=== PATIENT | female | born 1945 | race Caucasian/White ===

== ENCOUNTER → 2017-05-02 | Outpatient (CLI) | payer MEDICARE, MEDICAID ==
[~2017-05-02] MED LIST: ASPI81TA7 PO; ASTE137S; ATIV0.5T3 PO; AUGM875T27 PO; BACT800T5 PO; CALC600T7 PO; DEPA500T2 PO; DIOV320T PO; DOCQ100C PO; HALO10TA PO; ICAPCAP PO; LASI40TA PO; LEVO88TA2 PO; LIQUSOL OU; LOVA40TA PO; METF1000 PO; NICO21DI5 TD; OCEA0.65; PAXI40TA2 PO; POLY33502 PO; SYNT25TA PO; TAB-TAB PO; TRAV04OPD OU; TRAZ50TA11 PO
--- NOTE | 2017-05-02 14:51 | REPMRS ---
Patient History The patient states she had a clinical breast exam in 05/03 Patient is postmenopausal. Family history of breast cancer in paternal cousin. Digital Woman Screen Mammo: May 02, 2017 - Exam #: [id number] Bilateral CC and MLO view(s) were taken. Technologist: Criselda Gilbert, Technologist Prior study comparison: May 03, 2016, digital woman screen mammo performed at [facility]. May 03, 2015, digital woman screen mammo performed at [facility]. FINDINGS: There are scattered fibroglandular densities. There has been no change in the appearance of the mammogram from the prior studies. There is a mild amount of residual fibroglandular tissue which is fairly symmetric. There is no interval development of dominant mass, architectural distortion, or clustered microcalcification suggestive of malignancy. ASSESSMENT: BI-RADS/ACR category 1 mammogram. Negative. Recommendation Routine screening mammogram in 1 year (for women over age 40). This mammogram was interpreted with the aid of an FDA-approved computer-aided dectection system. Electronically Signed By: Celso Her MD 05/02/17 1816
== END ==
LOC: M WHC 13:44
PROVIDERS: ATTEND Nurse Practitioner Family
DX: Z12.31 Encounter for screening mammogram for malignant neoplasm of breast (principal); Z78.0 Asymptomatic menopausal state
CPT/HCPCS: G0202; G0463

== ENCOUNTER → 2017-05-16 | Outpatient (REF) | payer MEDICARE, MEDICAID ==
[2017-05-16 14:10] LABS: MEAN CORPUSCULAR HEMOGLOBIN 32.3 pg (27.0-33.0); MEAN CORPUSCULAR HGB CONC 33.7 g/dl (32.0-36.5); MEAN CORPUSCULAR VOLUME 95.7 fl (80.0-96.0); RED CELL DISTRIBUTION WIDTH 13.8 % (11.5-14.5); WHITE BLOOD COUNT 7.4 K/mm3 (4.0-10.0)
[2017-05-16 15:57] LABS: ALBUMIN 3.5 GM/DL (3.2-5.2); ALBUMIN/GLOBULIN RATIO 0.83 (1.00-1.93); ALKALINE PHOSPHATASE 81 U/L (45-117); ALT/SGPT 67 U/L (12-78); ANION GAP 9 MEQ/L (8-16); AST/SGOT 56 U/L (15-37); BILIRUBIN,TOTAL 0.3 MG/DL (0.2-1.0); BLOOD UREA NITROGEN 7 MG/DL (7-18); CALCIUM LEVEL 9.6 MG/DL (8.8-10.2); CARBON DIOXIDE LEVEL 28 MEQ/L (21-32); CHLORIDE LEVEL 100 MEQ/L (98-107); CHOLESTEROL LEVEL 187 MG/DL (<200); CREATININE FOR GFR 0.74 MG/DL (0.55-1.02); FREE T4 1.21 NG/DL (0.76-1.46); GLOMERULAR FILTRATION RATE > 60.0 (>39); GLUCOSE, FASTING 134 MG/DL (83-110); POTASSIUM SERUM 4.3 MEQ/L (3.5-5.1); SODIUM LEVEL 137 MEQ/L (136-145); TOTAL PROTEIN 7.7 GM/DL (6.4-8.2); TRIGLYCERIDES LEVEL 170 MG/DL (<150)
== END ==
LOC: M SFHCPLAZ 11:40
PROVIDERS: ATTEND Family Medicine
DX: J44.9 Chronic obstructive pulmonary disease, unspecified (principal); E11.65 Type 2 diabetes mellitus with hyperglycemia; E03.9 Hypothyroidism, unspecified; E78.5 Hyperlipidemia, unspecified; E55.9 Vitamin D deficiency, unspecified
CPT/HCPCS: 80053; 80061; 82306; 83036; 84439; 84443; 85027; G0463

== ENCOUNTER → 2017-07-16 | Outpatient (REF) | payer MEDICARE, MEDICAID ==
[2017-07-16 13:45] LABS: MEAN CORPUSCULAR HEMOGLOBIN 32.8 pg (27.0-33.0); MEAN CORPUSCULAR HGB CONC 34.6 g/dl (32.0-36.5); MEAN CORPUSCULAR VOLUME 94.6 fl (80.0-96.0); RED CELL DISTRIBUTION WIDTH 13.2 % (11.5-14.5); WHITE BLOOD COUNT 7.6 K/mm3 (4.0-10.0)
[2017-07-16 14:25] LABS: VITAMIN B12 LEVEL 737 PG/ML (247-911)
[2017-07-16 14:26] LABS: ALBUMIN 3.6 GM/DL (3.2-5.2); ALKALINE PHOSPHATASE 83 U/L (45-117); ALT/SGPT 82 U/L (12-78); ANION GAP 10 MEQ/L (8-16); AST/SGOT 69 U/L (15-37); BILIRUBIN,TOTAL 0.4 MG/DL (0.2-1.0); BLOOD UREA NITROGEN 7 MG/DL (7-18); CALCIUM LEVEL 9.6 MG/DL (8.8-10.2); CARBON DIOXIDE LEVEL 30 MEQ/L (21-32); CHLORIDE LEVEL 94 MEQ/L (98-107); FOLATE > 24.0 NG/ML (>5.4); GLOMERULAR FILTRATION RATE > 60.0 (>39); GLUCOSE, FASTING 159 MG/DL (83-110); POTASSIUM SERUM 4.6 MEQ/L (3.5-5.1); SODIUM LEVEL 134 MEQ/L (136-145); TOTAL PROTEIN 7.6 GM/DL (6.4-8.2)
== END ==
LOC: M SFHCPLAZ 10:46
PROVIDERS: ATTEND Family Medicine
DX: R53.1 Weakness (principal); E11.65 Type 2 diabetes mellitus with hyperglycemia; E87.1 Hypo-osmolality and hyponatremia; R19.7 Diarrhea, unspecified

== ENCOUNTER → 2018-04-29 | Outpatient (CLI) | payer MEDICARE, MEDICAID ==
[~2018-04-29] MED LIST changes: -ASPI81TA7 PO; -ASTE137S; -ATIV0.5T3 PO; -AUGM875T27 PO; -BACT800T5 PO; -CALC600T7 PO; -DEPA500T2 PO; -DIOV320T PO; -DOCQ100C PO; -HALO10TA PO; -ICAPCAP PO; +ISOVUE-370 76% 100ML VIAL (Q9967) As Ordered; -LASI40TA PO; -LEVO88TA2 PO; -LIQUSOL OU; -LOVA40TA PO; -METF1000 PO; -NICO21DI5 TD; -OCEA0.65; -PAXI40TA2 PO; -POLY33502 PO; -SYNT25TA PO; -TAB-TAB PO; -TRAV04OPD OU; -TRAZ50TA11 PO
[2018-04-29 16:01] LABS: ALBUMIN 3.5 GM/DL (3.2-5.2); ALBUMIN/GLOBULIN RATIO 0.83 (1.00-1.93); ALKALINE PHOSPHATASE 84 U/L (45-117); ALT/SGPT 52 U/L (12-78); ANION GAP 9 MEQ/L (8-16); AST/SGOT 43 U/L (7-37); BILIRUBIN,TOTAL 0.4 MG/DL (0.2-1.0); BLOOD UREA NITROGEN 9 MG/DL (7-18); CALCIUM LEVEL 9.6 MG/DL (8.8-10.2); CARBON DIOXIDE LEVEL 32 MEQ/L (21-32); CHLORIDE LEVEL 89 MEQ/L (98-107); CREATININE FOR GFR 0.76 MG/DL (0.55-1.30); GLOMERULAR FILTRATION RATE > 60.0 (>39); GLUCOSE, FASTING 309 MG/DL (70-100); POTASSIUM SERUM 4.5 MEQ/L (3.5-5.1); SODIUM LEVEL 130 MEQ/L (136-145); TOTAL PROTEIN 7.7 GM/DL (6.4-8.2)
== END ==
LOC: M LAB 15:10
DX: K11.1 Hypertrophy of salivary gland (principal); R22.1 Localized swelling, mass and lump, neck
CPT/HCPCS: Q9967

== ENCOUNTER → 2018-08-07 | Outpatient (REF) | payer MEDICARE, MEDICAID | LOC: M LAB REF 18:08 | DX: K11.8 Other diseases of salivary glands (principal) | CPT/HCPCS: 88173 ==

== ENCOUNTER → 2018-08-25 | Outpatient (CLI) | payer MEDICARE, MEDICAID | LOC: M WHC 13:42 | DX: Z01.419 Encounter for gynecological examination (general) (routine) without abnormal findings (principal); Z12.31 Encounter for screening mammogram for malignant neoplasm of breast (principal); Z78.0 Asymptomatic menopausal state; Z79.890 Hormone replacement therapy | CPT/HCPCS: 77067 ==

== ENCOUNTER → 2018-10-01 | Outpatient (CLI) | payer MEDICARE, MEDICAID | LOC: M RAD 13:09 | DX: Z12.2 Encounter for screening for malignant neoplasm of respiratory organs (principal); R91.8 Other nonspecific abnormal finding of lung field; G47.33 Obstructive sleep apnea (adult) (pediatric); Z87.891 Personal history of nicotine dependence | CPT/HCPCS: G0297 ==

== ENCOUNTER → 2018-10-06 | Outpatient (REF) | payer MEDICARE, MEDICAID ==
[2018-10-06 19:16] LABS: BASO # 0.1 10^3/uL (0.0-0.2); EOS # 0.1 10^3/uL (0.0-0.50); EOS % 1.2 % (0.0-3.0); HEMATOCRIT 46.6 % (36.0-47.0); IMMATURE GRANULOCYTE % 0.4 % (0-3.0); LYMPH # 2.5 10^3/uL (1.5-4.5); LYMPH % 27.9 % (24.0-44.0); MEAN CORPUSCULAR HEMOGLOBIN 31.4 pg (27.0-33.0); MEAN CORPUSCULAR HGB CONC 34.3 g/dl (32.0-36.5); MEAN CORPUSCULAR VOLUME 91.4 fl (80.0-96.0); MONO % 10.4 % (0.0-5.0); NEUTROPHILS # 5.4 10^3/uL (1.8-7.7); NEUTROPHILS % 59.1 % (36.0-66.0); PLATELET COUNT, AUTOMATED 253 10^3/uL (150-450); RED CELL DISTRIBUTION WIDTH 13.3 % (11.5-14.5); WHITE BLOOD COUNT 9.1 10^3/uL (4.0-10.0)
[2018-10-06 19:31] LABS: ALBUMIN 3.4 GM/DL (3.2-5.2); ALBUMIN/GLOBULIN RATIO 0.79 (1.00-1.93); ALKALINE PHOSPHATASE 86 U/L (45-117); ALT/SGPT 46 U/L (12-78); ANION GAP 8 MEQ/L (8-16); AST/SGOT 37 U/L (7-37); BILIRUBIN,TOTAL 0.3 MG/DL (0.2-1.0); BLOOD UREA NITROGEN 9 MG/DL (7-18); CALCIUM LEVEL 8.9 MG/DL (8.8-10.2); CARBON DIOXIDE LEVEL 29 MEQ/L (21-32); CHLORIDE LEVEL 98 MEQ/L (98-107); CHOLESTEROL LEVEL 172 MG/DL (<200); CREATININE FOR GFR 0.72 MG/DL (0.55-1.30); FOLATE > 24.0 NG/ML; GLOMERULAR FILTRATION RATE > 60.0 (>39); GLUCOSE, FASTING 317 MG/DL (70-100); HDL CHOLESTEROL 39 MG/DL (>40); LDL CHOLESTEROL 88 MG/DL (<100); NON-HDL-C 133 MG/DL; POTASSIUM SERUM 3.9 MEQ/L (3.5-5.1); SODIUM LEVEL 135 MEQ/L (136-145); TOTAL 25(OH) VITAMIN D 34.3 NG/ML (30.0-100.0); TOTAL PROTEIN 7.7 GM/DL (6.4-8.2); TRIGLYCERIDES LEVEL 224 MG/DL (<150); VITAMIN B12 LEVEL 1136 PG/ML
[2018-10-06 19:32] LABS: ESTIMATED AVERAGE GLUCOSE 298 MG/DL (60-110)
== END ==
LOC: M LAB REF 19:00
DX: I10 Essential (primary) hypertension (principal); E78.70 Disorder of bile acid and cholesterol metabolism, unspecified; E11.8 Type 2 diabetes mellitus with unspecified complications; E03.9 Hypothyroidism, unspecified
CPT/HCPCS: 82746

== ENCOUNTER → 2018-10-22 | Outpatient (CLI) | payer MEDICARE, MEDICAID | LOC: M RAD 15:33 | DX: R91.8 Other nonspecific abnormal finding of lung field (principal) | CPT/HCPCS: 71250 ==

== ENCOUNTER → 2018-11-13 | Outpatient (CLI) | payer MEDICARE, MEDICAID ==
[~2018-11-13] MED LIST changes: +ASPI81TA7 PO; +ASTE137S; +ATIV0.5T3 PO; +AUGM875T27 PO; +BACT800T5 PO; +CALC600T7 PO; +DEPA500T2 PO; +DIOV320T PO; +DOCQ100C PO; +HALO10TA PO; +ICAPCAP PO; -ISOVUE-370 76% 100ML VIAL (Q9967) As Ordered; +ISOVUE-370 76% 100ML VIAL (Q9967) As Ordered ONE; +LASI40TA9 PO; +LEVO88TA2 PO; +LIQUSOL OU; +LOVA40TA PO; +METF1000 PO; +NICO21DI6 TD; +OCEA0.65; +PAXI40TA2 PO; +POLY33502 PO; +SYNT25TA PO; +TAB-TAB PO; +TRAV04OPD OU; +TRAZ-160 PO
--- NOTE | 2018-11-13 13:54 | REP ---
SOFT TISSUE CT STUDY OF THE NECK WITH IV CONTRAST: HISTORY: "Other disease of the salivary glands" CT CONTRAST DOSE: 75 mL of intravenous Isovue 370. Comparison CT study April 29, 2018. CT FINDINGS: A skin marker is placed in the skin over the right side of the neck as on the prior study to denote the level of palpable abnormality. Normal appearing parotid lymph nodes are again seen bilaterally. The parotid glands are normal in radiographic density. No new mass lesion is observed. The right submandibular gland is still a little larger than the left however it has decreased in size today measuring 2.5 x 2.1 x 3.4 cm, previously 3.2 x 2.8 x 4.4 cm. No salivary gland mass lesion is observed. The adjacent soft tissues show no evidence of edematous change. The platysma is not thickened on either side. There are scattered normal-sized anterior jugular lymph nodes. No other mass lesion or cyst is seen. IMPRESSION: The submandibular glands are somewhat smaller today. Stable intraparotid lymph nodes and neck lymph nodes are seen. No mass or adenopathy is observed. Electronically Signed by Samm Jacobs MD 11/13/2018 04:15 P
== END ==
LOC: M RAD 11:15
PROVIDERS: ATTEND Otolaryngology
DX: K11.8 Other diseases of salivary glands (principal)
CPT/HCPCS: 70491; Q9967

== ENCOUNTER → 2018-11-20 | Outpatient (REF) | payer MEDICARE, MEDICAID ==
[~2018-11-20] MED LIST changes: -ISOVUE-370 76% 100ML VIAL (Q9967) As Ordered ONE
[2018-11-20 18:38] LABS: INR 0.99; PROTHROMBIN TIME 13.2 SECONDS (12.1-14.4)
[2018-11-20 18:39] LABS: PARTIAL THROMBOPLASTIN TIME 30.5 SECONDS (25.4-37.6)
== END ==
LOC: M LAB REF 16:52
PROVIDERS: ATTEND Internal Medicine Pulmonary Disease
DX: Z01.82 Encounter for allergy testing (principal); Z01.812 Encounter for preprocedural laboratory examination; Z79.01 Long term (current) use of anticoagulants

== ENCOUNTER → 2018-12-04 | Outpatient (CLI) | payer MEDICARE, MEDICAID ==
[~2018-12-04] MED LIST changes: +LIDOCAINE 1% MDV 20ML VIAL As Ordered ONE
--- NOTE | 2018-12-04 10:17 | REP ---
PA CHEST X-RAY: Single view. HISTORY: The patient is immediately status post CT guided needle biopsy for right upper lobe nodule. FINDINGS: The lungs are well inflated and no evidence of hemorrhage or pneumothorax is seen. No pleural effusion is seen. Cardiomediastinal silhouette is unremarkable. The CT target nodular opacity is not well visualized on PA chest x-ray. IMPRESSION: No complication seen. Post needle biopsy film. Electronically Signed by Samm Jacobs MD 12/04/2018 10:38 A
--- NOTE | 2018-12-04 19:56 | REP ---
CT-GUIDED RIGHT UPPER LOBE LUNG BIOPSY The procedure was performed under the direct supervision of Dr. Jacobs. Patient has a history of a nodular lesion in the anterior segment of the right upper lobe seen on a previous CT scan dated 10/22/2018. The risks and benefits of the procedure were explained to the patient and informed consent was obtained. The right upper lobe lung nodule was localized using CT guidance. The skin was prepped and draped in a sterile fashion. 1% lidocaine was used as a local anesthetic. Using CT guidance a 19/20 gauge coaxial needle biopsy system was inserted and advanced into the nodule. Four core biopsy samples were obtained and sent to lab. The patient tolerated the procedure well and there were no immediate complications. After the appropriate amount of monitored convalescence the patient was discharged from the department. Reviewed by BROOKLYN Gatica 12/04/2018 05:04 P Electronically Signed by Samm Jacobs MD 12/04/2018 07:47 P
== END ==
LOC: M RADPRO 08:01
PROVIDERS: ATTEND Internal Medicine Pulmonary Disease
DX: C34.11 Malignant neoplasm of upper lobe, right bronchus or lung (principal)

== ENCOUNTER → 2018-12-22 | Outpatient (CLI) | payer MEDICARE, MEDICAID ==
[~2018-12-22] MED LIST changes: -LIDOCAINE 1% MDV 20ML VIAL As Ordered ONE
--- NOTE | 2018-12-23 15:03 | REP ---
PET/CT: History: Initial staging squamous cell carcinoma of the lung. Comparisons: Comparison CT study of the chest is from October 22, 2018. The patient is status post CT guided needle biopsy right upper lobe nodule December 04, 2018. TECHNIQUE: 71 minutes following the intravenous injection of a 9.4 mCi dose of F-18 FDG, three-dimensional PET scintigraphy is acquired from the skull base to the proximal thighs. Triplanar noncontrast CT scanning is acquired through the same anatomic range for attenuation correction, and image registration with scan parameters optimized to minimize radiation exposure to the patient. PET scintigraphy and CT datasets were fused and displayed on a workstation with multiplanar and projection display capability. PET/CT Findings: The biopsy-proven squamous cell carcinoma of the right upper lobe is mildly hypermetabolic with maximum standard uptake value 2.3. The other small more posterolateral right upper lobe nodule seen on recent CT study is not hypermetabolic. Maximum standard uptake value is 1.1. No hilar or mediastinal hypermetabolic uptake is seen. No other abnormal hypermetabolic uptake is seen in the chest. Head and neck soft tissues are unremarkable. In the abdomen and pelvis there is no abnormal adrenal or hepatic hypermetabolic uptake. There are several accessory splenules near the splenic hilus and tail of the pancreas. Impression: Mildly hypermetabolic uptake in the malignant nodule in the anterior segment right upper lobe. No other abnormal hypermetabolic uptake is seen. Electronically Signed by Samm Jacobs MD 12/23/2018 07:05 P
== END ==
LOC: M PLARAD 14:27
PROVIDERS: ATTEND Internal Medicine Pulmonary Disease
DX: C34.11 Malignant neoplasm of upper lobe, right bronchus or lung (principal)
CPT/HCPCS: 78815; A9552

== ENCOUNTER → 2019-02-08 | Outpatient (REF) | payer MEDICARE, MEDICAID ==
[2019-02-08 18:15] LABS: BASO # 0.1 10^3/uL (0.0-0.2); BASO % 1.1 % (0.0-1.0); EOS # 0.1 10^3/uL (0.0-0.50); EOS % 1.1 % (0.0-3.0); HEMATOCRIT 45.5 % (36.0-47.0); HEMOGLOBIN 15.4 g/dl (12.0-15.5); LYMPH # 2.6 10^3/uL (1.5-4.5); LYMPH % 28.9 % (24.0-44.0); MEAN CORPUSCULAR HEMOGLOBIN 32.2 pg (27.0-33.0); MEAN CORPUSCULAR HGB CONC 33.8 g/dl (32.0-36.5); MEAN CORPUSCULAR VOLUME 95.2 fl (80.0-96.0); MONO # 0.8 10^3/uL (0.0-0.8); MONO % 9.4 % (0.0-5.0); NEUTROPHILS # 5.3 10^3/uL (1.8-7.7); NEUTROPHILS % 59.2 % (36.0-66.0); PLATELET COUNT, AUTOMATED 257 10^3/uL (150-450); RED BLOOD COUNT 4.78 10^6/uL (4.00-5.40)
[2019-02-08 18:27] LABS: APPEARANCE, URINE CLEAR (CLEAR); BACTERIA, URINE AUTO NEGATIVE (NEGATIVE); BILIRUBIN, URINE AUTO NEGATIVE (NEGATIVE); BLOOD, URINE BLOOD NEGATIVE (NEGATIVE); COLOR, URINE YELLOW (YELLOW); GLUCOSE, URINE (UA) AUTO 3+ mg/dL (NEGATIVE); KETONE, URINE AUTO TRACE mg/dL (NEGATIVE); LEUKOCYTE ESTERASE, URINE AUTO TRACE (NEGATIVE); MUCUS, URINE SMALL (NEGATIVE); NITRITE, URINE AUTO NEGATIVE (NEGATIVE); PROTEIN, URINE AUTO NEGATIVE (NEGATIVE); RBC, URINE AUTO 1 /HPF (0-3); SPECIFIC GRAVITY URINE AUTO 1.028 (1.002-1.035); SQUAMOUS EPITHELIAL CELL UR AU 1 /HPF (0-6); UROBILINOGEN, URINE AUTO 0.2 mg/dL (0.0-2.0); WBC, URINE AUTO 4 /HPF (0-3)
[2019-02-08 19:07] LABS: ALBUMIN 3.4 GM/DL (3.2-5.2); ALT/SGPT 36 U/L (12-78); BILIRUBIN,TOTAL 0.3 MG/DL (0.2-1.0); BLOOD UREA NITROGEN 13 MG/DL (7-18); CALCIUM LEVEL 9.4 MG/DL (8.8-10.2); CARBON DIOXIDE LEVEL 28 MEQ/L (21-32); CHLORIDE LEVEL 96 MEQ/L (98-107); CHOLESTEROL LEVEL 212 MG/DL (<200); CHOLESTEROL RISK RATIO 5.435 (<5); CREATININE FOR GFR 0.89 MG/DL (0.55-1.30); FOLATE > 24.0 NG/ML; GLOMERULAR FILTRATION RATE > 60.0 (>39); GLUCOSE, FASTING 422 MG/DL (70-100); HDL CHOLESTEROL 39 MG/DL (>40); LDL CHOLESTEROL 105 MG/DL (<100); NON-HDL-C 173 MG/DL; SODIUM LEVEL 133 MEQ/L (136-145); TOTAL 25(OH) VITAMIN D 25.5 NG/ML (30.0-100.0); TOTAL PROTEIN 7.4 GM/DL (6.4-8.2); TRIGLYCERIDES LEVEL 338 MG/DL (<150); VITAMIN B12 LEVEL 1132 PG/ML
== END ==
LOC: M LAB REF 16:52
PROVIDERS: ATTEND Nurse Practitioner Family
DX: N39.0 Urinary tract infection, site not specified (principal)

== ENCOUNTER → 2019-04-16 | Outpatient (REF) | payer MEDICARE, MEDICAID ==
[~2019-04-16] MED LIST changes: -HALO10TA PO; +HALO1TAB29 PO; -TRAZ-160 PO; +TRAZ-252 PO
[2019-04-16 19:21] LABS: APPEARANCE, URINE HAZY (CLEAR); BACTERIA, URINE AUTO 1+ (NEGATIVE); BILIRUBIN, URINE AUTO NEGATIVE (NEGATIVE); BLOOD, URINE BLOOD NEGATIVE (NEGATIVE); COLOR, URINE YELLOW (YELLOW); GLUCOSE, URINE (UA) AUTO 2+ mg/dL (NEGATIVE); KETONE, URINE AUTO TRACE mg/dL (NEGATIVE); LEUKOCYTE ESTERASE, URINE AUTO 2+ (NEGATIVE); MUCUS, URINE SMALL (NEGATIVE); NITRITE, URINE AUTO NEGATIVE (NEGATIVE); PROTEIN, URINE AUTO NEGATIVE (NEGATIVE); RBC, URINE AUTO 1 /HPF (0-3); SPECIFIC GRAVITY URINE AUTO 1.015 (1.002-1.035); SQUAMOUS EPITHELIAL CELL UR AU 2 /HPF (0-6); UROBILINOGEN, URINE AUTO 0.2 mg/dL (0.0-2.0); WBC, URINE AUTO 9 /HPF (0-3)
== END ==
LOC: M LAB REF 18:30
PROVIDERS: ATTEND Nurse Practitioner Family
DX: R30.0 Dysuria (principal)

== ENCOUNTER → 2019-04-29 | Outpatient (REF) | payer MEDICARE, MEDICAID ==
[2019-04-29 18:09] LABS: APPEARANCE, URINE CLEAR (CLEAR); BACTERIA, URINE AUTO NEGATIVE (NEGATIVE); BILIRUBIN, URINE AUTO NEGATIVE (NEGATIVE); BLOOD, URINE BLOOD NEGATIVE (NEGATIVE); COLOR, URINE YELLOW (YELLOW); GLUCOSE, URINE (UA) AUTO 2+ mg/dL (NEGATIVE); KETONE, URINE AUTO TRACE mg/dL (NEGATIVE); LEUKOCYTE ESTERASE, URINE AUTO TRACE (NEGATIVE); NITRITE, URINE AUTO NEGATIVE (NEGATIVE); PROTEIN, URINE AUTO NEGATIVE (NEGATIVE); RBC, URINE AUTO 0 /HPF (0-3); SPECIFIC GRAVITY URINE AUTO 1.009 (1.002-1.035); SQUAMOUS EPITHELIAL CELL UR AU 0 /HPF (0-6); UROBILINOGEN, URINE AUTO 0.2 mg/dL (0.0-2.0); WBC, URINE AUTO 4 /HPF (0-3)
== END ==
LOC: M LAB REF 17:27
PROVIDERS: ATTEND Nurse Practitioner Family
DX: R30.0 Dysuria (principal)

== ENCOUNTER → 2019-06-28 | Outpatient (REF) | payer MEDICARE, MEDICAID ==
[2019-06-28 13:42] LABS: BASO # 0.1 10^3/uL (0.0-0.2); BASO % 1.2 % (0.0-1.0); EOS # 0.1 10^3/uL (0.0-0.50); EOS % 1.8 % (0.0-3.0); HEMATOCRIT 44.3 % (36.0-47.0); HEMOGLOBIN 15.4 g/dl (12.0-15.5); LYMPH # 1.6 10^3/uL (1.5-4.5); LYMPH % 23.8 % (24.0-44.0); MEAN CORPUSCULAR HEMOGLOBIN 32.6 pg (27.0-33.0); MEAN CORPUSCULAR HGB CONC 34.8 g/dl (32.0-36.5); MEAN CORPUSCULAR VOLUME 93.9 fl (80.0-96.0); MONO # 0.9 10^3/uL (0.0-0.8); MONO % 12.9 % (0.0-5.0); NEUTROPHILS # 3.9 10^3/uL (1.8-7.7); NEUTROPHILS % 59.7 % (36.0-66.0); PLATELET COUNT, AUTOMATED 270 10^3/uL (150-450); RED BLOOD COUNT 4.72 10^6/uL (4.00-5.40); WHITE BLOOD COUNT 6.6 10^3/uL (4.0-10.0)
[2019-06-28 14:17] LABS: ALBUMIN 3.7 GM/DL (3.2-5.2); ALT/SGPT 55 U/L (12-78); BILIRUBIN,TOTAL 0.4 MG/DL (0.2-1.0); BLOOD UREA NITROGEN 11 MG/DL (7-18); CALCIUM LEVEL 9.6 MG/DL (8.8-10.2); CARBON DIOXIDE LEVEL 30 MEQ/L (21-32); CHLORIDE LEVEL 95 MEQ/L (98-107); CHOLESTEROL LEVEL 184 MG/DL (<200); CHOLESTEROL RISK RATIO 3.914 (<5); CREATININE FOR GFR 0.66 MG/DL (0.55-1.30); GLOMERULAR FILTRATION RATE > 60.0 (>39); GLUCOSE, FASTING 203 MG/DL (70-100); HDL CHOLESTEROL 47 MG/DL (>40); LDL CHOLESTEROL 107 MG/DL (<100); NON-HDL-C 137 MG/DL; POTASSIUM SERUM 4.2 MEQ/L (3.5-5.1); SODIUM LEVEL 133 MEQ/L (136-145); TOTAL PROTEIN 7.8 GM/DL (6.4-8.2); TRIGLYCERIDES LEVEL 150 MG/DL (<150)
== END ==
LOC: M LAB REF 13:00
PROVIDERS: ATTEND Nurse Practitioner Family
DX: I10 Essential (primary) hypertension (principal); E11.8 Type 2 diabetes mellitus with unspecified complications; E78.70 Disorder of bile acid and cholesterol metabolism, unspecified

== ENCOUNTER → 2019-07-07 | Outpatient (REF) | payer MEDICARE, MEDICAID ==
[2019-07-07 20:25] LABS: APPEARANCE, URINE CLEAR (CLEAR); BACTERIA, URINE AUTO NEGATIVE (NEGATIVE); BILIRUBIN, URINE AUTO NEGATIVE (NEGATIVE); BLOOD, URINE BLOOD NEGATIVE (NEGATIVE); COLOR, URINE YELLOW (YELLOW); GLUCOSE, URINE (UA) AUTO 3+ mg/dL (NEGATIVE); KETONE, URINE AUTO TRACE mg/dL (NEGATIVE); LEUKOCYTE ESTERASE, URINE AUTO NEGATIVE (NEGATIVE); NITRITE, URINE AUTO NEGATIVE (NEGATIVE); PROTEIN, URINE AUTO NEGATIVE (NEGATIVE); RBC, URINE AUTO 1 /HPF (0-3); SPECIFIC GRAVITY URINE AUTO 1.023 (1.002-1.035); SQUAMOUS EPITHELIAL CELL UR AU 1 /HPF (0-6); UROBILINOGEN, URINE AUTO 0.2 mg/dL (0.0-2.0); WBC, URINE AUTO 3 /HPF (0-3)
== END ==
LOC: M LAB REF 19:09
PROVIDERS: ATTEND Nurse Practitioner Family
DX: R30.0 Dysuria (principal)

== ENCOUNTER → 2019-07-29 | Outpatient (REF) | payer MEDICARE, MEDICAID, OTHER ==
[2019-07-29 19:59] LABS: APPEARANCE, URINE HAZY (CLEAR); BACTERIA, URINE AUTO NEGATIVE (NEGATIVE); BILIRUBIN, URINE AUTO NEGATIVE (NEGATIVE); BLOOD, URINE BLOOD NEGATIVE (NEGATIVE); COLOR, URINE YELLOW (YELLOW); GLUCOSE, URINE (UA) AUTO 3+ mg/dL (NEGATIVE); KETONE, URINE AUTO 1+ mg/dL (NEGATIVE); LEUKOCYTE ESTERASE, URINE AUTO TRACE (NEGATIVE); NITRITE, URINE AUTO NEGATIVE (NEGATIVE); PROTEIN, URINE AUTO NEGATIVE (NEGATIVE); RBC, URINE AUTO 3 /HPF (0-3); SPECIFIC GRAVITY URINE AUTO 1.031 (1.002-1.035); SQUAMOUS EPITHELIAL CELL UR AU 2 /HPF (0-6); UROBILINOGEN, URINE AUTO 0.2 mg/dL (0.0-2.0); WBC, URINE AUTO 10 /HPF (0-3)
== END ==
LOC: M LAB REF 19:14
PROVIDERS: ATTEND Nurse Practitioner Family
DX: R35.0 Frequency of micturition (principal); R30.0 Dysuria

== ENCOUNTER → 2019-08-02 | Outpatient (CLI) | payer MEDICARE, MEDICAID ==
[~2019-08-02] MED LIST changes: +AMMO12CR7; +BRIM1OPD; +GLIP10TA18; +LATU80TA; +LOSA50TA88; +NYST10CR
--- NOTE | 2019-08-02 14:12 | REP ---
CT of the chest without IV contrast for restaging of lung carcinoma. Comparison is 12/23/2017. The known irregular mass anteromedially in the right upper lobe has increased in size. The mass today measures: 3.1 cm AP . by 1.9 cm transversely . by 1.9 cm craniocaudad. Previously this measured: 2.9 cm AP by 1.0 cm transversely by 1.3 cm craniocaudad. The known lung nodule posterolaterally in the right upper lobe previously measured 6.2 mm. This nodule has enlarged and today measures 0.5 cm. There are no other lung nodules, as previously. There are no infiltrates or pleural effusions. There is no mediastinal adenopathy. This is unchanged. There are enlarged axillary nodes bilaterally with normal fatty paulino, unchanged. These do not appear pathologically enlarged. The study is insensitive for hilar lymph node enlargement in the absence of IV contrast. The thoracic aorta is unremarkable except for calcified atheroma. Cardiac size is normal. In the upper abdomen there is no adrenal mass. The liver again appears prominent, unchanged. The gallbladder and pancreas are unremarkable. Spleen is normal size. To splenules medial t this spleen are unchanged. Impression: The to be known right lung nodules have increased in size. There are no new lung nodules. There are no infiltrates or effusions. No mediastinal or axillary lymphadenopathy. Prominent liver, unchanged. Electronically Signed by Celso Hernandez MD 08/02/2019 02:05 P
== END ==
LOC: M RAD 12:07
PROVIDERS: ATTEND Radiology Radiation Oncology
DX: C34.91 Malignant neoplasm of unspecified part of right bronchus or lung (principal)

== ENCOUNTER → 2019-08-26 | Outpatient (CLI) | payer MEDICARE, MEDICAID ==
[~2019-08-26] MED LIST changes: -AMMO12CR7; -BRIM1OPD; -GLIP10TA18; -LATU80TA; -LOSA50TA88; -NYST10CR
--- NOTE | 2019-08-26 15:37 | REPMRS ---
Patient History The patient states she had a clinical breast exam in 08/2019. Patient is postmenopausal, had previous chest radiation therapy at age 72, and has history of lung cancer at age 72. Family history of breast cancer in paternal cousin, breast cancer in paternal aunt. Took estrogen for 1 year. Digital Woman Screen Mammo: August 26, 2019 - Exam #: [id number] Bilateral CC and MLO view(s) were taken. Technologist: Criselda Gilbert, Technologist Prior study comparison: August 25, 2018, bilateral digital woman screen mammo performed at [facility]. May 02, 2017, digital woman screen mammo performed at [facility]. May 03, 2016, digital woman screen mammo performed at [facility]. FINDINGS: There are scattered fibroglandular densities. There has been no change in the appearance of the mammogram from the prior studies. There is a mild amount of scattered fibroglandular density which is fairly symmetric. There is no interval development of dominant mass, architectural distortion, or grouped microcalcification suggestive of malignancy. 3-D tomosynthesis shows no additional findings. Assessment: BI-RADS/ACR category 1 mammogram. Negative Mammogram. Recommendation Routine screening mammogram of both breasts in 1 year (for women over age 40). This patient's Lifetime Breast Cancer Risk is estimated at 5.9 %. This mammogram was interpreted with the aid of an FDA-approved computer-aided dectection system. Electronically Signed By: Wojciech Jacobs MD 08/26/19 [id number]
== END ==
LOC: M WHC 13:48
PROVIDERS: ATTEND Nurse Practitioner Family
DX: Z12.31 Encounter for screening mammogram for malignant neoplasm of breast (principal); Z78.0 Asymptomatic menopausal state; Z92.3 Personal history of irradiation; Z92.23 Personal history of estrogen therapy
CPT/HCPCS: 77063; 77067; G0463

== ENCOUNTER → 2019-09-14 | Outpatient (CLI) | payer MEDICARE, MEDICAID | LOC: M PLARAD 10:28 | PROVIDERS: ATTEND Radiology Radiation Oncology | DX: C34.11 Malignant neoplasm of upper lobe, right bronchus or lung (principal); Z53.9 Procedure and treatment not carried out, unspecified reason ==

== ENCOUNTER → 2019-10-12 | Outpatient (CLI) | payer MEDICARE, MEDICAID ==
--- NOTE | 2019-10-13 09:46 | REP ---
PET/CT: HISTORY: Restaging right upper lobe lung carcinoma. Status post CT guided needle biopsy showing moderately differentiated non-small cell carcinoma, consistent with squamous cell carcinoma. Treated with SBRT. Enlarging separate nodule posteriorly in the right upper lobe. COMPARISONS: Comparison PET/CT study December 22, 2018. Comparison CT study of the chest is from August 02, 2019. TECHNIQUE: Approximately 45 minutes following the intravenous injection of a 8.15 mCi dose of F-18 FDG, three-dimensional PET scintigraphy is acquired from the skull base to the proximal thighs. Triplanar noncontrast CT scanning is acquired through the same anatomic range for attenuation correction, and image registration with scan parameters optimized to minimize radiation exposure to the patient. PET scintigraphy and CT datasets were fused and displayed on a workstation with multiplanar and projection display capability. PET/CT FINDINGS: Head and neck soft tissues are unremarkable. No supraclavicular or other hypermetabolic adenopathy is seen. In the chest, the biopsy-proven, non-small cell carcinoma anterior aspect of the right upper lobe which was treated with SBRT, shows mildly hypermetabolic uptake. Maximum standard uptake value is 4.02. Previously, this was 2.3. This residual hypermetabolic uptake may be related to postradiation fibrosis at the treatment site. The more posteriorly situated smaller nodule remains non-hypermetabolic. Maximum standard uptake value in this is 1.34, previously 1.1. No other abnormal hypermetabolic uptake is seen in the thorax. No abnormal hypermetabolic uptake is seen in the abdomen or pelvis. IMPRESSION: Hypermetabolic uptake persists in the treated lesion in the anterior segment of the right upper lobe. The smaller nodule more posterolaterally in the right upper lobe remains non avid. No other hypermetabolic uptake. Electronically Signed by Samm Jacobs MD 10/13/2019 11:17 A
== END ==
LOC: M PLARAD 14:19
PROVIDERS: ATTEND Radiology Radiation Oncology
DX: R91.8 Other nonspecific abnormal finding of lung field (principal); C34.11 Malignant neoplasm of upper lobe, right bronchus or lung
CPT/HCPCS: 78815; A9552

== ENCOUNTER 2019-10-31 10:16 | Emergency (ER) | payer MEDICARE, MEDICAID ==
[~2019-10-31] VITALS: Ht 165.1 cm; Wt 93.2 kg
[2019-10-31] MEDS ORDERED: ASPIRIN 81 MG CHEW TABLET PO ONE (10:45)
[2019-10-31 10:51] LABS: BASO # 0.1 10^3/uL (0.0-0.2); BASO % 1.1 % (0.0-1.0); EOS # 0.1 10^3/uL (0.0-0.5); EOS % 1.8 % (0.0-3.0); HEMATOCRIT 43.3 % (36.0-47.0); HEMOGLOBIN 14.9 g/dl (12.0-15.5); LYMPH # 1.7 10^3/uL (1.5-5.0); LYMPH % 23.8 % (24.0-44.0); MEAN CORPUSCULAR HEMOGLOBIN 31.8 pg (27.0-33.0); MEAN CORPUSCULAR HGB CONC 34.4 g/dl (32.0-36.5); MEAN CORPUSCULAR VOLUME 92.5 fl (80.0-96.0); MONO % 13.4 % (0.0-5.0); NEUTROPHILS # 4.3 10^3/uL (1.5-8.5); NEUTROPHILS % 59.5 % (36.0-66.0); PLATELET COUNT, AUTOMATED 272 10^3/uL (150-450); RED BLOOD COUNT 4.68 10^6/uL (4.00-5.40); WHITE BLOOD COUNT 7.2 10^3/uL (4.0-10.0)
--- NOTE | 2019-10-31 10:57 | REP ---
Portable chest x-ray: Single view. History: Left chest pain. Comparison study: December 04, 2018. Findings: EKG monitoring electrodes overlie the chest. Heart is not enlarged. Pulmonary vasculature is not increased. Pleural angles are sharp. There are degenerative changes in the thoracic spine. Impression: No acute disease. Electronically Signed by Samm Jacobs MD 10/31/2019 10:48 A
[2019-10-31 11:08] LABS: INR 1.08; PROTHROMBIN TIME 13.7 SECONDS (11.8-14.0)
[2019-10-31 11:09] LABS: PARTIAL THROMBOPLASTIN TIME 28.4 SECONDS (25.0-38.4)
[2019-10-31 11:21] LABS: ALBUMIN 3.3 GM/DL (3.2-5.2); ALT/SGPT 41 U/L (12-78); BILIRUBIN,DIRECT 0.2 MG/DL (0.0-0.2); BILIRUBIN,TOTAL 0.3 MG/DL (0.2-1.0); BLOOD UREA NITROGEN 10 MG/DL (7-18); CALCIUM LEVEL 9.4 MG/DL (8.8-10.2); CARBON DIOXIDE LEVEL 34 MEQ/L (21-32); CHLORIDE LEVEL 91 MEQ/L (98-107); CK-MB VALUE MASS 1.4 NG/ML (<3.6); CPK CREATINE PHOSPHOKINASE 103 U/L (26-192); FREE T4 1.31 NG/DL (0.76-1.46); GLOMERULAR FILTRATION RATE > 60.0 (>39); GLUCOSE, FASTING 296 MG/DL (70-100); LIPASE 153 U/L (73-393); MB/CK RELATIVE INDEX 1.36 (< OR =4); NT-PRO BNP 67 PG/ML (<125); POTASSIUM SERUM 3.6 MEQ/L (3.5-5.1); SODIUM LEVEL 135 MEQ/L (136-145); TOTAL PROTEIN 7.6 GM/DL (6.4-8.2); TROPONIN I < 0.02 NG/ML (< 0.10)
[2019-10-31] MEDS ORDERED: ISOVUE-370 76% 100ML VIAL (Q9967) As Ordered ONE ×2 (11:35→12:48)
[2019-10-31] MEDS ORDERED: BRIM1OPD (11:39)
[2019-10-31] MEDS ORDERED: LATU80TA (11:39)
[2019-10-31] MEDS ORDERED: GLIP10TA18 (11:39)
[2019-10-31] MEDS ORDERED: LOSA50TA88 (11:39)
[2019-10-31] MEDS ORDERED: NYST10CR (11:39)
[2019-10-31] MEDS ORDERED: AMMO12CR7 (11:39)
[2019-10-31 11:44] LABS: ETHYL ALCOHOL (ETHANOL) < 0.003 % (0.000-0.010)
[2019-10-31] MEDS ORDERED: ACETAMINOPHEN 650MG ER TAB (TYLENOL ARTHRITIS) PO ONE (14:00)
--- NOTE | 2019-10-31 14:02 | REP ---
CT pulmonary angiogram: With IV contrast. History: Chest pain, rule out pulmonary embolus. Comparison studies: Comparison noncontrast chest CT study August 02, 2019. Comparison CT study is also reviewed from October 22, 2018. Contrast dose: 100 mL of Isovue [address] technique: Helical scanning is acquired and overlapping 1.5 mm and contiguous 3 mm axial images are reformatted. In addition, maximum intensity projection and multiplanar re-formation images are generated in sagittal and coronal imaging projections. A second acquisition was necessitated by leaking intravenous line with the first injection. CT pulmonary angiographic findings: There is good opacification in the pulmonary arterial tree. There is no CT evidence of pulmonary embolus. No evidence of aortic aneurysm or dissection is seen. Some vascular calcification is noted. There is no evidence of pleural effusion or pericardial effusion. There is a bilobed appearing peripheral pulmonary nodule in the right upper lobe on page 40 of 90 in series 402 of today's study. This was noted previously. It measures 10 mm today, previously 6 mm on October 22, 2018. In addition, there is a focal atelectatic zone in the anterior aspect of the right upper lobe which is pleural-based. This is a little more confluent than the October 22, 2018 abnormality in this location. It is less nodular. No other pulmonary nodule is seen. No adrenal lesion is observed. There is an accessory splenule. There is fatty infiltration of the liver. There are scattered ground-glass opacity areas in the upper lobes and superior portions of the lower lobes bilaterally, question mild pulmonary edema. Impression: 1. No CT evidence of pulmonary embolus. 2. 10 mm bilobed right upper lobe pulmonary nodule appears somewhat larger than on the October 24, 2018 prior study. 3. The lesion previously noted in the anterior segment of the right upper lobe appears more atelectatic and a little less nodular than on the prior study. It is otherwise unchanged. 4. Scattered areas of ground-glass opacity are seen in the upper lobes and midlung zones bilaterally, question mild pulmonary edema pattern. Electronically Signed by Samm Jacobs MD 10/31/2019 02:46 P
[2019-10-31 15:47] LABS: CK-MB VALUE MASS 1.4 NG/ML (<3.6); CPK CREATINE PHOSPHOKINASE 108 U/L (26-192); TROPONIN I < 0.02 NG/ML (< 0.10)
[2019-10-31 16:30] VITALS: BP 170/73
--- NOTE | 2019-10-31 19:51 | ECGEPIP ---
[facility] - ED Test Date: 2019-10-31 Pat Name: MAITE BELLA Department: Room: - Gender: Female Telephone Messenger: : 1945 Requested By: Palma Gomez Order Number: [id number] Reading MD: Palma Gomez Measurements Intervals [place] Rate: 86 P: 44 ID: 173 QRS: -42 QRSD: 105 T: 32 QT: 397 QTc: 475 Interpretive Statements SINUS RHYTHM MARKED LEFT AXIS DEVIATION POOR R WAVE PROGRESSION NONSPECIFIC ST T WAVE CHANGES BORDERLINE PROLONGED QTC CW 10/12/[address] T WAVE CHANGES Electronically Signed on 10-31-2019 19:51:39 EST by Palma Gomez
--- NOTE | 2019-11-01 00:58 | ECGEPIP ---
[facility] - ED Test Date: 2019-10-31 Pat Name: MAITE BELLA Department: Room: - Gender: Female Flange Turner: : 1945 Requested By: Palma Gomez Order Number: [id number] Reading MD: Yg Tellez Measurements Intervals [place] Rate: 87 P: 40 SC: 176 QRS: -30 QRSD: 104 T: 30 QT: 390 QTc: 470 Interpretive Statements SINUS RHYTHM WITH OCCASIONAL SUPRAVENTRICULAR PREMATURE COMPLEXES BORDERLINE LEFT AXIS DEVIATION Borderline prolonged QT interval Septal Q waves Similar to tracing done 103 on same date Electronically Signed on 11-01-2019 0:58:31 EST by Yg Tellez
--- NOTE | 2019-11-01 01:19 | ECGEPIP ---
[facility] Test Date: 2019-10-31 Pat Name: MAITE BELLA Department: Room: - Gender: Female [employer] Care Social [employer]er: RO : 1945 Requested By: Palma Gomez Order Number: [id number] Reading MD: Yg Tellez Measurements Intervals [place] Rate: 84 P: 43 NJ: 177 QRS: -32 QRSD: 99 T: 49 QT: 387 QTc: 459 Interpretive Statements SINUS RHYTHM Left axis deviation Nonspecific T wave abnormality Similar to tracing done 1032 on the same date Electronically Signed on 11-01-2019 1:19:24 EST by Yg Tellez
--- NOTE | 2019-11-01 13:00 | ED PDOC ---
Post-Departure Follow-Up KAREY MAXWELL faxed formal report of cta chest for fu Palma Sumner MD Nov 01, 2019 13:00
== END 2019-10-31 16:48 | disposition home or self-care (01) ==
LOC: EDBD 10:16 → M ED 10:16
DX: R91.1 Solitary pulmonary nodule (principal); R07.9 Chest pain, unspecified; E11.9 Type 2 diabetes mellitus without complications; I10 Essential (primary) hypertension; E78.5 Hyperlipidemia, unspecified; E07.9 Disorder of thyroid, unspecified; H40.9 Unspecified glaucoma; F31.9 Bipolar disorder, unspecified; F41.9 Anxiety disorder, unspecified; G47.33 Obstructive sleep apnea (adult) (pediatric); Z79.899 Other long term (current) drug therapy; Z79.890 Hormone replacement therapy; Z79.84 Long term (current) use of oral hypoglycemic drugs; Z79.82 Long term (current) use of aspirin; Z88.8 Allergy status to other drugs, medicaments and biological substances
CPT/HCPCS: 36415; 71045; 71275; 80048; 80076; 82550; 82553; 83690; 83880; 84439; 84443; 84484; 85025; 85610; 85730; 93005; 93041; 94760; 99285; G0480; Q9967

== ENCOUNTER → 2020-02-07 | Outpatient (REF) | payer MEDICARE, MEDICAID ==
[~2020-02-07] MED LIST changes: +AMMO12CR7; +BRIM1OPD; +GLIP10TA18; +LATU80TA; +LOSA50TA88; +NYST10CR
[2020-02-07 21:52] LABS: APPEARANCE, URINE HAZY (CLEAR); BACTERIA, URINE AUTO 1+ (NEGATIVE); BILIRUBIN, URINE AUTO NEGATIVE (NEGATIVE); BLOOD, URINE BLOOD NEGATIVE (NEGATIVE); COLOR, URINE YELLOW (YELLOW); GLUCOSE, URINE (UA) AUTO 2+ mg/dL (NEGATIVE); KETONE, URINE AUTO TRACE mg/dL (NEGATIVE); LEUKOCYTE ESTERASE, URINE AUTO 2+ (NEGATIVE); MUCUS, URINE SMALL (NEGATIVE); NITRITE, URINE AUTO NEGATIVE (NEGATIVE); PROTEIN, URINE AUTO NEGATIVE (NEGATIVE); RBC, URINE AUTO 2 /HPF (0-3); SPECIFIC GRAVITY URINE AUTO 1.014 (1.002-1.035); SQUAMOUS EPITHELIAL CELL UR AU 7 /HPF (0-6); UROBILINOGEN, URINE AUTO 0.2 mg/dL (0.0-2.0); WBC, URINE AUTO 19 /HPF (0-3)
== END ==
LOC: M LAB REF 21:38
PROVIDERS: ATTEND Physician Assistant Medical
DX: N39.0 Urinary tract infection, site not specified (principal)

== ENCOUNTER → 2020-02-25 | Outpatient (REF) | payer MEDICARE, MEDICAID ==
[2020-02-25 21:32] LABS: APPEARANCE, URINE CLEAR (CLEAR); BACTERIA, URINE AUTO 1+ (NEGATIVE); BILIRUBIN, URINE AUTO NEGATIVE (NEGATIVE); BLOOD, URINE BLOOD NEGATIVE (NEGATIVE); COLOR, URINE YELLOW (YELLOW); GLUCOSE, URINE (UA) AUTO 3+ mg/dL (NEGATIVE); KETONE, URINE AUTO TRACE mg/dL (NEGATIVE); LEUKOCYTE ESTERASE, URINE AUTO 1+ (NEGATIVE); NITRITE, URINE AUTO NEGATIVE (NEGATIVE); PROTEIN, URINE AUTO NEGATIVE (NEGATIVE); RBC, URINE AUTO 3 /HPF (0-3); SQUAMOUS EPITHELIAL CELL UR AU 2 /HPF (0-6); UROBILINOGEN, URINE AUTO 0.2 mg/dL (0.0-2.0); WBC, URINE AUTO 18 /HPF (0-3)
== END ==
LOC: M LAB REF 21:13
PROVIDERS: ATTEND Physician Assistant
DX: N39.0 Urinary tract infection, site not specified (principal)

== ENCOUNTER → 2020-03-13 | Outpatient (REF) | payer MEDICARE, MEDICAID ==
[2020-03-13 13:00] LABS: APPEARANCE, URINE CLEAR (CLEAR); BACTERIA, URINE AUTO 1+ (NEGATIVE); BILIRUBIN, URINE AUTO NEGATIVE (NEGATIVE); BLOOD, URINE BLOOD NEGATIVE (NEGATIVE); COLOR, URINE YELLOW (YELLOW); GLUCOSE, URINE (UA) AUTO 1+ mg/dL (NEGATIVE); KETONE, URINE AUTO NEGATIVE (NEGATIVE); LEUKOCYTE ESTERASE, URINE AUTO 2+ (NEGATIVE); MUCUS, URINE SMALL (NEGATIVE); NITRITE, URINE AUTO NEGATIVE (NEGATIVE); PROTEIN, URINE AUTO NEGATIVE (NEGATIVE); RBC, URINE AUTO 3 /HPF (0-3); SPECIFIC GRAVITY URINE AUTO 1.008 (1.002-1.035); SQUAMOUS EPITHELIAL CELL UR AU 1 /HPF (0-6); UROBILINOGEN, URINE AUTO 0.2 mg/dL (0.0-2.0); WBC, URINE AUTO 21 /HPF (0-3)
== END ==
LOC: M LAB REF 12:19
PROVIDERS: ATTEND Physician Assistant Medical
DX: N39.0 Urinary tract infection, site not specified (principal)

== ENCOUNTER → 2020-03-27 | Outpatient (REF) | payer MEDICARE, MEDICAID ==
[2020-03-27 18:31] LABS: APPEARANCE, URINE CLEAR (CLEAR); BACTERIA, URINE AUTO 1+ (NEGATIVE); BILIRUBIN, URINE AUTO NEGATIVE (NEGATIVE); BLOOD, URINE BLOOD 1+ (NEGATIVE); COLOR, URINE YELLOW (YELLOW); GLUCOSE, URINE (UA) AUTO 3+ mg/dL (NEGATIVE); KETONE, URINE AUTO NEGATIVE (NEGATIVE); LEUKOCYTE ESTERASE, URINE AUTO 2+ (NEGATIVE); MUCUS, URINE SMALL (NEGATIVE); NITRITE, URINE AUTO NEGATIVE (NEGATIVE); PROTEIN, URINE AUTO NEGATIVE (NEGATIVE); RBC, URINE AUTO 4 /HPF (0-3); SPECIFIC GRAVITY URINE AUTO 1.007 (1.002-1.035); SQUAMOUS EPITHELIAL CELL UR AU 2 /HPF (0-6); UROBILINOGEN, URINE AUTO 0.2 mg/dL (0.0-2.0); WBC, URINE AUTO 18 /HPF (0-3)
== END ==
LOC: M LAB REF 18:16
PROVIDERS: ATTEND Nurse Practitioner Family
DX: E03.9 Hypothyroidism, unspecified (principal); Z74.09 Other reduced mobility; F17.200 Nicotine dependence, unspecified, uncomplicated; E78.70 Disorder of bile acid and cholesterol metabolism, unspecified; E11.8 Type 2 diabetes mellitus with unspecified complications; I10 Essential (primary) hypertension; E66.09 Other obesity due to excess calories

== ENCOUNTER → 2020-06-06 | Outpatient (REF) | payer MEDICARE, MEDICAID | LOC: M SFHCWAGY 16:48 | PROVIDERS: ATTEND Nurse Practitioner Family | DX: N90.89 Other specified noninflammatory disorders of vulva and perineum (principal) ==

== ENCOUNTER → 2020-06-16 | Outpatient (REF) | payer MEDICARE, MEDICAID ==
[~2020-06-16] MED LIST changes: +ACET-897 PO; +ASPI81TA86 PO; +ATOR1TAB21 PO; +BUSP5TA PO; +CALC-333 PO; +CALC500T44 PO; +CEFD300CAP PO; +DIVA500T9 PO; +DIVA500T94 PO; +FURO20TA2 PO; +FURO40TA2 PO; +GLIP5TAB20 PO; +HYDR-643 PO; +LATU20TA PO; +LATU80TA PO; +LOSA50TA88 PO; +MOM30SS2 PO; +NYST1POW9 TOP; +SENN-52 PO; +SODI1TAB6 PO; +SYNT75TA PO; +TRAD5TAB PO; +[UNRECOGNIZED DRUG - REMARK]
== END ==
LOC: M LAB REF 10:07
PROVIDERS: ATTEND Physician Assistant Medical
DX: N39.0 Urinary tract infection, site not specified (principal)

== ENCOUNTER → 2020-07-10 | Outpatient (REF) | payer MEDICARE, MEDICAID ==
[2020-07-10 13:50] LABS: BASO # 0.1 10^3/uL (0.0-0.2); BASO % 0.8 % (0.0-1.0); EOS # 0.2 10^3/uL (0.0-0.5); EOS % 2.8 % (0.0-3.0); HEMATOCRIT 45.4 % (36.0-47.0); HEMOGLOBIN 15.3 g/dl (12.0-15.5); LYMPH # 1.7 10^3/uL (1.5-5.0); LYMPH % 26.5 % (24.0-44.0); MEAN CORPUSCULAR HEMOGLOBIN 32.3 pg (27.0-33.0); MEAN CORPUSCULAR HGB CONC 33.7 g/dl (32.0-36.5); MEAN CORPUSCULAR VOLUME 95.8 fl (80.0-96.0); MONO # 0.9 10^3/uL (0.0-0.8); MONO % 13.2 % (0.0-5.0); NEUTROPHILS # 3.7 10^3/uL (1.5-8.5); NEUTROPHILS % 56.2 % (36.0-66.0); PLATELET COUNT, AUTOMATED 328 10^3/uL (150-450); RED BLOOD COUNT 4.74 10^6/uL (4.00-5.40); WHITE BLOOD COUNT 6.5 10^3/uL (4.0-10.0)
[2020-07-10 14:09] LABS: ALBUMIN 3.3 GM/DL (3.2-5.2); ALT/SGPT 26 U/L (12-78); BILIRUBIN,TOTAL 0.4 MG/DL (0.2-1.0); BLOOD UREA NITROGEN 8 MG/DL (7-18); CALCIUM LEVEL 9.6 MG/DL (8.8-10.2); CARBON DIOXIDE LEVEL 29 MEQ/L (21-32); CHLORIDE LEVEL 95 MEQ/L (98-107); CHOLESTEROL LEVEL 158 MG/DL (<200); CHOLESTEROL RISK RATIO 3.853 (<5); CREATININE FOR GFR 0.58 MG/DL (0.55-1.30); FREE T4 1.27 NG/DL (0.76-1.46); GLOMERULAR FILTRATION RATE > 60.0 (>39); GLUCOSE, FASTING 148 MG/DL (70-100); HDL CHOLESTEROL 41 MG/DL (>40); LDL CHOLESTEROL 97 MG/DL (<100); NON-HDL-C 117 MG/DL; SODIUM LEVEL 132 MEQ/L (136-145); TOTAL 25(OH) VITAMIN D 30.3 NG/ML (30.0-100.0); TRIGLYCERIDES LEVEL 100 MG/DL (<150)
[2020-07-10 14:46] LABS: HEMOGLOBIN A1c 8.1 %
== END ==
LOC: M LAB REF 08:45
PROVIDERS: ATTEND Nurse Practitioner Family
DX: Z13.9 Encounter for screening, unspecified (principal); E03.9 Hypothyroidism, unspecified; E78.70 Disorder of bile acid and cholesterol metabolism, unspecified; E11.8 Type 2 diabetes mellitus with unspecified complications

== ENCOUNTER 2020-07-22 17:28 | Inpatient (IN) | payer MEDICARE, MEDICAID ==
[~2020-07-22] VITALS: Ht 165.1 cm; Wt 89.8 kg
[~2020-07-22 17:28] MED LIST changes: -ATOR1TAB21 PO; -BUSP5TA PO; -CALC500T44 PO; -CEFD300CAP PO; -DIVA500T9 PO; -FURO40TA2 PO; -HYDR-643 PO; -MOM30SS2 PO; -SENN-52 PO; -SODI1TAB6 PO
[2020-07-22] MEDS ORDERED: FLEET ENEMA PR ONE (19:00)
[2020-07-22] MEDS ORDERED: NS 500 ML IV ONE ×2 (19:00→23:00)
[2020-07-22 19:25] LABS: BASO % 0.4 % (0.0-1.0); EOS # 0.1 10^3/uL (0.0-0.5); EOS % 0.6 % (0.0-3.0); HEMATOCRIT 43.3 % (36.0-47.0); HEMOGLOBIN 15.2 g/dl (12.0-15.5); LYMPH # 1.7 10^3/uL (1.5-5.0); LYMPH % 15.1 % (24.0-44.0); MEAN CORPUSCULAR HEMOGLOBIN 32.1 pg (27.0-33.0); MEAN CORPUSCULAR HGB CONC 35.1 g/dl (32.0-36.5); MEAN CORPUSCULAR VOLUME 91.5 fl (80.0-96.0); MONO # 1.2 10^3/uL (0.0-0.8); MONO % 10.8 % (0.0-5.0); NEUTROPHILS % 72.6 % (36.0-66.0); PLATELET COUNT, AUTOMATED 326 10^3/uL (150-450); RED BLOOD COUNT 4.73 10^6/uL (4.00-5.40)
--- NOTE | 2020-07-22 19:53 | REPVR ---
PROCEDURE INFORMATION: Exam: XR Abdomen, 1 View Exam date and time: 07/22/2020 7:37 PM Age: 74 years old Clinical indication: Other: Abd pain with constipation R/O obstruction TECHNIQUE: Imaging protocol: XR of the abdomen. Views: Frontal supine view of the abdomen. 1 View. COMPARISON: No relevant prior studies available. FINDINGS: Gastrointestinal tract: There is a moderate amount of bubbly stool in right colon. Gas is seen throughout the large bowel. There is no evidence bowel obstruction. Bones/joints: There is moderate scoliosis of the lumbar spine convexity to the right. Soft tissues: Margin of the right hemidiaphragm not included on the film. IMPRESSION: [id number] constipation with no evidence of obstruction. Electronically signed by: Hao Brown On 07/22/2020 19:53:03 PM
[2020-07-22 19:54] LABS: ALBUMIN 3.1 GM/DL (3.2-5.2); ALT/SGPT 21 U/L (12-78); BILIRUBIN,DIRECT 0.2 MG/DL (0.0-0.2); BILIRUBIN,TOTAL 0.6 MG/DL (0.2-1.0); LIPASE 54 U/L (73-393); TOTAL PROTEIN 7.7 GM/DL (6.4-8.2)
[2020-07-22 20:14] LABS: BLOOD UREA NITROGEN 6 MG/DL (7-18); CALCIUM LEVEL 8.9 MG/DL (8.8-10.2); CARBON DIOXIDE LEVEL 28 MEQ/L (21-32); CHLORIDE LEVEL 88 MEQ/L (98-107); CREATININE FOR GFR 0.45 MG/DL (0.55-1.30); GLOMERULAR FILTRATION RATE > 60.0 (>39); GLUCOSE, FASTING 157 MG/DL (70-100); POTASSIUM SERUM 3.4 MEQ/L (3.5-5.1); SODIUM LEVEL 124 MEQ/L (136-145)
[2020-07-22] MEDS ORDERED: ISOVUE-370 76% 100ML VIAL As Ordered ONE (20:55)
[2020-07-22] MEDS: HumaLOG INSULIN (NovoLOG) PER UNIT SC SCH (21:00)
[2020-07-22] MEDS: LURASIDONE 20 MG TAB (LATUDA) PO SCH (21:00)
[2020-07-22] MEDS ORDERED: DIVALPROEX 500 MG TAB PO SCH (21:00)
[2020-07-22] MEDS ORDERED: DIVALPROEX 500MG *ER* TAB PO SCH (21:00)
[2020-07-22] MEDS: LURASIDONE HCL 40 MG TAB (LATUDA) PO SCH (21:00)
[2020-07-22] MEDS ORDERED: NYSTATIN 100,000 UNITS/GM TOPICAL PWD 15 GM TOP ONE (22:15)
--- NOTE | 2020-07-22 22:17 | REPVR ---
PROCEDURE INFORMATION: Exam: CT Abdomen And Pelvis With Contrast Exam date and time: 07/22/2020 9:28 PM Age: 74 years old Clinical indication: Abdominal pain; Generalized; Additional info: Abd pain with n/v and elevated wbc TECHNIQUE: Imaging protocol: Computed tomography of the abdomen and pelvis with intravenous contrast. Radiation optimization: All CT scans at this facility use at least one of these dose optimization techniques: automated exposure control; mA and/or kV adjustment per patient size (includes targeted exams where dose is matched to clinical indication); or iterative reconstruction. Contrast material: ISOVUE 370; Contrast volume: 100 ml; Contrast route: INTRAVENOUS (IV); COMPARISON: CR Abdomen,Flat Plate KUB 07/22/2020 6:54 PM FINDINGS: Lungs: Clear appearing lung bases. There is consolidation of stool in the rectum. Heart: The heart is normal in size and there is no pericardial effusion. Liver: There is uniform enhancement of the liver. Gallbladder and bile ducts: Normal common bile duct. There is a 1 cm nodular density at the distal end of the gallbladder. I would suggest correlation with MRI and also a follow-up CT scan in 6 months for re-evaluation and to document stability. Pancreas: Normal pancreas. Spleen: The spleen is small. Small splenic nodules identified. Adrenals: Normal adrenal glands. Kidneys and ureters: Normal. No hydronephrosis. Stomach and bowel: The cecum is in the right lower quadrant and there is no evidence of inflammation. There are multiple diverticula of the left colon and sigmoid colon but no evidence of diverticulitis. Appendix: No evidence of appendicitis. Intraperitoneal space: There is no evidence of free fluid in the abdomen or pelvis. Vasculature: There is evidence of calcification atherosclerotic change of the aorta. Lymph nodes: Unremarkable. No enlarged lymph nodes. Bladder: Normal urinary bladder. Reproductive: Normal appearing uterus. Bones/joints: There is moderate scoliosis of the thoracic spine convexity to the right. Soft tissues: Unremarkable. IMPRESSION: 1. Constipation with a fecal impaction in the rectum. 2. No evidence bowel obstruction. 3. 1 cm nodular density at the distal end of the gallbladder. Recommend correlation with an MRI. Recommend follow-up CT scan in 6 months for re-evaluation of this and to document stability. Electronically signed by: Hao Brown On 07/22/2020 22:17:21 PM
[2020-07-22] MEDS ORDERED: POTASSIUM CHLORIDE 10 MEQ SR TABLET PO ONE (23:00)
[2020-07-22] MEDS ORDERED: GLUCOSE 4GM CHEW TABLET PO PRN (23:15)
[2020-07-22] MEDS ORDERED: MOM 30ML SUSPENSION UDC PO PRN (23:15)
[2020-07-22] MEDS ORDERED: MAALOX 30 ML SUSP *UDC PO PRN (23:15)
[2020-07-22] MEDS ORDERED: DEXTROSE 50% 50 ML SYRINGE IV PRN (23:15)
[2020-07-22] MEDS ORDERED: GLUCAGON INJ 1MG VIAL SC PRN (23:15)
--- NOTE | 2020-07-22 23:18 | HPEPDOC ---
[facility] Medical History & Physical Date of Admission Jul 22, 2020 Date of Service: Jul 22, 2020 Other Provider Desiree SILVEIRA Attending Physician: JAMAICA BURROWS MD History and Physical TIME OF SERVICE: 1159pm CHIEF COMPLAINT: abdominal pain HISTORY OF PRESENT ILLNESS: This 74 yr old F presented w c/o diffuse abdominal pain and 1 week of constipation that resolved after receiving stool softeners in the ER. MITALI Armijo called me for admission because the patient was found to have hyponatremia with a Na of 124 that didnt improve despite giving the patient 500ml of NS; the patient received a total of 1L of NS. During my visit the patient mentioned that she feels weak and tired, feels short of breath, has to sleep sitting up in a recliner and feels more short of breath if she lies down flat on her back. She denies feeling like she is retaining water around her abdomen, denies having fever or chills and denies feeling dizzy or falling down. She thinks she may have a UTI bc the skin around her groin area is raw. REVIEW OF SYSTEMS: 12 point review of systems negative except as listed in HPI PAST MEDICAL/ SURGICAL HISTORY: NIDDM Chronic HTN Dyslipidemia Bipolar Disorder Hypothyroidism Ectopic SOCIAL HISTORY: +tobacco / - alcohol or drugs FAMILY HISTORY: Lung cancer and brain tumor -father ALLERGIES: Please see below. HOME MEDICATIONS: Please see below. PHYSICAL EXAM Vital Signs Date Time Temp Pulse Resp B/P (MAP) Pulse Ox O2 Delivery O2 Flow Rate FiO2 07/22/20 17:29 97.0 93 20 181/82 (115) 96 Room Air GENERAL APPEARANCE: obese/ well developed HEENT: no scleral icterus / EOMI/ neck short CARDIOVASCULAR: RRR/NMRG / +1 BLE edema LUNGS: inspiratory rhonchi ABDOMEN: distended & firm not tender w palpitation MUSCULOSKELETAL: NCAT / LIMA x 4 INTEGUMENT: no generalized pallor NEUROLOGICAL: CN -12 intact / speech not dysarthric / resting tremor affecting the right hand PSYCHIATRIC: mask like facies / A&Ox 3 /able to understand and follow all commands LABORATORY DATA: 07/22/20 19:10 Immature Granulocyte % (Auto) 0.5, Neutrophils (%) (Auto) 72.6H, Lymphocytes (%) (Auto) 15.1L, Monocytes (%) (Auto) 10.8H, Eosinophils (%) (Auto) 0.6, Basophils (%) (Auto) 0.4, Neutrophils # (Auto) 8.0, Lymphocytes # (Auto) 1.7, Monocytes # (Auto) 1.2H, Eosinophils # (Auto) 0.1, Basophils # (Auto) 0.0, Nucleated Red Blood Cells % (auto) 0.0, Anion Gap 8, Glomerular Filtration Rate > 60.0, Calcium Level 8.9, Total Bilirubin 0.6, Direct Bilirubin 0.2, Aspartate Amino Transf (AST/SGOT) 15, Alanine Aminotransferase (ALT/SGPT) 21, Alkaline Jyoti sphatase 75, Total Protein 7.7, Albumin 3.1L, Albumin/Globulin Ratio 0.7L, Lipase 54L 07/22/20 22:09: Urine Color YELLOW, Urine Appearance CLEAR, Urine pH 6.0, Urine Specific Mckean 1.026, Urine Protein NEGATIVE, Urine Glucose (UA) 3+H, Urine Ketones TRACEH, Urine Blood 2+H, Urine Nitrite NEGATIVE, Urine Bilirubin NEGATIVE, Urine Urobilinogen 0.2, Urine Leukocyte Esterase NEGATIVE, Urine WBC (Auto) 6H, Urine RBC (Auto) 6H, Urine Hyaline Casts (Auto) 0, Urine Bacteria (Auto) NEGATIVE, Urine Squamous Epithelial Cells 1, Urine Sperm (Auto) , Urine Random Osmolality 349L IMAGING: Abdominal xray IMPRESSION: [id number] constipation with no evidence of obstruction. CT abd/pelvis IMPRESSION: 1. Constipation with a fecal impaction in the rectum. 2. No evidence bowel obstruction. 3. 1 cm nodular density at the distal end of the gallbladder. Recommend correlation with an MRI. Recommend follow-up CT scan in 6 months for re-evaluation of this and to document stability. MICROBIOLOGY: Please see below. ASSESSMENT: Ms. Manuel is a 74 yr old w a hx of NIDDM, HTN, Bipolar disorder and Hypothyrodism who presented w abdominal pain 2/2 constipation which has resolved but her work up revealed moderate hyponatremia of unclear duration which she will be admitted to manage. PLAN: 1 Moderate hypotonic hypervolemic hyponatremia The duration is unclear Her only symptoms are feeling weak and tired. She received a total of 1L of NS in the ER. Serum osmol, Uosmol and Abhishek reviewed Plan: admit to medical floor /orthostats /f/u Is and Os, neurochecks q12h and serial Na / hold off additional IVF fluids, losartan and furosemide pending Nephro recs 2 Dyspnea Wells Score for PE = 0 therefore will not check d-dimer Plan: keep HOBE to 30 degrees / pending chest xray, troponin & BNP the day time team may consider ordering an Echo 3 Tremor Possibly due to, divalproex toxicity, lurasidone toxicity or undiagnosed Parkinsons Plan: f/u Valproic acid levels / if valproic acid levels are normal, the day time team may consider out pt Neurology referral +/- asking the pt to f/u w her Psychiatrist 4 NIDDM Plan: FSBS, SSI, hypoglycemia protocol, A1C / hold glipizide & linagliptin 5 Chronic HTN Plan: losartan 6 Hypothyroidism Plan: levothyroxine 6 Dyslipidemia Plan: atorvastatin 7 Bipolar Disorder Plan: divalproex, lurasidone 8 Obesity BMI 34.9 complicates care Plan: f/u w PCP for sleep apnea screening DVT px w Lovenox Dispo: home after more than 2 midnights stay Home Medications Scheduled Aspirin (Aspir 81) 81 Mg Tablet.dr, 81 MG PO DAILY Calcium Carbonate/Vitamin D3 (Calcium 500-Vit D3 200 Tablet) 1 Each Tablet, 1 TAB PO DAILY Divalproex Sodium (Divalproex Sodium) 500 Mg Tablet.dr, 2,000 MG PO QPM Furosemide (Furosemide) 20 Mg Tablet, 20 MG PO DAILY Glipizide (Glipizide ER) 5 Mg Tab.er.24, 10 MG PO DAILY Levothyroxine Sodium (Synthroid) 75 Mcg Tablet, 75 MCG PO DAILY Linagliptin (Tradjenta) 5 Mg Tablet, 5 MG PO DAILY Losartan Potassium (Losartan Potassium) 50 Mg Tablet, 50 MG PO DAILY Lovastatin (Lovastatin) 40 Mg Tablet, 40 MG PO DAILY Lurasidone HCl (Latuda) 80 Mg Tablet, 80 MG PO QHS TAKES WITH 20MG TABLET FOR TOTAL OF 100MG Lurasidone Hydrochloride (Latuda) 20 Mg Tablet, 20 MG PO QHS TAKES WITH 80MG TABLET FOR TOTAL OF 100MG Scheduled PRN Acetaminophen (Tylenol Extra Strength) 500 Mg Tablet, 1,000 MG PO TID PRN for PAIN Nystatin (Nystatin Powder) 15 Gm Powder, 1 APLCT TOP DAILY PRN for ITCHING APPLY TO PERINEAL AREA FOR ITCHING Allergies Coded Allergies: No Known Allergies (Unverified , 9/2/20) A-FIB/CHADSVASC A-FIB History Current/History of A-Fib/PAF?: No Current PO Anticoag Therapy: No JAMAICA BURROWS MD Jul 22, 2020 23:18
[2020-07-22 23:21] LABS: FREE T4 1.24 NG/DL (0.76-1.46)
[2020-07-23] MEDS ORDERED: CALC500T44 PO (00:10)
[2020-07-23 02:14] VITALS: BP 180/90
[2020-07-23] MEDS: ACETAMINOPHEN TAB 650MG DOSE (2X325MG) PO PRN (02:21)
[2020-07-23] MEDS ORDERED: DIVA500T9 PO (02:27)
[2020-07-23 03:05] LABS: HEMOGLOBIN A1c 8.1 %
[2020-07-23 03:10] LABS: NT-PRO BNP 147 PG/ML (<125); SODIUM LEVEL 125 MEQ/L (136-145); TROPONIN I < 0.02 NG/ML (< 0.10)
[2020-07-23] MEDS ORDERED: POTASSIUM CHLORIDE 10 MEQ SR TABLET PO ONE (05:30)
[2020-07-23 05:41] LABS: MAGNESIUM LEVEL 1.4 MG/DL (1.8-2.4)
[2020-07-23 06:10] VITALS: BP 183/90
[2020-07-23] MEDS: LEVOTHYROXINE 75MCG TABLET (0.075MG) PO SCH (06:37)
[2020-07-23] MEDS: ENOXAPARIN 40MG/0.4ML SYRINGE (J1650 PER 10MG) SC SCH (08:16)
[2020-07-23] MEDS: HumaLOG INSULIN (NovoLOG) PER UNIT SC SCH ×4 (08:17→21:00)
[2020-07-23] MEDS: ATORVASTATIN 20 MG TAB PO SCH (08:17)
[2020-07-23] MEDS: ASPIRIN 81 MG ENTERIC TAB PO SCH (08:17)
[2020-07-23] MEDS ORDERED: FLUBLOK(EGG FREE)(QUAD)INFLUENZA VACC 0.5ML SYRINGE 18YRS & OLDER IM ONE (09:00)
[2020-07-23 10:00] VITALS: BP 148/90
[2020-07-23] MEDS ORDERED: traMADol 50 MG TAB PO PRN (10:15)
[2020-07-23] MEDS ORDERED: cloNIDine 0.05MG PER 1/2 TABLET PO PRN (10:45)
[2020-07-23] MEDS: hydrOXYzine 10 MG TAB PO PRN ×2 (11:44→21:52)
[2020-07-23] MEDS ORDERED: FUROSEMIDE 40 MG TAB PO ONE (12:00)
[2020-07-23 12:05] LABS: ALBUMIN 2.8 GM/DL (3.2-5.2); BLOOD UREA NITROGEN 6 MG/DL (7-18); CALCIUM LEVEL 8.7 MG/DL (8.8-10.2); CARBON DIOXIDE LEVEL 27 MEQ/L (21-32); CHLORIDE LEVEL 91 MEQ/L (98-107); CREATININE FOR GFR 0.42 MG/DL (0.55-1.30); GLOMERULAR FILTRATION RATE > 60.0 (>39); GLUCOSE, FASTING 157 MG/DL (70-100); PHOSPHORUS LEVEL 3.3 MG/DL (2.5-4.9); POTASSIUM SERUM 3.7 MEQ/L (3.5-5.1); SODIUM LEVEL 126 MEQ/L (136-145); URIC ACID 1.8 MG/DL (2.6-6.0)
[2020-07-23 14:00] VITALS: BP 152/90
[2020-07-23] MEDS: FUROSEMIDE 40 MG TAB PO SCH (16:29)
[2020-07-23] MEDS: SODIUM CHLORIDE 1 GM TAB PO SCH ×2 (16:29→21:52)
[2020-07-23] MEDS: SENOKOT S TAB PO SCH (21:52)
[2020-07-23] MEDS: LURASIDONE 20 MG TAB (LATUDA) PO SCH (21:53)
[2020-07-23] MEDS: DIVALPROEX 500MG *ER* TAB PO SCH (21:53)
[2020-07-23] MEDS: LURASIDONE HCL 40 MG TAB (LATUDA) PO SCH (21:53)
[2020-07-23] MEDS: POTASSIUM CHLORIDE 10 MEQ SR TABLET PO SCH (21:53)
[2020-07-23 22:00] VITALS: BP 174/99
[2020-07-24] MEDS: ACETAMINOPHEN TAB 650MG DOSE (2X325MG) PO PRN ×4 (01:27→20:31)
[2020-07-24] MEDS: NYSTATIN 100,000 UNITS/GM TOPICAL PWD 15 GM TOP PRN ×2 (04:58→15:03)
[2020-07-24] MEDS: LEVOTHYROXINE 75MCG TABLET (0.075MG) PO SCH (05:35)
[2020-07-24 06:00] VITALS: BP 163/93
[2020-07-24 06:02] LABS: ALBUMIN 2.7 GM/DL (3.2-5.2); BLOOD UREA NITROGEN 8 MG/DL (7-18); CALCIUM LEVEL 8.7 MG/DL (8.8-10.2); CARBON DIOXIDE LEVEL 28 MEQ/L (21-32); CHLORIDE LEVEL 93 MEQ/L (98-107); CREATININE FOR GFR 0.46 MG/DL (0.55-1.30); GLOMERULAR FILTRATION RATE > 60.0 (>39); GLUCOSE, FASTING 149 MG/DL (70-100); PHOSPHORUS LEVEL 3.3 MG/DL (2.5-4.9); POTASSIUM SERUM 3.2 MEQ/L (3.5-5.1); SODIUM LEVEL 130 MEQ/L (136-145)
[2020-07-24 06:50] LABS: BASO # 0.1 10^3/uL (0.0-0.2); BASO % 0.5 % (0.0-1.0); EOS % 0.4 % (0.0-3.0); HEMATOCRIT 40.2 % (36.0-47.0); LYMPH # 1.2 10^3/uL (1.5-5.0); LYMPH % 10.6 % (24.0-44.0); MEAN CORPUSCULAR HEMOGLOBIN 32.3 pg (27.0-33.0); MEAN CORPUSCULAR HGB CONC 34.8 g/dl (32.0-36.5); MEAN CORPUSCULAR VOLUME 92.8 fl (80.0-96.0); MONO # 1.5 10^3/uL (0.0-0.8); MONO % 13.8 % (0.0-5.0); NEUTROPHILS # 8.1 10^3/uL (1.5-8.5); NEUTROPHILS % 74.2 % (36.0-66.0); PLATELET COUNT, AUTOMATED 325 10^3/uL (150-450); RED BLOOD COUNT 4.33 10^6/uL (4.00-5.40); WHITE BLOOD COUNT 10.9 10^3/uL (4.0-10.0)
[2020-07-24] MEDS ORDERED: POTASSIUM CHLORIDE 10 MEQ SR TABLET PO ONE (09:30)
[2020-07-24] MEDS: hydrOXYzine 10 MG TAB PO PRN ×2 (09:36→20:30)
[2020-07-24] MEDS: HumaLOG INSULIN (NovoLOG) PER UNIT SC SCH ×4 (09:36→20:32)
[2020-07-24] MEDS: SODIUM CHLORIDE 1 GM TAB PO SCH ×3 (09:36→20:31)
[2020-07-24] MEDS: ASPIRIN 81 MG ENTERIC TAB PO SCH (09:36)
[2020-07-24] MEDS: ATORVASTATIN 20 MG TAB PO SCH (09:37)
[2020-07-24] MEDS: POTASSIUM CHLORIDE 10 MEQ SR TABLET PO SCH ×2 (09:37→20:30)
[2020-07-24] MEDS: ENOXAPARIN 40MG/0.4ML SYRINGE (J1650 PER 10MG) SC SCH (09:37)
--- NOTE | 2020-07-24 09:40 | CR ---
NEPHROLOGY CONSULTATION DATE OF CONSULT: 07/23/2020. CONSULTATION REQUESTED BY: Elke Segovia M.D. REASON FOR CONSULTATION: Hyponatremia. HISTORY OF PRESENT ILLNESS: Mrs. Manuel is a 74-year-old female who was admitted to [facility] last evening with abdominal pain and generalized weakness. She was found to have hyponatremia with sodium level 124. She was given normal saline fluid bolus about 1 liter in the Emergency Room, that did not effect her sodium level significantly. Nephrology consultation was requested and patient was seen this morning. PAST MEDICAL/SURGICAL HISTORY: Significant for: 1. Longstanding type 2 diabetes. 2. Hypertension. 3. Dyslipidemia. 4. Bipolar disorder. 5. Hypothyroidism. 6. History of schizophrenia. FAMILY HISTORY: Negative for kidney problems. There is history of lung cancer and brain tumor in her father. PERSONAL AND SOCIAL HISTORY: Patient is a smoker and denies any alcohol or drug use. MEDICATIONS: Her home medications included: 1. Aspirin 81 mg daily. 2. Calcium with Vitamin D 500 mg daily. 3. Furosemide 20 mg daily. 4. Glipizide 5 mg daily. 5. Levothyroxine 75 mcg daily. 6. Tradjenta 5 mg daily. 7. Losartan 50 mg daily. 8. Lovastatin 40 mg daily. 9. Latuda 100 mg daily. 10. Tylenol as needed for pain. ALLERGIES: He has No known drug allergies. REVIEW OF SYSTEMS: Patient is very anxious and wants to go home. She denies any fever or chills. Ears, nose and throat are unremarkable. Cardiovascular system negative for dyspnea, chest pain or leg edema. Respiratory system is negative for cough or hemoptysis. GI system is significant for constipation. She reports no bowel movement for about a week. She denies any vomiting. system is negative for dysuria or hematuria. Endocrine system is significant for type 2 diabetes, hypothyroidism and dyslipidemia. Psychosocial system is significant for bipolar disorder. She is very anxious at present. Neurological system is negative for seizures or stroke. Skin is negative for rash or ulcers. Hematological system is negative for termite inspector anticoagulation or excessive bleeding. Musculoskeletal system is negative for leg edema or arthritis. PHYSICAL EXAMINATION: Temperature 98.5 degrees Fahrenheit, heart rate 82 per minute, respiratory rate 20 per minute, blood pressure 148/90 mmHg and oxygen saturation 98% on room air. Head is atraumatic. Pupils equal and reactive to light, and sclerae is anicteric. Ears, nose and throat are unremarkable. Neck is supple and without JVD or thyroid enlargement. Trachea is midline. Heart sounds are regular and without a gallop or murmur. Lungs sound clear to auscultation bilaterally. Abdomen is protuberant, but non-distended or tender. Bowel sounds are present. There is no palpable organomegaly. Extremities have no cyanosis or clubbing. Neurologically, she is grossly intact. Skin has no rash or ulcers. LABORATORY DATA: On admission, sodium 124, potassium 3.4, BUN 6, creatinine 0.45. Serum osmolality 259. Hemoglobin A1C 8.1. Total protein 7.7. Albumin 3.1. TSH level 4.0 and free T4 1.24. Urinalysis showed 3+ glucose, 2+ blood, 6 wbc and 6 rbc. Urine osmolality 349, urine sodium 32 and urine creatinine 30. PROBLEMS: 1. Hyponatremia: Patient was taking low dose diuretic at home, however, does not clinically look dehydrated. She received about a liter of normal saline in the Emergency Room without any significant change in her serum sodium level. At present, I feel that she has inappropriate ADH due to her GI symptoms. I would check her serum uric acid level. Her urine sodium was slightly high and urine osmolality was also slightly higher last night. Will start with oral sodium chloride tablets 1 gram t.i.d. I will give her one dose of Furosemide 40 mg now and then twice a day in order to diurese her, and see if her sodium level improves. Electrolytes will be checked again tomorrow morning. 2. Hypokalemia: Most likely related to chronic diuretic use and poor oral intake. She did receive some potassium supplement. I am going to give her further potassium 20 mEq b.i.d. in view of use of further diuretic. Her electrolytes and renal profile will be checked again tomorrow morning. 3. Constipation: She reports no bowel movement for several days. Her abdomen is somewhat bloated. She did receive some bowel care, however, still no significant bowel movement. I am going to give her Senokot two tablets at bedtime. Thank you for involving me in the care of Mrs. Manuel. I will follow her along with you. DARRYN
[2020-07-24] MEDS ORDERED: MAG SULF 1GM/100ML (MAG RUN) 1 GM in IV 1 EA IV ONE (09:45)
[2020-07-24 14:00] VITALS: BP 158/95
[2020-07-24] MEDS: busPIRone 5 MG TAB PO SCH ×2 (14:54→20:30)
[2020-07-24] MEDS ORDERED: FLUCONAZOLE 50MG TABLET PO ONE (16:00)
[2020-07-24] MEDS: FUROSEMIDE 40 MG TAB PO SCH (17:26)
--- NOTE | 2020-07-24 19:24 | IPNPDOC ---
Text Note Date of Service The patient was seen on 07/24/20. NOTE SUBJECTIVE: She continues to have significant anxiety about pretty much any subject that is brought up. She reports that she did have a bowel movement last night, but her abdomen is still pretty distended, so I'll repeat a KUB today just to check. Otherwise, she doen't have any other complaints at this time. She is eating well. Remainder of ROS is negative. OBJECTIVE: GENERAL APPEARANCE: obese/ well developed HEENT: no scleral icterus / EOMI/ CARDIOVASCULAR: RRR/NMRG / Trace BLE edema LUNGS: CTAB today ABDOMEN: distended & firm not tender w palpitation INTEGUMENT: no rash on exposed skin NEUROLOGICAL: CN -12 intact / speech not dysarthric / resting tremor affecting predominantly the right hand PSYCHIATRIC: A&Ox 3 /able to understand and follow all commands ASSESSMENT/PLAN Hyponatremia - Nephrology has been consulted and their input is greatly appreciated. Lian escobedo per their recommendations. Constipation - Abdominal pain improved, but no recorded BM, she says she went last night - KUB ordered - Continue with Milk of magnesia, Senokot S, Mylanta Anxiety -Continue with home Bipolar meds as listed below - Stop PRN Clonidine - Start Buspar 5mg TID Dyspnea - Resolved Tremor - Valproic acid within acceptable limits, seems less pronounced now NIDDM - FSBS, SSI, hypoglycemia protocol, A1C / hold glipizide & linagliptin Chronic HTN - Losartan had not been continued on admission, her BP still running hig, I have restarted her home dose Losartan now. Hypothyroidism - Home dose levothyroxine Dyslipidemia - home dose atorvastatin Bipolar Disorder - home dose divalproex, lurasidone Obesity BMI 34.9 - complicates care - f/u w PCP for sleep apnea screening DVT px - Lovenox VS,Fishbone, I+O VS, Fishbone, I+O Laboratory Tests 07/24/20 05:26 07/24/20 06:20 Vital Signs Date Time Temp Pulse Resp B/P (MAP) Pulse Ox O2 Delivery O2 Flow Rate FiO2 07/24/20 14:00 99.0 90 19 158/95 (116) 95 Room Air 07/24/20 01:29 0.5 I&O- Last 24 Hours up to 6 AM 07/24/20 06:00 Intake Total 2950 ml Output Total 925 ml Balance 5 ml DELMAR BERTRAND DO Jul 24, 2020 19:24
[2020-07-24] MEDS: SENOKOT S TAB PO SCH (20:29)
[2020-07-24] MEDS: LURASIDONE HCL 40 MG TAB (LATUDA) PO SCH (20:30)
[2020-07-24] MEDS: DIVALPROEX 500MG *ER* TAB PO SCH (20:30)
[2020-07-24] MEDS: LURASIDONE 20 MG TAB (LATUDA) PO SCH (20:31)
[2020-07-24] MEDS: NYSTATIN 100,000 UNITS/GM TOPICAL PWD 15 GM TOP SCH (20:32)
[2020-07-24 22:00] VITALS: BP 159/87
[2020-07-25] MEDS: LEVOTHYROXINE 75MCG TABLET (0.075MG) PO SCH (05:16)
[2020-07-25] MEDS: ACETAMINOPHEN TAB 650MG DOSE (2X325MG) PO PRN ×3 (05:17→15:35)
[2020-07-25 05:49] LABS: ALBUMIN 2.8 GM/DL (3.2-5.2); BLOOD UREA NITROGEN 11 MG/DL (7-18); CALCIUM LEVEL 8.9 MG/DL (8.8-10.2); CARBON DIOXIDE LEVEL 29 MEQ/L (21-32); CHLORIDE LEVEL 97 MEQ/L (98-107); CREATININE FOR GFR 0.52 MG/DL (0.55-1.30); GLOMERULAR FILTRATION RATE > 60.0 (>39); GLUCOSE, FASTING 145 MG/DL (70-100); POTASSIUM SERUM 3.9 MEQ/L (3.5-5.1); SODIUM LEVEL 130 MEQ/L (136-145)
[2020-07-25 06:00] VITALS: BP 128/71
[2020-07-25] MEDS: SODIUM CHLORIDE 1 GM TAB PO SCH ×3 (09:37→21:15)
[2020-07-25] MEDS: POTASSIUM CHLORIDE 10 MEQ SR TABLET PO SCH ×2 (09:37→21:16)
[2020-07-25] MEDS: ASPIRIN 81 MG ENTERIC TAB PO SCH (09:38)
[2020-07-25] MEDS: HumaLOG INSULIN (NovoLOG) PER UNIT SC SCH ×4 (09:38→21:00)
[2020-07-25] MEDS: ATORVASTATIN 20 MG TAB PO SCH (09:38)
[2020-07-25] MEDS: FUROSEMIDE 40 MG TAB PO SCH ×2 (09:38→17:27)
[2020-07-25] MEDS: busPIRone 5 MG TAB PO SCH ×3 (09:38→21:15)
[2020-07-25] MEDS: NYSTATIN 100,000 UNITS/GM TOPICAL PWD 15 GM TOP SCH ×2 (09:39→21:14)
[2020-07-25] MEDS: ENOXAPARIN 40MG/0.4ML SYRINGE (J1650 PER 10MG) SC SCH (09:39)
[2020-07-25] MEDS: LOSARTAN 50MG TABLET PO SCH (09:41)
[2020-07-25 14:00] VITALS: BP 134/71
--- NOTE | 2020-07-25 14:09 | IPN ---
DATE: 07/24/2020 SUBJECTIVE: Ms. Manuel is seen this morning at her bedside. She is very anxious and uncomfortable in the bed. The nursing staff reports that she has been very anxious all morning. The patient denies any headache, dyspnea or chest pain. PHYSICAL EXAMINATION: VITAL SIGNS: Temperature 98.8 degrees Fahrenheit, heart rate 98 per minute and respiratory rate 18 per minute, blood pressure 163/93 mmHg, and oxygen saturation is 92% on room air. HEAD: Atraumatic. NECK: Supple without JVD or thyroid enlargement. HEART: Tachycardic. LUNGS: Clear to auscultation. ABDOMEN: Protuberant and nontender. Bowel sounds are normal. EXTREMITIES: Without any cyanosis or clubbing. LABORATORY DATA: Todays labs showed a sodium up to 130, potassium 3.2, BUN 8 and creatinine 0.46, glucose 149, calcium 8.7. Her magnesium level was 1.4 yesterday. PROBLEMS: 1. Hyponatremia, sodium level improved from 126 yesterday up to 130 this morning. She is receiving oral sodium chloride tablets and furosemide. We held the dose of furosemide this morning due to hypokalemia. 2. Hypokalemia, this is related to diuretic use. She has received two doses of Lasix yesterday. I am going to hold her Lasix today and replace her potassium with oral supplement. 3. Hypomagnesemia. Patient will be given one dose of magnesium sulfate 1 gram intravenously today. MTDD
--- NOTE | 2020-07-25 14:14 | IPNPDOC ---
Text Note Date of Service The patient was seen on 07/25/20. NOTE Subjective: Patient is a 74 year old female with a PMHx of HTN, DLP, NIDDM2, Hypothyroidism, Bipolar disorder, who presented to the ER with abdominal pain / constipation. Patient was admitted to the hospitalist service after she was noted to have hyponatremia (124). Nephrology was called on consultation. Patient was seen and examined at the bedside. Currently patient reports that they feel better. They deny any CP, SOB or palpitations. Deny abdominal pain, they deny a bowel movement, however there has been a moderate sized BM yesterday. Patient denies any urinary discomfort. Objective: Vitals (See below) General: Lying in bed, no acute distress, comfortable, AAOx3 HEENT: NC, AT CVS: RRR, +S1S2 Lungs: Fair air entry b/l, -w/r/r Abdomen: Soft, ND, mild distention Extremities: No appreciable edema, - Calf tenderness Assessment and plan: Hyponatremia - Continues to improve - Fluid restriction ordered - c/w Lasix and Salt tabs; as per nephrology - Nephrology on consultation; appreciate their input Constipation - Abdominal pain improved - s/p BM on 07/24 - c/w Milk of magnesia, Senokot S, Mylanta Anxiety - c/w Buspar 5mg TID and Hydroxyzine PRN s/p Dyspnea Tremor - Improved - Valproic acid within acceptable limits NIDDM - c/w ISS Chronic HTN - BP better controlled - c/w Losartan and Furosemide Hypothyroidism - c/w levothyroxine DLP - c/w atorvastatin Bipolar Disorder - c/w Divalproex, lurasidone Obesity - BMI of 34.9 - Complicating medical care - f/u w PCP for sleep apnea screening DVT prophylaxis - c/w Lovenox Disposition: - Sodium continues to improve - c/w Bowel regimen as ordered VS,Fishbone, I+O VS, Fishbone, I+O Laboratory Tests 07/25/20 05:04 Vital Signs Date Time Temp Pulse Resp B/P (MAP) Pulse Ox O2 Delivery O2 Flow Rate FiO2 07/25/20 09:41 133/70 07/25/20 06:00 98.9 101 17 94 Room Air 07/24/20 01:29 0.5 I&O- Last 24 Hours up to 6 AM0 07/25/20 06:00 Intake Total 2380 ml Output Total 100 ml Balance 2280 ml TESHA PLASCENCIA MD Jul 25, 2020 14:14
[2020-07-25 17:21] VITALS: BP 130/70
[2020-07-25] MEDS: DIVALPROEX 500MG *ER* TAB PO SCH (21:15)
[2020-07-25] MEDS: LURASIDONE HCL 40 MG TAB (LATUDA) PO SCH (21:15)
[2020-07-25] MEDS: LURASIDONE 20 MG TAB (LATUDA) PO SCH (21:15)
[2020-07-25] MEDS: hydrOXYzine 10 MG TAB PO PRN (21:15)
[2020-07-25] MEDS: SENOKOT S TAB PO SCH (21:16)
[2020-07-25 22:00] VITALS: BP 146/76
[2020-07-26] MEDS: ACETAMINOPHEN TAB 650MG DOSE (2X325MG) PO PRN ×2 (05:31→21:59)
[2020-07-26] MEDS: LEVOTHYROXINE 75MCG TABLET (0.075MG) PO SCH (05:31)
[2020-07-26 06:00] VITALS: BP 149/85
[2020-07-26 07:29] LABS: ALBUMIN 2.8 GM/DL (3.2-5.2); BLOOD UREA NITROGEN 9 MG/DL (7-18); CALCIUM LEVEL 9.2 MG/DL (8.8-10.2); CARBON DIOXIDE LEVEL 29 MEQ/L (21-32); CHLORIDE LEVEL 96 MEQ/L (98-107); CREATININE FOR GFR 0.45 MG/DL (0.55-1.30); GLOMERULAR FILTRATION RATE > 60.0 (>39); GLUCOSE, FASTING 157 MG/DL (70-100); PHOSPHORUS LEVEL 3.6 MG/DL (2.5-4.9); POTASSIUM SERUM 4.1 MEQ/L (3.5-5.1); SODIUM LEVEL 131 MEQ/L (136-145)
[2020-07-26 07:31] LABS: HEMATOCRIT 42.3 % (36.0-47.0); HEMOGLOBIN 14.3 g/dl (12.0-15.5); MEAN CORPUSCULAR HEMOGLOBIN 32.1 pg (27.0-33.0); MEAN CORPUSCULAR HGB CONC 33.8 g/dl (32.0-36.5); MEAN CORPUSCULAR VOLUME 95.1 fl (80.0-96.0); PLATELET COUNT, AUTOMATED 366 10^3/uL (150-450); RED BLOOD COUNT 4.45 10^6/uL (4.00-5.40); WHITE BLOOD COUNT 12.5 10^3/uL (4.0-10.0)
[2020-07-26] MEDS: HumaLOG INSULIN (NovoLOG) PER UNIT SC SCH ×4 (08:23→21:00)
[2020-07-26] MEDS: ENOXAPARIN 40MG/0.4ML SYRINGE (J1650 PER 10MG) SC SCH (08:23)
[2020-07-26] MEDS: NYSTATIN 100,000 UNITS/GM TOPICAL PWD 15 GM TOP SCH ×2 (08:24→21:29)
[2020-07-26] MEDS: ASPIRIN 81 MG ENTERIC TAB PO SCH (08:24)
[2020-07-26] MEDS: FUROSEMIDE 40 MG TAB PO SCH ×2 (08:24→17:01)
[2020-07-26] MEDS: POTASSIUM CHLORIDE 10 MEQ SR TABLET PO SCH ×2 (08:25→21:28)
[2020-07-26] MEDS: LOSARTAN 50MG TABLET PO SCH (08:25)
[2020-07-26] MEDS: SODIUM CHLORIDE 1 GM TAB PO SCH ×3 (08:25→21:27)
[2020-07-26] MEDS: busPIRone 5 MG TAB PO SCH ×3 (08:26→21:27)
[2020-07-26] MEDS: ATORVASTATIN 20 MG TAB PO SCH (08:26)
[2020-07-26] MEDS: CEFDINIR 300 MG CAP (OMNICEF) PO SCH ×2 (08:26→21:27)
[2020-07-26] MEDS ORDERED: LACTULOSE 20 GM/30 ML SYRUP UD PO PRN (08:30)
--- NOTE | 2020-07-26 08:36 | IPNPDOC ---
Text Note Date of Service The patient was seen on 07/26/20. NOTE Subjective: Patient is a 74 year old female with a PMHx of HTN, DLP, NIDDM2, Hypothyroidism, Bipolar disorder, who presented to the ER with abdominal pain / constipation. Patient was admitted to the hospitalist service after she was noted to have hyponatremia (124). Nephrology was called on consultation. Patient was seen and examined at the bedside. Patient reports that they they are having some back pain. They deny any nausea, vomiting, abdominal pain, or urinary discomfort. They report a single bowel movement only. Objective: Vitals (See below) General: Lying in bed, no acute distress, comfortable, AAOx3 HEENT: NC, AT CVS: RRR, +S1S2 Lungs: Fair air entry b/l, no appreciable wheezing / rhonchi / rales Abdomen: Soft, non-tender but has mild distention Extremities: LE are without edema, - Calf tenderness Assessment and plan: Hyponatremia - likely 2/2 SIADH - Sodium continues to improve slowly - Fluid restriction ordered - c/w Lasix and Salt tabs; as per nephrology - Nephrology on consultation; appreciate their input Constipation - No complaints of nausea / vomiting; continues to pass gas - Abdominal pain improved - XR abdomen 07/22: [id number] constipation with no evidence of obstruction. - CT abdomen / pelvis 07/22: 1. Constipation with a fecal impaction in the rectum. 2. No evidence bowel obstruction. 3. 1 cm nodular density at the distal end of the gallbladder. Recommend correlation with an MRI. Recommend follow-up CT scan in 6 months for re-evaluation of this and to document stability. - XR abdomen 07/24: Marked fecal stasis and ileus. C/W constipation - s/p BM on 07/24 - c/w Milk of magnesia, Senokot S, Mylanta - Will add lactulose to induce further bowel movements Anxiety - c/w Buspar 5mg TID and Hydroxyzine PRN s/p Dyspnea Tremor - Improved - Valproic acid within acceptable limits NIDDM - c/w ISS Chronic HTN - BP better controlled - c/w Losartan and Furosemide Hypothyroidism - c/w levothyroxine DLP - c/w atorvastatin Bipolar Disorder - c/w Divalproex, lurasidone Obesity - BMI of 34.9 - Complicating medical care - f/u w PCP for sleep apnea screening DVT prophylaxis - c/w Lovenox Disposition: - Sodium continues to improve - Will adjust bowel regimen - Awaiting PT clearance VS,Remberto, I+O VS, Angele, I+O Laboratory Tests 07/26/20 06:22 07/26/20 06:26 Vital Signs Date Time Temp Pulse Resp B/P (MAP) Pulse Ox O2 Delivery O2 Flow Rate FiO2 07/26/20 08:25 149/85 07/26/20 06:00 97.0 93 91 18 Room Air 07/24/20 01:29 0.5 I&O- Last 24 Hours up to 6 AM 07/26/20 06:00 Intake Total 550 ml Output Total 430 ml Balance 120 ml TESHA PLASCENCIA MD Jul 26, 2020 08:36
[2020-07-26] MEDS ORDERED: BISACODYL 10 MG SUPP PR ONE (08:45)
[2020-07-26 14:00] VITALS: BP 137/64
[2020-07-26] MEDS: LURASIDONE HCL 40 MG TAB (LATUDA) PO SCH (21:26)
[2020-07-26] MEDS: LURASIDONE 20 MG TAB (LATUDA) PO SCH (21:27)
[2020-07-26] MEDS: SENOKOT S TAB PO SCH (21:27)
[2020-07-26] MEDS: DIVALPROEX 500MG *ER* TAB PO SCH (21:28)
[2020-07-26 22:00] VITALS: BP 124/87
[2020-07-27] MEDS: ACETAMINOPHEN TAB 650MG DOSE (2X325MG) PO PRN ×2 (04:24→21:59)
[2020-07-27] MEDS: LEVOTHYROXINE 75MCG TABLET (0.075MG) PO SCH (05:58)
[2020-07-27 06:00] VITALS: BP 162/73
[2020-07-27 07:09] LABS: ALBUMIN 2.5 GM/DL (3.2-5.2); BLOOD UREA NITROGEN 16 MG/DL (7-18); CALCIUM LEVEL 9.2 MG/DL (8.8-10.2); CARBON DIOXIDE LEVEL 28 MEQ/L (21-32); CHLORIDE LEVEL 98 MEQ/L (98-107); CREATININE FOR GFR 0.56 MG/DL (0.55-1.30); GLOMERULAR FILTRATION RATE > 60.0 (>39); GLUCOSE, FASTING 149 MG/DL (70-100); PHOSPHORUS LEVEL 3.9 MG/DL (2.5-4.9); POTASSIUM SERUM 3.8 MEQ/L (3.5-5.1); SODIUM LEVEL 132 MEQ/L (136-145)
[2020-07-27] MEDS: HumaLOG INSULIN (NovoLOG) PER UNIT SC SCH ×4 (08:18→21:00)
[2020-07-27] MEDS: NYSTATIN 100,000 UNITS/GM TOPICAL PWD 15 GM TOP SCH ×2 (08:19→21:15)
[2020-07-27] MEDS: ENOXAPARIN 40MG/0.4ML SYRINGE (J1650 PER 10MG) SC SCH (08:19)
[2020-07-27] MEDS: busPIRone 5 MG TAB PO SCH ×3 (08:20→21:15)
[2020-07-27] MEDS: ASPIRIN 81 MG ENTERIC TAB PO SCH (08:20)
[2020-07-27] MEDS: POTASSIUM CHLORIDE 10 MEQ SR TABLET PO SCH (08:20)
[2020-07-27] MEDS: ATORVASTATIN 20 MG TAB PO SCH (08:20)
[2020-07-27] MEDS: CEFDINIR 300 MG CAP (OMNICEF) PO SCH ×2 (08:21→21:16)
[2020-07-27] MEDS: FUROSEMIDE 40 MG TAB PO SCH (08:21)
[2020-07-27] MEDS: LOSARTAN 50MG TABLET PO SCH (08:21)
[2020-07-27] MEDS: SODIUM CHLORIDE 1 GM TAB PO SCH ×3 (08:21→21:16)
[2020-07-27 08:33] LABS: BASO % 0.5 % (0.0-1.0); EOS # 0.1 10^3/uL (0.0-0.5); EOS % 1.2 % (0.0-3.0); HEMATOCRIT 41.6 % (36.0-47.0); LYMPH # 0.9 10^3/uL (1.5-5.0); LYMPH % 9.7 % (24.0-44.0); MEAN CORPUSCULAR HEMOGLOBIN 32.3 pg (27.0-33.0); MEAN CORPUSCULAR HGB CONC 33.7 g/dl (32.0-36.5); MEAN CORPUSCULAR VOLUME 96.1 fl (80.0-96.0); MONO # 1.3 10^3/uL (0.0-0.8); MONO % 14.2 % (0.0-5.0); NEUTROPHILS # 6.5 10^3/uL (1.5-8.5); NEUTROPHILS % 73.8 % (36.0-66.0); PLATELET COUNT, AUTOMATED 340 10^3/uL (150-450); RED BLOOD COUNT 4.33 10^6/uL (4.00-5.40); WHITE BLOOD COUNT 8.8 10^3/uL (4.0-10.0)
--- NOTE | 2020-07-27 10:01 | IPN ---
DATE: 07/25/2020 SUBJECTIVE: Ms. Manuel is seen this morning on her bedside. She remains very anxious and reports not feeling well. No dyspnea, chest pain, nausea or vomiting reported. PHYSICAL EXAMINATION: Temperature 98.9 degrees Fahrenheit, heart rate 100 per minute, respiratory rate 17 per minute, blood pressure 128/70 mmHg and oxygen saturation 94% on room air. Head is atraumatic. Neck is supple, JVD not abnormally elevated. Heart sounds are tachycardic and lungs clear to auscultation. Abdomen is soft, nontender and bowel sounds are present. Extremities without any cyanosis or clubbing. Neurologically, she is at her baseline mentation without a focal deficit. LABORATORY DATA: Todays labs: Sodium 130, potassium 3.9, CO2 29, BUN 11, creatinine 0.52, glucose 145, calcium 8.9 and phosphorus 4.0. PROBLEMS: 1. Hyponatremia: Sodium level is stable. I feel that she probably has chronic mild hyponatremia. At this point, we will continue with oral sodium chloride tablets and Furosemide 40 mg p.o. b.i.d. Electrolytes will be checked again tomorrow. 2. Hypokalemia: Her potassium level has improved and corrected. She is received oral potassium chloride supplement. 3. Anxiety and depression: This is a chronic issue and she remains on her chronic medications. DARRYN
[2020-07-27] MEDS ORDERED: ATOR1TAB21 PO (10:05)
[2020-07-27] MEDS ORDERED: HYDR-643 PO (10:05)
[2020-07-27] MEDS ORDERED: CEFD300CAP PO (10:05)
[2020-07-27] MEDS ORDERED: BUSP5TA PO (10:05)
[2020-07-27] MEDS ORDERED: SODI1TAB6 PO (10:05)
[2020-07-27] MEDS ORDERED: FURO40TA2 PO (10:05)
[2020-07-27] MEDS ORDERED: SENN-52 PO (10:05)
[2020-07-27] MEDS ORDERED: MOM30SS2 PO (10:05)
[2020-07-27 14:00] VITALS: BP 122/48
--- NOTE | 2020-07-27 14:35 | DS.PDOC ---
Discharge Summary General Date of Admission Jul 22, 2020 at 23:12 Date of Discharge 07/28/2020 Discharge Summary ADDENDUM START Patient remained in hospital for an additional day after failure to establish transportation. 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 ADMITTING DIAGNOSES / DISCHARGE DIAGNOSES: Hyponatremia - likely 2/2 SIADH UTI Constipation Anxiety s/p Dyspnea Tremor NIDDM Chronic HTN Hypothyroidism DLP Bipolar Disorder Obesity DVT prophylaxis COMPLICATIONS/CHIEF COMPLAINT: Hyponatremia. HISTORY OF PRESENT ILLNESS: Patient is a 74 year old female with a PMHx of HTN, DLP, NIDDM2, Hypothyroidism, Bipolar disorder, who presented to the ER with abdominal pain / constipation. Patient was admitted to the hospitalist service after she was noted to have hyponatremia (124). Nephrology was called on consultation. HOSPITAL COURSE: Hyponatremia - likely 2/2 SIADH - Sodium continues to improve slowly - Fluid restriction ordered - c/w Lasix and Salt tabs; as per nephrology - Nephrology on consultation; discussed case, will have outpatient follow up for labs UTI - Urine culture (07/24): E. coli - c/w Cefdinir (Day #2); will continue course of antibiotics as outpatient - Will have outpatient follow up with PCP Constipation - No complaints of nausea / vomiting; continues to pass gas - Abdominal pain improved - XR abdomen 07/22: [id number] constipation with no evidence of obstruction. - CT abdomen / pelvis 07/22: 1. Constipation with a fecal impaction in the rectum. 2. No evidence bowel obstruction. 3. 1 cm nodular density at the distal end of the gallbladder. Recommend correlation with an MRI. Recommend follow-up CT scan in 6 months for re-evaluation of this and to document stability. - XR abdomen 07/24: Marked fecal stasis and ileus. C/W constipation - s/p BM on 07/24 - c/w Milk of magnesia, Senokot S, Mylanta - Will provide bowel regimen on discharge Anxiety - c/w Buspirone 5mg TID and Hydroxyzine PRN s/p Dyspnea Tremor - Improved - Valproic acid within acceptable limits NIDDM - c/w ISS Chronic HTN - BP better controlled - c/w Losartan and Furosemide Hypothyroidism - c/w levothyroxine DLP - c/w atorvastatin Bipolar Disorder - c/w Divalproex, lurasidone Obesity - BMI of 34.9 - Complicating medical care - f/u w PCP for sleep apnea screening DVT prophylaxis - c/w Lovenox DISCHARGE MEDICATIONS: Please see below. ALLERGIES: Please see below. PHYSICAL EXAMINATION ON DISCHARGE: Vitals (See below) General: Lying in bed, remains comfortable, AAOx3 HEENT: NC, AT CVS: RRR, +S1S2 Lungs: Fair air entry b/l, no appreciable wheezing / rhonchi / rales Abdomen: Soft, abdomen is with tenderness, mild distention Extremities: LE do not reveal any edema, - Calf tenderness LABORATORY DATA: Please see below. ACTIVITY: [As tolerated]. DISCHARGE PLAN: Follow up with PCP and Nephrology within 7 days Remain compliant with treatment plan and medications Return to the ER if you experience any problems DISPOSITION: Home with services DISCHARGE CONDITION: [Stable]. TIME SPENT ON DISCHARGE: 35 minutes. Vital Signs/I&Os Vital Signs Date Time Temp Pulse Resp B/P (MAP) Pulse Ox O2 Delivery O2 Flow Rate FiO2 07/27/20 08:21 162/73 07/27/20 06:00 98.1 79 18 93 Room Air 07/24/20 01:29 0.5 I&O- Last 24 Hours up to 6 AM 07/27/20 06:00 Intake Total 1230 ml Output Total 200 ml Balance 1030 ml Laboratory Data Labs 24H Laboratory Tests 2 07/26/20 16:46: Bedside Glucose (Misc Panel) 199H 07/26/20 20:11: Bedside Glucose (Misc Panel) 146H 07/27/20 05:27: Bedside Glucose (Misc Panel) 158H 07/27/20 06:13: Immature Granulocyte % (Auto) 0.6, Neutrophils (%) (Auto) 73.8H, Lymphocytes (%) (Auto) 9.7L, Monocytes (%) (Auto) 14.2H, Eosinophils (%) (Auto) 1.2, Basophils (%) (Auto) 0.5, Neutrophils # (Auto) 6.5, Lymphocytes # (Auto) 0.9L, Monocytes # (Auto) 1.3H, Eosinophils # (Auto) 0.1, Basophils # (Auto) 0.0, Nucleated Red Blood Cells % (auto) 0.0 07/27/20 06:16: Anion Gap 6L, Glomerular Filtration Rate > 60.0, Calcium Level 9.2, Phosphorus Level 3.9, Albumin 2.5L 07/27/20 11:37: Bedside Glucose (Misc Panel) 128H CBC/BMP Laboratory Tests 07/27/20 06:13 07/27/20 06:16 FSBS Laboratory Tests Test 07/26/20 16:46 07/26/20 20:11 07/27/20 05:27 07/27/20 11:37 Range/Units Bedside Glucose (Misc Panel) 199 146 158 128 83-110 MG/DL Microbiology Microbiology 07/24/20 Urine Culture - Final, Complete Escherichia Coli Discharge Medications Scheduled Aspirin (Aspir 81) 81 Mg Tablet.dr, 81 MG PO DAILY, (Reported) Atorvastatin Calcium (Atorvastatin Calcium) 20 Mg Tablet, 20 MG PO DAILY Buspirone HCl (Buspirone HCl) 5 Mg Tablet, 5 MG PO TID Calcium Carbonate/Vitamin D3 (Calcium 500-Vit D3 200 Tablet) 1 Each Tablet, 1 TAB PO DAILY, (Reported) Cefdinir (Cefdinir) 300 Mg Capsule, 300 MG PO BID Divalproex Sodium (Divalproex Sodium ER) 500 Mg Tab.er.24h, 2,000 MG PO QPM, (Reported) Furosemide (Furosemide) 40 Mg Tablet, 40 MG PO DAILY Glipizide (Glipizide ER) 5 Mg Tab.er.24, 10 MG PO DAILY, (Reported) Levothyroxine Sodium (Synthroid) 75 Mcg Tablet, 75 MCG PO DAILY, (Reported) Linagliptin (Tradjenta) 5 Mg Tablet, 5 MG PO DAILY, (Reported) Losartan Potassium (Losartan Potassium) 50 Mg Tablet, 50 MG PO DAILY, (Reported) Lovastatin (Lovastatin) 40 Mg Tablet, 40 MG PO DAILY, (Reported) Lurasidone HCl (Latuda) 80 Mg Tablet, 80 MG PO QHS, (Reported) TAKES WITH 20MG TABLET FOR TOTAL OF 100MG Lurasidone Hydrochloride (Latuda) 20 Mg Tablet, 20 MG PO QHS, (Reported) TAKES WITH 80MG TABLET FOR TOTAL OF 100MG Sennosides/Docusate Sodium (Senna Plus Tablet) 1 Each Tablet, 2 TAB PO BID Sodium Chloride (Sodium Chloride) 1 Gm Tablet, 1 GM PO TID Scheduled PRN Acetaminophen (Tylenol Extra Strength) 500 Mg Tablet, 1,000 MG PO TID PRN for PAIN, (Reported) Hydroxyzine HCl (Hydroxyzine HCl) 10 Mg Tablet, 10 MG PO BIDP PRN for ANXIETY/AGITATION Magnesium Hydroxide (Milk of Magnesia) 400 Mg/5 Ml Oral.susp, 30 ML PO DAILY PRN for CONSTIPATION Nystatin (Nystatin Powder) 15 Gm Powder, 1 APLCT TOP DAILY PRN for ITCHING, (Reported) APPLY TO PERINEAL AREA FOR ITCHING Allergies Coded Allergies: No Known Allergies (Unverified , 07/19/20) TESHA PLASCENCIA MD Jul 27, 2020 14:35
[2020-07-27] MEDS: LURASIDONE HCL 40 MG TAB (LATUDA) PO SCH (21:15)
[2020-07-27] MEDS: SENOKOT S TAB PO SCH (21:15)
[2020-07-27] MEDS: LURASIDONE 20 MG TAB (LATUDA) PO SCH (21:16)
[2020-07-27] MEDS: DIVALPROEX 500MG *ER* TAB PO SCH (21:17)
[2020-07-27] MEDS: hydrOXYzine 10 MG TAB PO PRN (21:59)
[2020-07-27 22:00] VITALS: BP 147/72
[2020-07-28] MEDS: ACETAMINOPHEN TAB 650MG DOSE (2X325MG) PO PRN ×2 (04:16→13:10)
[2020-07-28 06:00] VITALS: BP 105/59
[2020-07-28] MEDS: LEVOTHYROXINE 75MCG TABLET (0.075MG) PO SCH (06:09)
[2020-07-28 08:09] LABS: ALBUMIN 2.6 GM/DL (3.2-5.2); BLOOD UREA NITROGEN 19 MG/DL (7-18); CALCIUM LEVEL 8.9 MG/DL (8.8-10.2); CARBON DIOXIDE LEVEL 29 MEQ/L (21-32); CHLORIDE LEVEL 100 MEQ/L (98-107); CREATININE FOR GFR 0.53 MG/DL (0.55-1.30); GLOMERULAR FILTRATION RATE > 60.0 (>39); GLUCOSE, FASTING 137 MG/DL (70-100); PHOSPHORUS LEVEL 4.8 MG/DL (2.5-4.9); POTASSIUM SERUM 4.5 MEQ/L (3.5-5.1); SODIUM LEVEL 133 MEQ/L (136-145)
[2020-07-28] MEDS: CEFDINIR 300 MG CAP (OMNICEF) PO SCH (08:43)
[2020-07-28] MEDS: HumaLOG INSULIN (NovoLOG) PER UNIT SC SCH ×2 (08:43→12:00)
[2020-07-28] MEDS: SODIUM CHLORIDE 1 GM TAB PO SCH (08:43)
[2020-07-28] MEDS: busPIRone 5 MG TAB PO SCH (08:43)
[2020-07-28 08:45] VITALS: BP 133/65
[2020-07-28] MEDS: LOSARTAN 50MG TABLET PO SCH (08:45)
[2020-07-28] MEDS: ASPIRIN 81 MG ENTERIC TAB PO SCH (08:46)
[2020-07-28] MEDS: ATORVASTATIN 20 MG TAB PO SCH (08:46)
[2020-07-28] MEDS: NYSTATIN 100,000 UNITS/GM TOPICAL PWD 15 GM TOP SCH (08:48)
[2020-07-28] MEDS: ENOXAPARIN 40MG/0.4ML SYRINGE (J1650 PER 10MG) SC SCH (08:48)
[2020-07-28] MEDS ORDERED: FUROSEMIDE 40 MG TAB PO SCH (09:00)
[2020-07-28] MEDS ORDERED: POTASSIUM CHLORIDE 10 MEQ SR TABLET PO SCH (09:00)
[2020-07-28] MEDS ORDERED: FURO40TA2 PO (10:55)
--- NOTE | 2020-07-28 11:32 | IPN ---
DATE: 07/26/2020 SUBJECTIVE: Mrs. Manuel is seen this morning at her bedside. She is sitting in the chair and remains very anxious. She is talking mostly about discomfort in her abdomen and lack of bowel movement. She denies any nausea or vomiting. She has no dyspnea or chest pain. PHYSICAL EXAMINATION: VITAL SIGNS: Temperature 97 degrees Fahrenheit, heart rate 92 per minute and respiratory rate per minute. Blood pressure 149/85 mmHg and oxygen saturation 92% on room air. HEENT: Head is atraumatic. NECK: Supple without JVD or thyroid enlargement. HEART: Heart sounds are regular. LUNGS: Clear to auscultation. ABDOMEN: Quite protuberant and nontender. Bowel sounds are present. EXTREMITIES: Without any cyanosis or clubbing. She does not have any peripheral edema at present. LABS: Todays labs show sodium level up to 131, potassium 4.1, CO2 29, BUN 9, creatinine 0.45. Glucose 157 and calcium 9.2. PROBLEMS: 1. Hyponatremia, sodium level has gradually improved up to 131. She probably has mild chronic hyponatremia. At present, she is doing well with current regimen of oral sodium chloride tablets and Lasix. We will continue with the same. 2. Constipation, this is also probably a chronic issue. She is receiving medications per the Hospitalist recommendations. 3. UTI, she is now on Cefdinir 300 mg b.i.d. 4. Generalized weakness and deconditioning. She is walking with the help of a physical therapist. DARRYN
--- NOTE | 2020-07-28 11:34 | IPN ---
DATE: 07/27/2020 SUBJECTIVE: Mrs. Manuel is seen this morning at her bedside. She is sitting in the recliner chair without any distress. She denies any nausea or vomiting. She did Physical Therapy this morning and has been cleared by the physical therapist for discharge to home. PHYSICAL EXAMINATION: VITAL SIGNS: Temperature 98.1 degrees Fahrenheit, heart rate is 78 per minute and respiratory rate is 18 per minute. Blood pressure 162/73 mmHg and oxygen saturation 93% on room air. HEENT: Head is atraumatic. NECK: Supple without JVD or thyroid enlargement. HEART: Heart sounds are regular. LUNGS: Clear to auscultation. ABDOMEN: Soft, protuberant and nontender. Bowel sounds are present. EXTREMITIES: Without any cyanosis or clubbing. NEUROLOGICAL: She is awake, alert and at her baseline mentation. LABS: Todays labs showed a WBC count of 8.8, hemoglobin 14 and hematocrit 41.6, sodium is up to 132, potassium 3.8, BUN 16 and creatinine 0.56, glucose 149, calcium 9.2. PROBLEMS: 1. Hyponatremia, sodium level is improving nicely and she will continue with oral sodium chloride tablets 1 gram t.i.d. along with furosemide 40 mg daily. 2. Hypokalemia, potassium level is stable and we will continue with potassium chloride 20 mEq once a day. 3. UTI. She is doing well with Cefdinir and the symptoms have improved. 4. Disposition: Patient is likely to be discharged to home today and will follow-up in our outpatient clinic in one week. DARRYN
--- NOTE | 2020-07-30 12:25 | IPN ---
DATE: 07/26/20 HISTORY: Mrs. Manuel was initially seen for hyponatremia. Her sodium level has improved and she has been made ALC level today. From a renal standpoint she is doing well with stable renal function and sodium level is now up t0 133. RECOMMENDATIONS AND PLAN: At this point I think that she can be discharged to home for further follow up as an outpatient. No need for daily nephrology follow up. I am signing off on the case. Please do not hesitate to call back should you need any further assistance. DARRYN
--- NOTE | 2020-07-31 16:32 | ECHO ---
DATE OF PROCEDURE: 07/26/2020 Age: 74 Gender: Female Height: Weight: REFERRING PHYSICIAN: Elke Segovia MD INDICATION: Shortness of breath MEASUREMENTS: 2D measurements: IVS 0.9 cm LV 5.7 cm LVPW 0.8 cm LA 2.8 cm Aorta 2.9 cm IVC 1.5 cm DOPPLER MEASUREMENTS: Peak velocity across the aortic valve 2.1 m/s Peak velocity across the LVOT 1.1 m/s Peak gradient across the aortic valve 18 mmHg Mean gradient across the aortic valve 10 mmHg Mitral E 0.7, mitral A 1.4 with a ratio of 0.5 2D COMMENTS: 1. Mildly enlarged left ventricle with normal left ventricular wall thickness and a normal global left ventricular systolic function. Estimated left ventricular systolic ejection fraction is 60 to 65% 2. Normal left atrium. Normal right atrium and right ventricle. 3. The atrial septum appears to be normal without evidence of defect or shunt. 4. Normal aortic root. 5. No pericardial effusion seen. 6. Mildly calcified aortic valve with mildly restricted leaflet motion. Mildly calcified mitral annulus with normal anterior mitral valve leaflet motion. Normal tricuspid valve. The pulmonic valve appears to be normal in limited views. The proximal pulmonary artery branches were not visualized. 7. The inferior vena cava was normal in size, central venous pressure is most likely normal. DOPPLER: It detects no significant abnormalities, but mild aortic stenosis. Abnormal relaxation pattern was noted across the mitral leaflets, as well as the mitral valve annulus consistent with features of grade 1 left ventricular diastolic dysfunction. IMPRESSION: 1. Normal global Left ventricular systolic function with a mildly enlarged left ventricle. The features are consistent with grade 1 left ventricular diastolic dysfunction manifested by abnormal relaxation. 2. Aortic valve sclerosis with mild aortic stenosis, but no aortic regurgitation 3. Relative mitral annulus calcification. 4. As mentioned above, this study was technically limited due to poor acoustic MTDD
--- NOTE | 2020-08-16 07:16 | REP ---
PORTABLE CHEST X-RAY: 07/23/20 AT 7:14AM CLINICAL: Dyspnea FINDINGS: The mediastinum and cardiac silhouette are normal. The lung moe are relatively clear and without focal consolidation, effusion or pneumothorax. A mild bronchitis cannot be excluded. Skeletal structures are intact. IMPRESSION: No focal consolidation. Cannot exclude subtle bronchitis. MTDD
--- NOTE | 2020-08-16 07:17 | REP ---
ABDOMINAL RADIOGRAPHS CLINICAL: Constipation. TECHNIQUE: Three supine views of the abdomen and pelvis. FINDINGS: Evidence for moderate to marked fecal stasis and presumed constipation. Associated ileus cannot be excluded. No definite bowel obstruction. No obvious free air to suggest perforation. No organomegaly. No abnormal calcifications. Skeletal structures demonstrate age-related degenerative changes. IMPRESSION: Findings consistent with moderate to significant fecal stasis and presumed constipation, as well as ileus. MTDD
== END 2020-07-28 15:30 | disposition home health service (06) | DRG 644 ==
LOC: M ED 17:28 → MERGE 23:12 → M ED INP 23:12 → ENRESERV 07-23 00:38 → M MS5PR 07-23 02:00
PROVIDERS: ADMIT Internal Medicine; ATTEND Internal Medicine
DX: E22.2 Syndrome of inappropriate secretion of antidiuretic hormone (principal); N39.0 Urinary tract infection, site not specified; E11.9 Type 2 diabetes mellitus without complications; I10 Essential (primary) hypertension; E78.5 Hyperlipidemia, unspecified; F31.9 Bipolar disorder, unspecified; E03.9 Hypothyroidism, unspecified; K59.00 Constipation, unspecified; E66.9 Obesity, unspecified; R06.09 Other forms of dyspnea; Z68.34 Body mass index [BMI] 34.0-34.9, adult; Z79.82 Long term (current) use of aspirin; Z79.84 Long term (current) use of oral hypoglycemic drugs; Z79.899 Other long term (current) drug therapy; G25.1 Drug-induced tremor; T42.6X5A Adverse effect of other antiepileptic and sedative-hypnotic drugs, initial encounter; F41.9 Anxiety disorder, unspecified; B96.20 Unspecified Escherichia coli [E. coli] as the cause of diseases classified elsewhere

== ENCOUNTER 2020-07-29 21:32 | Emergency (ER) | payer MEDICARE, MEDICAID ==
[~2020-07-29] VITALS: Ht 165.1 cm; Wt 100.0 kg
[~2020-07-29 21:32] MED LIST changes: +ATOR1TAB21 PO; +BUSP5TA PO; +CALC500T44 PO; +CEFD300CAP PO; +DIVA500T9 PO; +FURO40TA2 PO; +HYDR-643 PO; +MOM30SS2 PO; +SENN-52 PO; +SODI1TAB6 PO
[2020-07-29] MEDS ORDERED: IPRATROPIUM 0.5MG/ALBUTEROL 2.5MG INH SOL UD 3ML (DUONEB) NEB PRN (21:45)
[2020-07-29] MEDS ORDERED: FUROSEMIDE 40MG/4ML VIAL (J1940) IV ONE (21:45)
[2020-07-29 22:31] LABS: ABG BASE EXCESS 4.9 (-2.0-2.0); ABG HCO3 29.9 MEQ/L (22.0-26.0); ABG O2 SATURATION 95.1 % (95.0-99.0); ABG PARTIAL PRESSURE CO2 45.3 mmHg (35.0-45.0); ABG PARTIAL PRESSURE O2 72.2 mmHg (75.0-100.0); ABG STANDARD HCO3 28.8 MEQ/L (22.0-26.0); ABG TOTAL CO2 31.3 MEQ/L (23.0-31.0); ABG pH (ARTERIAL) 7.437 UNITS (7.350-7.450)
[2020-07-29 22:43] LABS: BASO # 0.1 10^3/uL (0.0-0.2); BASO % 0.9 % (0.0-1.0); EOS # 0.2 10^3/uL (0.0-0.5); EOS % 2.3 % (0.0-3.0); HEMATOCRIT 42.3 % (36.0-47.0); HEMOGLOBIN 14.1 g/dl (12.0-15.5); LYMPH # 1.3 10^3/uL (1.5-5.0); MEAN CORPUSCULAR HEMOGLOBIN 31.8 pg (27.0-33.0); MEAN CORPUSCULAR HGB CONC 33.3 g/dl (32.0-36.5); MEAN CORPUSCULAR VOLUME 95.3 fl (80.0-96.0); MONO # 1.4 10^3/uL (0.0-0.8); MONO % 15.5 % (0.0-5.0); NEUTROPHILS # 6.1 10^3/uL (1.5-8.5); NEUTROPHILS % 66.6 % (36.0-66.0); PLATELET COUNT, AUTOMATED 386 10^3/uL (150-450); RED BLOOD COUNT 4.44 10^6/uL (4.00-5.40); WHITE BLOOD COUNT 9.1 10^3/uL (4.0-10.0)
[2020-07-29 23:16] LABS: ALT/SGPT 30 U/L (12-78); BILIRUBIN,DIRECT 0.2 MG/DL (0.0-0.2); BILIRUBIN,TOTAL 0.4 MG/DL (0.2-1.0); BLOOD UREA NITROGEN 16 MG/DL (7-18); CALCIUM LEVEL 9.6 MG/DL (8.8-10.2); CARBON DIOXIDE LEVEL 30 MEQ/L (21-32); CHLORIDE LEVEL 98 MEQ/L (98-107); CPK CREATINE PHOSPHOKINASE 63 U/L (26-192); GLOMERULAR FILTRATION RATE > 60.0 (>39); GLUCOSE, FASTING 127 MG/DL (70-100); MB/CK RELATIVE INDEX 1.59 (< OR =4); NT-PRO BNP 39 PG/ML (<125); POTASSIUM SERUM 4.1 MEQ/L (3.5-5.1); SODIUM LEVEL 133 MEQ/L (136-145); TOTAL PROTEIN 8.5 GM/DL (6.4-8.2); TROPONIN I < 0.02 NG/ML (< 0.10)
--- NOTE | 2020-07-30 00:09 | REPVR ---
PROCEDURE INFORMATION: Exam: XR Chest, 1 View Exam date and time: 07/29/2020 11:57 PM Age: 74 years old Clinical indication: Other: Dyspnea/cough TECHNIQUE: Imaging protocol: XR of the chest Views: 1 view. COMPARISON: CR PORTABLE CHEST X-RAY 07/23/2020 7:14 AM FINDINGS: Lungs: Minimal right perihilar focal infiltrate or atelectasis which is similar to the prior study. Pleural space: Unremarkable. No pleural effusion. No pneumothorax. Heart/Mediastinum: The heart and mediastinum are essentially unchanged. Bones/joints: Unremarkable. Soft tissues: There are moderately generous overlying soft tissues. IMPRESSION: 1. There has been little change from 07/23/2020. 2. Minimal right perihilar focal infiltrate or atelectasis which is unchanged from the prior study. Perihilar nodule is not excluded. Electronically signed by: Gilmer Ash On 07/30/2020 00:09:22 AM
[2020-07-30 01:08] VITALS: BP 161/77
--- NOTE | 2020-08-02 21:34 | ECGEPIP ---
[facility] - ED Test Date: 2020-07-29 Pat Name: MAITE BELLA Department: Room: - Gender: Female Patient Observation Assistant: esvin : 1945 Requested By: XIAO SILVEIRA Order Number: [id number] Reading MD: Veronica Garcia Measurements Intervals [place] Rate: 91 P: 28 [place]: 181 QRS: -39 QRSD: 104 T: 62 QT: 380 QTc: 468 Interpretive Statements SINUS RHYTHM MARKED LEFT AXIS DEVIATION SEE SCANNED DOWNTIME REPORT
== END 2020-07-30 01:40 | disposition home or self-care (01) ==
LOC: MERGE 21:32 → M ED 21:32
DX: J44.9 Chronic obstructive pulmonary disease, unspecified (principal); I11.9 Hypertensive heart disease without heart failure; E78.5 Hyperlipidemia, unspecified; R60.0 Localized edema; Z99.81 Dependence on supplemental oxygen; Z79.899 Other long term (current) drug therapy; Z79.2 Long term (current) use of antibiotics
CPT/HCPCS: 36600; 71045; 80048; 80076; 82550; 82553; 82803; 83880; 84484; 85025; 87486; 87581; 87633; 87798; 93005; 93041; 94640; 96374; 99285; J1940

== ENCOUNTER → 2020-09-14 | Outpatient (REF) | payer MEDICARE, MEDICAID ==
[~2020-09-14] MED LIST changes: +AMER20OI EXT; +ASPI81CH33 PO; +KP V1TAB PO; +TAB-TAB2 PO
== END ==
LOC: M SFHCWAGY 13:21
PROVIDERS: ATTEND Nurse Practitioner Family
DX: R30.0 Dysuria (principal)
CPT/HCPCS: 81002; 87086; G0463

== ENCOUNTER 2020-09-19 14:10 | Emergency (ER) | payer MEDICARE, MEDICAID ==
[~2020-09-19] VITALS: Ht 165.1 cm; Wt 86.4 kg
[~2020-09-19 14:10] MED LIST changes: -AMER20OI EXT; -ASPI81CH33 PO; -KP V1TAB PO; -TAB-TAB2 PO
[2020-09-19 16:24] VITALS: BP 186/92
[2020-10-04] MEDS ORDERED: KP V1TAB PO (15:30)
[2020-10-04] MEDS ORDERED: ASPI81CH33 PO (15:30)
[2020-10-04] MEDS ORDERED: TRAD5TAB PO (15:30)
[2020-10-04] MEDS ORDERED: TAB-TAB2 PO (15:30)
== END 2020-09-19 17:33 | disposition home or self-care (01) ==
LOC: M ED 14:10 → EDBD 14:10 → M ED 17:33
DX: F43.0 Acute stress reaction (principal); E11.9 Type 2 diabetes mellitus without complications; I10 Essential (primary) hypertension; E78.00 Pure hypercholesterolemia, unspecified; F31.9 Bipolar disorder, unspecified; F41.9 Anxiety disorder, unspecified; G47.30 Sleep apnea, unspecified; F17.210 Nicotine dependence, cigarettes, uncomplicated; Z88.8 Allergy status to other drugs, medicaments and biological substances; Z79.82 Long term (current) use of aspirin; Z79.84 Long term (current) use of oral hypoglycemic drugs; Z79.899 Other long term (current) drug therapy

== ENCOUNTER → 2020-10-09 | Outpatient (REF) | payer MEDICARE, MEDICAID ==
[~2020-10-09] MED LIST changes: +ASPI81CH33 PO; +KP V1TAB PO; +TAB-TAB2 PO
[2020-10-09 17:58] LABS: BASO # 0.1 10^3/uL (0.0-0.2); BASO % 0.8 % (0.0-1.0); EOS # 0.1 10^3/uL (0.0-0.5); EOS % 1.1 % (0.0-3.0); HEMATOCRIT 40.6 % (36.0-47.0); HEMOGLOBIN 13.6 g/dl (12.0-15.5); LYMPH # 1.5 10^3/uL (1.5-5.0); LYMPH % 19.3 % (24.0-44.0); MEAN CORPUSCULAR HEMOGLOBIN 31.6 pg (27.0-33.0); MEAN CORPUSCULAR HGB CONC 33.5 g/dl (32.0-36.5); MEAN CORPUSCULAR VOLUME 94.4 fl (80.0-96.0); MONO # 0.8 10^3/uL (0.0-0.8); MONO % 10.7 % (0.0-5.0); NEUTROPHILS # 5.1 10^3/uL (1.5-8.5); NEUTROPHILS % 67.7 % (36.0-66.0); PLATELET COUNT, AUTOMATED 358 10^3/uL (150-450); WHITE BLOOD COUNT 7.6 10^3/uL (4.0-10.0)
[2020-10-09 18:21] LABS: ALBUMIN 3.3 GM/DL (3.2-5.2); ALT/SGPT 26 U/L (12-78); BILIRUBIN,TOTAL 0.3 MG/DL (0.2-1.0); BLOOD UREA NITROGEN 12 MG/DL (7-18); CARBON DIOXIDE LEVEL 30 MEQ/L (21-32); CHLORIDE LEVEL 96 MEQ/L (98-107); CREATININE FOR GFR 0.57 MG/DL (0.55-1.30); GLOMERULAR FILTRATION RATE > 60.0 (>39); GLUCOSE, FASTING 116 MG/DL (70-100); POTASSIUM SERUM 3.8 MEQ/L (3.5-5.1); SODIUM LEVEL 133 MEQ/L (136-145); TOTAL PROTEIN 7.9 GM/DL (6.4-8.2)
[2020-10-09 19:38] LABS: HEMOGLOBIN A1c 6.5 %
== END ==
LOC: M LAB REF 16:21
PROVIDERS: ATTEND Nurse Practitioner Family
DX: L29.2 Pruritus vulvae (principal); Z79.899 Other long term (current) drug therapy

== ENCOUNTER → 2020-10-16 | Outpatient (CLI) | payer MEDICARE, MEDICAID ==
[~2020-10-16] MED LIST changes: +AMER20OI EXT
== END ==
LOC: M LABSMTC 11:43
PROVIDERS: ATTEND Anesthesiology
DX: Z01.812 Encounter for preprocedural laboratory examination (principal); Z20.828 Contact with and (suspected) exposure to other viral communicable diseases

== ENCOUNTER 2020-10-18 09:15 | Day surgery (SDC) | payer MEDICARE, MEDICAID ==
[~2020-10-18] VITALS: Ht 167.6 cm; Wt 84.8 kg
[~2020-10-18 09:15] MED LIST changes: -AMER20OI EXT; +LR 1,000 ML IV ONE
[2020-10-18 10:11] LABS: HEMATOCRIT 42.2 % (36.0-47.0); HEMOGLOBIN 14.4 g/dl (12.0-15.5); MEAN CORPUSCULAR HEMOGLOBIN 32.4 pg (27.0-33.0); MEAN CORPUSCULAR HGB CONC 34.1 g/dl (32.0-36.5); MEAN CORPUSCULAR VOLUME 94.8 fl (80.0-96.0); PLATELET COUNT, AUTOMATED 361 10^3/uL (150-450); RED BLOOD COUNT 4.45 10^6/uL (4.00-5.40); WHITE BLOOD COUNT 9.9 10^3/uL (4.0-10.0)
[2020-10-18] MEDS ORDERED: ONDANSETRON 4MG/2ML VIAL As Ordered ONE (10:26)
[2020-10-18] MEDS ORDERED: dexameTHASONE 4 MG/ML 1ML VIAL (J1100 PER 1MG) As Ordered ONE (10:26)
[2020-10-18] MEDS ORDERED: LIDOCAINE 2% 100MG/5ML SDV (FOR ANES.) As Ordered ONE (10:26)
[2020-10-18] MEDS ORDERED: propofoL 200 MG/20 ML VIAL As Ordered ONE ×4 (10:26→10:29)
[2020-10-18] MEDS ORDERED: MIDAZOLAM INJ 2MG/2ML VIAL (J2250 PER 1MG) As Ordered ONE (10:27)
[2020-10-18] MEDS ORDERED: fentaNYL 100 MCG/2 ML INJECTION (J3010) As Ordered ONE (10:27)
[2020-10-18] MEDS ORDERED: BUPIVACAINE HCL 0.25% 30ML VIAL As Ordered ONE (11:34)
[2020-10-18] MEDS ORDERED: KETAMINE HCL 200 MG/20 ML VIAL As Ordered ONE (11:43)
[2020-10-18] MEDS ORDERED: LABETALOL 100MG/20ML VIAL As Ordered ONE (11:56)
[2020-10-18] MEDS ORDERED: SILVER NITRATE APPLICATOR As Ordered ONE (11:57)
[2020-10-18] MEDS ORDERED: KETOROLAC 60MG 2ML VIAL As Ordered ONE (12:11)
--- NOTE | 2020-10-18 12:26 | ROOPDOC ---
[facility] Report Of Operation Report of Operation DATE OF PROCEDURE: 10/18/20 PREPROCEDURE DIAGNOSES: Vulvar/periclitoral mass. POSTPROCEDURE DIAGNOSES: Same. PROCEDURE: Exam under anesthesia, vulvar biopsies. SURGEON: Majo Agudelo DO FACOG LOGISTICS INTERN: winnie ANESTHESIA: IV sedation, local ESTIMATED BLOOD LOSS: Approximately 50 mL. IV FLUIDS: 400mL LR UOP: 100mL FINDINGS: [id number] periclitoral mass, predominantly on the left side, but also extending to the right. Mass found underneath the clitoral carnes/within labia minora. Indurated/firm, fixed in place. Friable tissue noted upon biopsy. No apparent urethral or vaginal involvement. INDICATIONS: Estela is a 75 yo who is both limited mentally and physically. She has multiple co-morbidities. In the office, she was noted to have a large vulvar/periclitoral mass. To assess the extent of this mass and to obtain a definitive diagnosis, the decision was made to proceed with an exam under anesthesia with vulvar biopsies. She has been cleared for anesthesia and the procedure by her primary care physician. ANTIBIOTICS: None PROCEDURE: After the patient was positioned in the low lithotomy position, sterile prepped and draped, a time out was performed per protocol. Anesthesia was found to be adequate. An exam under anesthesia was performed with the findings noted above. Local anesthesia was administered around the mass. Vulvar biopsies were performed with the Tischner biopsy forceps. The resultant bleeding was controlled with pressure and application of silver nitrate. Sponge, sharp, and instrument counts were correct per protocol. The patient tolerated the entire procedure well and was transferred to the PACU in good and stable condition. DO EVERARDO Jiang JONATHAN R. DO Oct 18, 2020 12:26
[2020-10-18] MEDS ORDERED: AMER20OI EXT (12:54)
[2020-10-18] MEDS ORDERED: ONDANSETRON 4MG/2ML VIAL IV PRN (13:00)
[2020-10-18] MEDS ORDERED: oxyCODONE 5MG TAB PO PRN (13:00)
[2020-10-18] MEDS ORDERED: BENZOCAINE 20% HEMORRHOIDAL OINTMENT 28GM TUBE TOP PRN (13:00)
[2020-10-18] MEDS ORDERED: LR 1,000 ML IV SCH (13:00)
[2020-10-18 15:33] VITALS: BP 139/61
== END 2020-10-18 16:30 | disposition home or self-care (01) ==
LOC: M SDC 09:15
PROVIDERS: ATTEND Obstetrics & Gynecology
DX: C51.9 Malignant neoplasm of vulva, unspecified (principal); E11.9 Type 2 diabetes mellitus without complications; E03.9 Hypothyroidism, unspecified; I10 Essential (primary) hypertension; E78.00 Pure hypercholesterolemia, unspecified; Z79.82 Long term (current) use of aspirin; Z79.899 Other long term (current) drug therapy; G47.30 Sleep apnea, unspecified; Z88.8 Allergy status to other drugs, medicaments and biological substances; Z85.118 Personal history of other malignant neoplasm of bronchus and lung; Z92.3 Personal history of irradiation; F31.9 Bipolar disorder, unspecified; F41.9 Anxiety disorder, unspecified; F32.9 Major depressive disorder, single episode, unspecified
CPT/HCPCS: 36415; 56605; 85027; 86850; 86900; 86901; 88305; J1885; J2250; J2405; J3010

== ENCOUNTER → 2020-11-14 | Outpatient (CLI) | payer MEDICARE, MEDICAID ==
[~2020-11-14] MED LIST changes: +AMER20OI EXT; -LR 1,000 ML IV ONE
== END ==
LOC: M PLARAD 08:25
DX: C51.8 Malignant neoplasm of overlapping sites of vulva (principal); C76.3 Malignant neoplasm of pelvis; Z53.8 Procedure and treatment not carried out for other reasons

== ENCOUNTER → 2020-11-21 | Outpatient (CLI) | payer MEDICARE, MEDICAID ==
--- NOTE | 2020-11-22 14:08 | REP ---
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 New vulvar cancer with groin lymph nodes, suspicious for metastatic disease. COMPARISON: Comparison PET-CT study is from October 12, 2019. There is also a comparison PET-CT study from December 26, 2018. Comparison CT study of the chest November 03, 2020.. TECHNIQUE: Fifty-four minutes following the intravenous injection of a 7.49 mCi dose of F-18 FDG, three-dimensional PET scintigraphy is acquired from the skull base to the proximal thighs. Triplanar noncontrast CT scanning is acquired through the same anatomic range for attenuation correction, and image registration with scan parameters optimized to minimize radiation exposure to the patient. PET scintigraphy and CT datasets were fused and displayed on a workstation with multiplanar and projection display capability. FINDINGS: The 4.3 cm mass in the right upper lobe on chest CT study is hypermetabolic, maximum standard uptake value 15.62. On October 12, 2019, maximum standard uptake value in this nodule was 4.0. It is also seen to have enlarged since then. There is no other abnormal hypermetabolic uptake in the thorax. No new focus of hypermetabolic uptake is seen. There is no evidence of hypermetabolic adenopathy. No abnormal adrenal uptake is seen. In the abdomen and pelvis there is normal distribution of FDG tracer with uptake in the liver, spleen, gastrointestinal, and genitourinary systems. No abnormal johnathan uptake is seen in the abdomen or pelvis. There is a focus of increased uptake in the perineum with maximum standard uptake value 13.17 however this may be urinary contamination. No definite mass effect is seen. There is no evidence of inguinal or other adenopathy. No abnormal hypermetabolic extrapelvic or intrapelvic uptake is seen. In the head and neck, there are 2 adjacent anterior cervical lymph nodes each of which is under a cm in diameter the which show mildly increased uptake. Maximum standard uptake value in these 2 lymph nodes on the left is 3.21. There is a similar. Normal size subcentimeter lymph node in the right anterior neck where maximum is in standard uptake values 2.85. These are of uncertain significance. No supraclavicular adenopathy is seen. Head and neck soft tissues are otherwise unremarkable. IMPRESSION: Hypermetabolic uptake is seen in the known malignant mass in the right upper lobe. This has increased in size and avidity, 15.62 SUV. There are equivocal normal-sized lymph nodes with slightly increased uptake in the neck, 2 on the left and 1 on the right. Lastly there is a focus of hypermetabolic uptake in the perineum in the midline at the vaginal introitus. The this may be urinary contamination. No pelvic mass or adenopathy is seen. <Electronically signed by Wojciech Jacobs > 11/22/20 [id number]
== END ==
LOC: M PLARAD 14:16
PROVIDERS: ATTEND Obstetrics & Gynecology Gynecologic Oncology
DX: C51.8 Malignant neoplasm of overlapping sites of vulva (principal)
CPT/HCPCS: 78815; A9552

== ENCOUNTER → 2020-11-28 | Outpatient (REF) | payer MEDICARE, MEDICAID | LOC: M LAB REF 13:00 | PROVIDERS: ATTEND Nurse Practitioner Family | DX: L29.2 Pruritus vulvae (principal) ==

== ENCOUNTER → 2020-12-08 | Outpatient (REF) | payer MEDICARE, MEDICAID ==
[2020-12-08 18:29] LABS: BASO # 0.1 10^3/uL (0.0-0.2); BASO % 0.5 % (0.0-1.0); EOS # 0.1 10^3/uL (0.0-0.5); EOS % 0.4 % (0.0-3.0); HEMATOCRIT 41.4 % (36.0-47.0); HEMOGLOBIN 13.6 g/dl (12.0-15.5); LYMPH # 1.8 10^3/uL (1.5-5.0); LYMPH % 15.5 % (24.0-44.0); MEAN CORPUSCULAR HEMOGLOBIN 31.5 pg (27.0-33.0); MEAN CORPUSCULAR HGB CONC 32.9 g/dl (32.0-36.5); MEAN CORPUSCULAR VOLUME 95.8 fl (80.0-96.0); MONO % 8.4 % (0.0-5.0); NEUTROPHILS # 8.7 10^3/uL (1.5-8.5); NEUTROPHILS % 74.9 % (36.0-66.0); PLATELET COUNT, AUTOMATED 363 10^3/uL (150-450); RED BLOOD COUNT 4.32 10^6/uL (4.00-5.40); WHITE BLOOD COUNT 11.6 10^3/uL (4.0-10.0)
[2020-12-08 19:04] LABS: ALBUMIN 3.3 GM/DL (3.2-5.2); ALT/SGPT 24 U/L (12-78); BILIRUBIN,TOTAL 0.2 MG/DL (0.2-1.0); BLOOD UREA NITROGEN 14 MG/DL (7-18); CALCIUM LEVEL 10.1 MG/DL (8.8-10.2); CARBON DIOXIDE LEVEL 30 MEQ/L (21-32); CHLORIDE LEVEL 99 MEQ/L (98-107); CREATININE FOR GFR 0.56 MG/DL (0.55-1.30); FREE T4 1.19 NG/DL (0.76-1.46); GLOMERULAR FILTRATION RATE > 60.0 (>39); GLUCOSE, FASTING 111 MG/DL (70-100); POTASSIUM SERUM 4.9 MEQ/L (3.5-5.1); SODIUM LEVEL 136 MEQ/L (136-145); TOTAL PROTEIN 7.5 GM/DL (6.4-8.2)
== END ==
LOC: M LAB REF 16:47
PROVIDERS: ATTEND Nurse Practitioner Family
DX: Z01.818 Encounter for other preprocedural examination (principal); E07.9 Disorder of thyroid, unspecified

== ENCOUNTER → 2021-02-16 | Outpatient (REF) | payer MEDICARE, MEDICAID ==
[2021-02-16 22:19] LABS: INFLUENZA A AMPLIFICATION NEGATIVE (NEGATIVE); INFLUENZA B AMPLIFICATION NEGATIVE (NEGATIVE)
== END ==
PROVIDERS: ATTEND Internal Medicine
DX: Z11.59 Encounter for screening for other viral diseases (principal)

== ENCOUNTER → 2021-02-20 | Outpatient (REF) ==
[2021-02-20 09:29] LABS: HEMATOCRIT 31.6 % (36.0-47.0); HEMOGLOBIN 10.3 g/dl (12.0-15.5); MEAN CORPUSCULAR HEMOGLOBIN 30.7 pg (27.0-33.0); MEAN CORPUSCULAR HGB CONC 32.6 g/dl (32.0-36.5); MEAN CORPUSCULAR VOLUME 94.3 fl (80.0-96.0); PLATELET COUNT, AUTOMATED 336 10^3/uL (150-450); RED BLOOD COUNT 3.35 10^6/uL (4.00-5.40); WHITE BLOOD COUNT 8.6 10^3/uL (4.0-10.0)
[2021-02-20 09:52] LABS: BLOOD UREA NITROGEN 13 MG/DL (7-18); CALCIUM LEVEL 8.7 MG/DL (8.8-10.2); CARBON DIOXIDE LEVEL 28 MEQ/L (21-32); CHLORIDE LEVEL 94 MEQ/L (98-107); CREATININE FOR GFR 0.52 MG/DL (0.55-1.30); GLOMERULAR FILTRATION RATE > 60.0 (>39); GLUCOSE, FASTING 188 MG/DL (70-100); POTASSIUM SERUM 4.5 MEQ/L (3.5-5.1); SODIUM LEVEL 128 MEQ/L (136-145)
== END ==
PROVIDERS: ATTEND Physician Assistant
DX: Z79.899 Other long term (current) drug therapy (principal)

== ENCOUNTER → 2021-02-27 | Outpatient (REF) | payer MEDICARE, MEDICAID ==
[~2021-02-27] MED LIST changes: -CALC500T44 PO; +OYST500T92 PO
== END ==
PROVIDERS: ATTEND Internal Medicine
DX: Z20.822 Contact with and (suspected) exposure to COVID-19 (principal)

== ENCOUNTER → 2021-03-06 | Outpatient (REF) | payer MEDICARE, MEDICAID ==
[2021-03-06 11:53] LABS: HEMATOCRIT 31.9 % (36.0-47.0); HEMOGLOBIN 10.4 g/dl (12.0-15.5); MEAN CORPUSCULAR HEMOGLOBIN 30.3 pg (27.0-33.0); MEAN CORPUSCULAR HGB CONC 32.6 g/dl (32.0-36.5); PLATELET COUNT, AUTOMATED 382 10^3/uL (150-450); RED BLOOD COUNT 3.43 10^6/uL (4.00-5.40); WHITE BLOOD COUNT 7.5 10^3/uL (4.0-10.0)
[2021-03-06 12:19] LABS: BLOOD UREA NITROGEN 9 MG/DL (7-18); CALCIUM LEVEL 8.8 MG/DL (8.8-10.2); CARBON DIOXIDE LEVEL 26 MEQ/L (21-32); CHLORIDE LEVEL 94 MEQ/L (98-107); CREATININE FOR GFR 0.46 MG/DL (0.55-1.30); GLOMERULAR FILTRATION RATE > 60.0 (>39); GLUCOSE, FASTING 132 MG/DL (70-100); POTASSIUM SERUM 4.7 MEQ/L (3.5-5.1); SODIUM LEVEL 128 MEQ/L (136-145)
== END ==
PROVIDERS: ATTEND Internal Medicine
DX: Z20.822 Contact with and (suspected) exposure to COVID-19 (principal); Z79.899 Other long term (current) drug therapy
CPT/HCPCS: 36415; 80048; 85027; U0003

== ENCOUNTER → 2021-04-02 | Outpatient (CLI) | payer MEDICARE, MEDICAID ==
--- NOTE | 2021-04-02 15:39 | REP ---
INDICATION: MAL BLACK OF UPPER LOBE OF LUNG COMPARISON: Multiple latest 11/03/2020 TECHNIQUE: Limited noncontrast enhanced standard helical technique FINDINGS: There is no significant change in appearance of the mediastinum or pulmonary paulino. There are no pleural or pericardial effusions. There is no significant change in appearance of the imaged upper abdomen. There is no significant change in appearance of the imaged osseous structures. Evaluation of the lung moe shows a possible 2-3 mm increase in size of the right upper lobe mass. Certainly, it is gotten no smaller. There is a new asymmetric density seen in the right lower lobe which abuts the major fissure. This measures approximately 2.1 cm. There are no other significant lung field changes. IMPRESSION: 1. Probable slight increase in the size of the known right upper lobe mass. 2. New asymmetric density in the right lower lobe suspicious for an additional neoplastic site. This needs follow-up. 3. Other findings as described above. <Electronically signed by Ihsan Hess > 04/02/21 [id number]
== END ==
LOC: M RAD 15:01
PROVIDERS: ATTEND Internal Medicine Pulmonary Disease
DX: C34.90 Malignant neoplasm of unspecified part of unspecified bronchus or lung (principal)

== ENCOUNTER → 2021-04-04 | Outpatient (REF) | payer MEDICARE, MEDICAID ==
[2021-04-04 11:11] LABS: HEMATOCRIT 34.7 % (36.0-47.0); HEMOGLOBIN 11.3 g/dl (12.0-15.5); MEAN CORPUSCULAR HEMOGLOBIN 29.9 pg (27.0-33.0); MEAN CORPUSCULAR HGB CONC 32.6 g/dl (32.0-36.5); MEAN CORPUSCULAR VOLUME 91.8 fl (80.0-96.0); PLATELET COUNT, AUTOMATED 437 10^3/uL (150-450); RED BLOOD COUNT 3.78 10^6/uL (4.00-5.40); WHITE BLOOD COUNT 6.4 10^3/uL (4.0-10.0)
[2021-04-04 11:38] LABS: BLOOD UREA NITROGEN 8 MG/DL (7-18); CARBON DIOXIDE LEVEL 27 MEQ/L (21-32); CHLORIDE LEVEL 95 MEQ/L (98-107); CREATININE FOR GFR 0.47 MG/DL (0.55-1.30); GLOMERULAR FILTRATION RATE > 60.0 (>39); GLUCOSE, FASTING 129 MG/DL (70-100); POTASSIUM SERUM 4.4 MEQ/L (3.5-5.1); SODIUM LEVEL 129 MEQ/L (136-145)
== END ==
PROVIDERS: ATTEND Internal Medicine
DX: Z13.9 Encounter for screening, unspecified (principal); Z79.899 Other long term (current) drug therapy

== ENCOUNTER → 2021-04-11 | Outpatient (REF) | payer MEDICARE, MEDICAID ==
[2021-04-11 17:36] LABS: HEMATOCRIT 33.3 % (36.0-47.0); HEMOGLOBIN 10.7 g/dl (12.0-15.5); MEAN CORPUSCULAR HEMOGLOBIN 29.5 pg (27.0-33.0); MEAN CORPUSCULAR HGB CONC 32.1 g/dl (32.0-36.5); MEAN CORPUSCULAR VOLUME 91.7 fl (80.0-96.0); PLATELET COUNT, AUTOMATED 391 10^3/uL (150-450); RED BLOOD COUNT 3.63 10^6/uL (4.00-5.40); WHITE BLOOD COUNT 7.1 10^3/uL (4.0-10.0)
[2021-04-11 17:40] LABS: INR 1.02; PROTHROMBIN TIME 13.6 SECONDS (12.5-14.3)
[2021-04-11 17:41] LABS: PARTIAL THROMBOPLASTIN TIME 32.9 SECONDS (24.2-38.5)
[2021-04-11 18:11] LABS: BLOOD UREA NITROGEN 11 MG/DL (7-18); CALCIUM LEVEL 9.4 MG/DL (8.8-10.2); CARBON DIOXIDE LEVEL 29 MEQ/L (21-32); CHLORIDE LEVEL 93 MEQ/L (98-107); CREATININE FOR GFR 0.65 MG/DL (0.55-1.30); GLOMERULAR FILTRATION RATE > 60.0 (>39); GLUCOSE, FASTING 99 MG/DL (70-100); POTASSIUM SERUM 4.9 MEQ/L (3.5-5.1); SODIUM LEVEL 130 MEQ/L (136-145)
[2021-04-11 18:16] LABS: BASOPHILS 1 % (0-1); EOSINOPHILS 1 % (0-3); LYMPHOCYTES 23 % (16-44); MONOCYTES 8 % (0-5); NEUTROPHILS 66 % (28-66)
[2021-04-11 18:17] LABS: PLATELET CLUMPS SMALL AMT
[2021-04-11 18:19] LABS: PLATELET ESTIMATE NORMAL (NORMAL)
[2021-04-11 18:25] LABS: OVALOCYTES 1+
== END ==
LOC: M LAB REF 17:03
PROVIDERS: ATTEND Internal Medicine Pulmonary Disease
DX: J44.9 Chronic obstructive pulmonary disease, unspecified (principal); R91.8 Other nonspecific abnormal finding of lung field; Z79.01 Long term (current) use of anticoagulants

== ENCOUNTER → 2021-05-09 | Outpatient (CLI) | payer MEDICARE, MEDICAID ==
[~2021-05-09] MED LIST changes: +ANOR1AER INH; +APAP325T4 PO; +ASPI81TA26 PO; +BISA10SU27 PR; -BRIM1OPD; +BRIM1OPD OU; +DOCU100C16 PO; +FLEEENE12 PR; +GLUC1KIT SC; +IRBE150T7 PO; +LIDOCAINE 1% MDV 20ML VIAL As Ordered ONE; +LORA1TAB4 PO; +MELA5CAP2 PO; +METO1TAB32 PO; +MILKSUS3 PO; +ONDA8TAB10 PO; +OXYC-517 PO; +PROAAER10 INH; +VITMTA PO
--- NOTE | 2021-05-09 11:53 | REP ---
INDICATION: POST RIGHT LUNG BIOPSY, 1 VIEW, PA EXPIRATION. COMPARISON: 07/29/2020. TECHNIQUE: Single view chest. FINDINGS: There is no significant pneumothorax status post right lung biopsy. Right upper lobe density is again noted. Left lung is clear. The heart and mediastinum appear unchanged. IMPRESSION: No pneumothorax status post right lung biopsy. <Electronically signed by Celso Her > 05/09/21 [id number]
[2021-05-09 13:15] VITALS: BP 156/68
--- NOTE | 2021-05-09 13:57 | REP ---
INDICATION: POST RIGHT LUNG BIOPSY, 1 VIEW, PA EXPIRATION. 1:27 p.m. radiograph. COMPARISON: Comparison radiograph May 09, 2021 at 11:40 a.m... TECHNIQUE: Expiration frontal chest view. FINDINGS: There is no evidence of pneumothorax. The previously noted right perihilar mass is again seen. IMPRESSION: No pneumothorax is visible. <Electronically signed by Wojciech Jacobs > 05/09/21 [id number]
--- NOTE | 2021-05-09 16:29 | REP ---
INDICATION: RT UPPER LOBE NODULE. COMPARISON: None. TECHNIQUE: The procedure was performed under the direct supervision of Dr. Her. The patient has a history of a new asymmetric density in the right lung seen on a previous CT scan dated 04/02/2021. The risks and benefits of the procedure were explained to the patient and informed consent was obtained. The density was localized using CT guidance. The skin was prepped and draped in a sterile fashion. 1% lidocaine was used as a local anesthetic. Using CT guidance a 19/20 gauge coaxial needle biopsy system was inserted and advanced into the lesion. Three core biopsy samples were obtained and sent to the lab for analysis. Post biopsy imaging demonstrates a very small right pneumothorax. The patient stated no pain. The patient's O2 saturations were 98-99% on room air. The patient was placed on 2 L of O2 via nasal cannula. Chest x-ray performed immediately after the procedure shows no evidence of a pneumothorax. Chest x-ray performed 2 hours later again shows no evidence of a pneumothorax. The patient tolerated the procedure well. After the appropriate amount to monitor convalescence the patient was discharged from the department. FINDINGS: None IMPRESSION: CT-guided right lung biopsy. <Electronically signed by Juan Peña > 05/09/21 [id number] <Electronically signed by Celso Her > 05/09/21 0749
== END ==
LOC: M IRPRO 09:57
PROVIDERS: ATTEND Internal Medicine Pulmonary Disease
DX: J84.10 Pulmonary fibrosis, unspecified (principal); J84.09 Other alveolar and parieto-alveolar conditions; R91.8 Other nonspecific abnormal finding of lung field

== ENCOUNTER → 2021-05-12 | Outpatient (REF) | payer MEDICARE, MEDICAID ==
[~2021-05-12] MED LIST changes: -LIDOCAINE 1% MDV 20ML VIAL As Ordered ONE
== END ==
PROVIDERS: ATTEND Internal Medicine
DX: Z01.89 Encounter for other specified special examinations (principal); Z20.822 Contact with and (suspected) exposure to COVID-19

== ENCOUNTER → 2021-05-18 | Outpatient (REF) | payer MEDICARE, MEDICAID ==
[2021-05-18 16:22] LABS: PLATELET COUNT, AUTOMATED 308 10^3/uL (150-450)
[2021-05-18 17:20] LABS: INR 0.98; PROTHROMBIN TIME 13.2 SECONDS (12.5-14.3)
[2021-05-18 17:21] LABS: PARTIAL THROMBOPLASTIN TIME 30.5 SECONDS (24.2-38.5)
== END ==
PROVIDERS: ATTEND Internal Medicine Pulmonary Disease
DX: R91.8 Other nonspecific abnormal finding of lung field (principal)

== ENCOUNTER → 2021-05-22 | Outpatient (CLI) | payer MEDICARE, MEDICAID ==
[~2021-05-22] MED LIST changes: +LIDOCAINE 1% MDV 20ML VIAL As Ordered ONE
[2021-05-22 11:15] VITALS: BP 141/63
--- NOTE | 2021-05-22 11:54 | REP ---
INDICATION: POST RIGHT LUNG BIOPSY, 1 VIEW, PA EXPIRATION. COMPARISON: 05/09/2021. TECHNIQUE: Single view chest. FINDINGS: There is no pneumothorax status post right lung biopsy. Right parahilar mass is again seen unchanged. Remainder of the study is unchanged. IMPRESSION: No pneumothorax status post right lung biopsy. <Electronically signed by Celso Her > 05/22/21 [id number]
--- NOTE | 2021-05-22 16:37 | REP ---
INDICATION: RT UPPER LOBE LUNG BIOPSY. COMPARISON: None. TECHNIQUE: Was performed under the direct supervision of Dr. Her. The patient has a history of a right upper lobe lung mass seen on a previous CT scan dated 04/02/2021. The risks and benefits of the procedure were explained to the patient and informed consent was obtained. The right upper lobe lung mass was localized using CT guidance. The skin was prepped and draped in a sterile fashion. 1% lidocaine was used as a local anesthetic. Using CT guidance a 19/20 gauge coaxial needle biopsy system was inserted and advanced into the mass. Five core biopsy samples were obtained and sent to the lab. Estimated blood loss: Less than 1 cc The patient tolerated the procedure well and there were no immediate complications. After the appropriate amount to monitor convalescence the patient was discharged from the department. FINDINGS: None IMPRESSION: CT-guided right upper lobe lung mass biopsy. <Electronically signed by Juan Peña > 05/22/21 1626 <Electronically signed by Celso Her > 05/22/21 [id number]
== END ==
LOC: M IRPRO 07:57
PROVIDERS: ATTEND Internal Medicine Pulmonary Disease
DX: C34.11 Malignant neoplasm of upper lobe, right bronchus or lung (principal)

== ENCOUNTER → 2021-06-08 | Outpatient (CLI) | payer MEDICARE, MEDICAID ==
[~2021-06-08] MED LIST changes: -LIDOCAINE 1% MDV 20ML VIAL As Ordered ONE
--- NOTE | 2021-06-08 11:53 | RADONC.CN ---
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 She is s/p recent re-biopsy of the RUL apical primary tumor on 05/22/21 which confirmed residual SCC. She is seen today for consideration of further reirradiation. Diagnosis/Treatment History Oncologic History 10/01/[address] scan from evaluation of [facility] measuring 2.5 cm in greatest extent 2018 CT-biopsy showing SCC 03/24/19-03/30/19 Completed SBRT 50 Gy in 5 fractions to RUL apical [id number] SCC 03/20/20-03/24/20 Completed SBRT 50 Gy in 5 fraction for de taylor inferior RUL lesion 11/03/20 Apical lesion was again noted to have grown to 3.3 cm 11/2020 Underwent surgery for T1 vulvar SCC 05/09/21 Biopsy for inferior RLL lesion which was negative 05/22/21 Biopsy of apical RUL lesion with recurrent SCC [id number] stage IIB, pleural/pericardial involvement PFTs 03/08/21 FVC 2.0 FEV1 1.71 FEV1/FVC 75% pred Minimal obstruction Interval History Sister and HCP Jeana is on the phone. Estela has no specific complaints today, she is quite deliberate in her answers, but does respond appropriately to questions. It is unclear if she fully understands her situation based on limited recall of prior treatment/events. Jeana is adamant about treatment. The two suggest some difficulty with exertion and mobility, but no demetri dyspnea or cough. She lives at [facility]. Reports her appetite is good and her weight is stable. Past Medical History: COPD? Speech delay/delayed though processes Depression DMII HPL GERD Hypothyroidism Seizure Past Surgical History: Cataracts Family History: Father lung cancer Social History: 90 pack year former smoker Never drinker Allergies / Meds Allergies: Coded Allergies: loratadine (Verified Adverse Reaction, Mild, NERVOUS, 10/04/20) nicotine (Verified Adverse Reaction, Mild, PALPITATIONS, 10/04/20) Home Meds Reported Medications Metoprolol Succinate (Metoprolol Succinate) 25 Mg Tab.er.24h, 12.5 MG PO DAILY 05/09/21 Lorazepam (Lorazepam) 1 Mg Tablet, 0.5 MG PO Q12H PRN for ANXIETY/AGITATION Use sublingually if unable to swallow MDD = 3 mg 05/09/21 Ondansetron HCl (Ondansetron HCl) 8 Mg Tablet, 8 MG PO Q8H PRN for NAUSEA OR VOMITING 05/09/21 Albuterol Sulfate (Proair Hfa) 8.5 Gm Hfa.aer.ad, 2 PUFF INH Q4H PRN for SOB/WHEEZING, INHALER 05/09/21 Atorvastatin Calcium (Atorvastatin Calcium) 20 Mg Tablet, 20 MG PO QHS, TAB 05/09/21 Irbesartan (Irbesartan) 150 Mg Tablet, 150 MG PO DAILY, TAB 05/09/21 Aspirin (Aspirin EC) 81 Mg Tablet.dr, 81 MG PO DAILY 05/09/21 Umeclidinium Brm/Vilanterol Tr (Anoro Ellipta 62.5-25 Mcg INH) 1 Each Blst.w.dev, 1 PUFF INH DAILY 05/09/21 Multivitamins (Thera M Plus Tablet) 1 Each Tablet, 1 TAB PO DAILY, TAB 05/09/21 Glucagon,Human Recombinant (Glucagon Emergency Kit) 1 Mg Vial, 1 MG SC ASDIRECTED PRN for LOW BLOOD SUGAR, KIT 05/09/21 Sodium Phosphate,Coosa-Dibasic (Fleet Enema) 133 Ml Enema, 1 ANTIONETTE IA DAILY PRN for CONSTIPATION 05/09/21 Bisacodyl (Bisacodyl) 10 Mg Supp.rect, 10 MG IA DAILY PRN for CONSTIPATION, SUP 05/09/21 Magnesium Hydroxide (Milk of Magnesia) 400 Mg/5 Ml Oral.susp, 2400 MG PO DAILY PRN for CONSTIPATION 05/09/21 Oxycodone HCl (Oxycodone HCl) 5 Mg Tablet, 5 MG PO Q4H PRN for PAIN LEVEL 5-10, TAB 05/09/21 Acetaminophen (Acetaminophen) 325 Mg Tablet, 650 MG PO Q4H PRN for PAIN LEVEL 1- 5, TAB 05/09/21 Docusate Sodium (Docusate Sodium) 100 Mg Capsule, 100 MG PO QHS, CAP 05/09/21 Melatonin (Melatonin) 5 Mg Capsule, 5 MG PO QHS PRN for INSOMNIA, CAP 05/09/21 Divalproex Sodium (Divalproex Sodium ER) 500 Mg Tab.er.24h, 2000 MG PO QHS 07/23/20 Levothyroxine Sodium (Synthroid) 75 Mcg Tablet, 75 MCG PO DAILY, TAB 07/19/20 Lurasidone HCl (Latuda) 80 Mg Tablet, 80 MG PO QHS 07/19/20 Brimonidine Tartrate (Alphagan P) 0.1% 5ML Drops, 1 DROP OU BID 10/31/19 Review of Systems Constitutional: Reports: Fatigue; Denies: Chills, Fever, Weight Loss Eyes: Denies: Pain HEENT: Denies: Head Aches Skin: Denies: Rash Pulmonary: Denies: Dyspnea, Cough, Pleuritic Chest Pain Cardiovascular: Denies: Chest Pain, Palpitations Gastrointestinal: Denies: Nausea, Vomiting, Abdominal Pain Hematologic: Denies: Bruising, Bleeding Excessively Musculoskeletal: Denies: Neck pain, Arm pain, Back pain Neurological: Reports: Confusion; Denies: Weakness, Numbness Psych: Reports: Mood Normal, Memory Issues Vital Signs Wt 180 lbs T 97.3 P 82 RR 18 BP 110/63 O2 98% Pain 0 Fatigue 0 General Exam: Positive: Alert, Cooperative, No Acute Distress; Negative: Oriented Times Three Eye Exam: Positive: PERRLA, EOMI ENT EXAM: Positive: Mucous membr. moist/pink, Pharynx Normal Neck Exam: Negative: Thyromegaly, Lymphadenopathy Chest Exam: Positive: Clear to auscultation, Normal air movement; Negative: Rales, Rhonchi, Wheezing Heart Exam: Positive: Rate Normal, Regular Rhythm Abdomen Exam: Positive: Soft; Negative: Tenderness, Mass Extremity Exam: Negative: Edema, Tenderness Skin Exam: Positive: Nl turgor and temperature; Negative: Rash Neuro Exam: Positive: Normal Gait, Normal Speech, Cranial Nerves 3-12 NL Psych Exam: Positive: Mental status NL, Mood NL; Negative: Memory Intact Diagnostic and Laboratory Diagnostic Review Radiologic images, relevant labs and pathology reports were personally reviewed and discussed with Ms. Manuel. Assessment and Plan Impression Ms. Manuel is a 75 year old female former smoker with a history of vulvar cancer diagnosed in 2019 and managed surgically, as well as multiply recurrent NSCLC of the RUL first diagnosed in 2019 and s/p SBRT at [facility]. She is s/p recent re-biopsy of the RUL apical primary tumor on 05/22/21 which confirmed residual SCC. She is seen today for consideration of further reirradiation. Stage NSCLC RUL [id number] stage IIB Performance Status ECOG 2 Plan We had an extensive discussion with Ms. Manuel regarding the diagnosis at hand and available therapeutic options. She has a relatively poor performance status, due to her cognitive status. She is however fit enough for treatment of the RUL lesion which has recurred despite SBRT. It is now >4 cm in size on most recent imaging, it appears to erode the pericardial surface so I am calling it T3. Given the failure of this lesion to SBRT, I would advocate for concurrent chemoradiation, if she is deemed fit for weekly carbo/taxol. Jeana and Estela agreed to this approach tentatively after much discussion. She has yet to see medical oncology, but has a pending referral. She also has a pending PET-CT from Dr. Quevedo's office, this will be helpful to assess for mediastinal johnathan involvement, which if present would not change my plan. The nodes are stable appearing on the most recent CT chest we have, when compared to CT and PET-CT from the past 2 years. I will need to obtain her prior RT plans in DICOM form to plan the proposed course, I will request these. Depending on the prior dosimetry, and the dose to adjacent lung and brachial plexus I will aim for 60-70 Gy in 30-35 fractions with VMAT and a 4D planning CT to minimize PTV margins. For side effects, we discussed the risk of fatigue, pneumonitis and plexopathy. I am confident we will be able to develop a safe and effective plan. We discussed the logistics of receiving radiation therapy in detail including the need for a 1-time planning session. This can occur in the next 1-2 weeks. After discussing the risks, benefits and alternatives to radiation therapy, Ms. Manuel was amenable to pursuing radiotherapy. All questions were answered to the patient's satisfaction. We instructed the patient that if there were any questions,concerns or changes in clinical status in the interim to contact us. I will also refer her to our nurse navigator for rides/care coordination purposes given Estela lives at [facility] and her sister is [id number]. Recommendations Reirradiation 60-70 Gy in 30-35 fractions with VMAT Medical oncology consult for concurrent chemotherapy PET-CT as previously ordered Simulation in the coming 1-2 weeks Referral to nurse navigator Billing Statement Total time of [62] minutes was spent preparing for the visit [3], obtaining HPI [7], examining the patient [5], reviewing diagnostic tests [12], discussing management options [15], coordinating care [10], and writing this note [10]. MOUSTAPHA ARCE MD Jun 08, 2021 11:53
== END ==
LOC: M ONCR 09:53
PROVIDERS: ATTEND General Practice
DX: C34.31 Malignant neoplasm of lower lobe, right bronchus or lung (principal); E11.9 Type 2 diabetes mellitus without complications; E78.5 Hyperlipidemia, unspecified; F32.9 Major depressive disorder, single episode, unspecified; K21.9 Gastro-esophageal reflux disease without esophagitis; R56.9 Unspecified convulsions; Z79.890 Hormone replacement therapy; Z79.899 Other long term (current) drug therapy; Z80.0 Family history of malignant neoplasm of digestive organs; Z85.44 Personal history of malignant neoplasm of other female genital organs; Z87.891 Personal history of nicotine dependence; Z88.8 Allergy status to other drugs, medicaments and biological substances; Z91.09 Other allergy status, other than to drugs and biological substances; Z96.1 Presence of intraocular lens

== ENCOUNTER → 2021-06-11 | Outpatient (CLI) | payer MEDICARE, MEDICAID ==
--- NOTE | 2021-06-12 15:27 | REP ---
INDICATION: STAGING RIGHT UPPER LOBE CANCER. Right upper lobe needle biopsy of the lung positive for invasive squamous cell carcinoma. COMPARISON: Comparison chest CT study April 02, 2021.Comparison is made with images from PET-CT study dated 21 November 2020.. TECHNIQUE: Seventy-eight minutes following the intravenous injection of a 8.40 mCi dose of F-18 FDG, three-dimensional PET scintigraphy is acquired from the skull base to the proximal thighs. Triplanar noncontrast CT scanning is acquired through the same anatomic range for attenuation correction, and image registration with scan parameters optimized to minimize radiation exposure to the patient. PET scintigraphy and CT datasets were fused and displayed on a workstation with multiplanar and projection display capability. FINDINGS: Head and neck soft tissues are unremarkable. The known right upper lobe mass positioned anteriorly in the chest which was biopsy positive is hypermetabolic. Maximum standard uptake value today is 14.16. Previously, 15.62. It appears larger. The right lower lobe spiculated density which was also biopsied but biopsy negative shows borderline FDG accumulation, maximum standard uptake value 2.33. This is not in the hypermetabolic category. No other abnormal hypermetabolic pulmonary parenchymal uptake is seen. There is no abnormal hilar or mediastinal hypermetabolic uptake. No abnormal adrenal uptake is seen. In the abdomen and pelvis normal distribution of FDG is seen. No abnormal hypermetabolic abdominal or pelvic abnormality. IMPRESSION: The known biopsy proven malignant mass in the right upper lobe is quite hypermetabolic and has enlarged since the prior PET-CT. The spiculated lesion along the major fissure in the right lower lobe shows discernible but non hypermetabolic category uptake, SUV 2.33. No other abnormal hypermetabolic uptake is seen. <Electronically signed by Wojciech Jacobs > 06/12/21 [id number]
== END ==
LOC: M PLARAD 12:52
PROVIDERS: ATTEND Internal Medicine Pulmonary Disease
DX: C34.11 Malignant neoplasm of upper lobe, right bronchus or lung (principal)
CPT/HCPCS: 78815; A9552

== ENCOUNTER 2021-06-23 05:46 | Emergency (ER) | payer MEDICARE, MEDICAID ==
[~2021-06-23] VITALS: Ht 160 cm; Wt 75.0 kg
[2021-06-23] MEDS ORDERED: ACETAMINOPHEN TAB 650MG DOSE (2X325MG) PO ONE (07:00)
--- NOTE | 2021-06-23 07:36 | REPVR ---
PROCEDURE INFORMATION: Exam: CT Head Without Contrast Exam date and time: 06/23/2021 6:33 AM Age: 75 years old Clinical indication: Injury or trauma; Fall; Blunt trauma (contusions or hematomas); Additional info: Fall /back pain TECHNIQUE: Imaging protocol: Computed tomography of the head without contrast. Radiation optimization: All CT scans at this facility use at least one of these dose optimization techniques: automated exposure control; mA and/or kV adjustment per patient size (includes targeted exams where dose is matched to clinical indication); or iterative reconstruction. COMPARISON: PT PET/CT Skull/mid thigh 06/11/2021 3:05 PM FINDINGS: Brain: There is no acute intracranial hemorrhage. There is lucency in the cerebral white matter, likely microvascular disease although non-specific. Her white differentiation is intact. There are no extra-axial fluid collections. No evidence of mass. There is no mass effect or midline shift. Cerebral ventricles: The ventricles and sulci are enlarged, consistent with volume loss / atrophy. No hydrocephalus. Paranasal sinuses: Visualized sinuses are unremarkable. No fluid levels. Mastoid air cells: No significant mastoid effusion. Vasculature: There is vascular calcification. Bones/joints: No acute fracture. Soft tissues: Unremarkable as visualized. IMPRESSION: 1. No evidence of acute intracranial abnormality. No evidence of acute infarction, hemorrhage, or mass. 2. Atrophy and microvascular disease. Electronically signed by: Alyx Sanabria On 06/23/2021 07:36:21 AM
--- NOTE | 2021-06-23 07:45 | REPVR ---
PROCEDURE INFORMATION: Exam: CT Lumbar Spine Without Contrast Exam date and time: 06/23/2021 6:33 AM Age: 75 years old Clinical indication: Injury or trauma; Fall; Blunt trauma (contusions or hematomas); Additional info: Fall /back pain TECHNIQUE: Imaging protocol: Computed tomography images of the lumbar spine without contrast. Radiation optimization: All CT scans at this facility use at least one of these dose optimization techniques: automated exposure control; mA and/or kV adjustment per patient size (includes targeted exams where dose is matched to clinical indication); or iterative reconstruction. COMPARISON: PT PET/CT Skull/mid thigh 06/11/2021 3:05 PM FINDINGS: Vertebrae: There is no acute lumbar fracture. Bones appear demineralized. There is mild grade 1 anterolisthesis at L4-L5. There are degenerative changes with disc height loss, vacuum disc, facet degenerative changes, thickening of ligamentum flavum, mild anterior marginal osteophytes, and diffuse disc bulges. There is spinal stenosis which is greatest and likely moderate at L4-L5. There is lumbar dextroscoliosis. Thoracic findings are described on thoracic spine CT. Discs/Spinal canal/Neural foramina: See "Vertebrae" finding. Vasculature: Atherosclerotic change without aortic aneurysm. Soft tissues: Unremarkable. IMPRESSION: No acute lumbar fracture. Other findings as described. Electronically signed by: Alyx Sanabria On 06/23/2021 07:45:13 AM
--- NOTE | 2021-06-23 07:53 | REPVR ---
PROCEDURE INFORMATION: Exam: CT Thoracic Spine Without Contrast Exam date and time: 06/23/2021 6:33 AM Age: 75 years old Clinical indication: Injury or trauma; Fall; Blunt trauma (contusions or hematomas); Additional info: Fall /back pain TECHNIQUE: Imaging protocol: Computed tomography images of the thoracic spine without contrast. Radiation optimization: All CT scans at this facility use at least one of these dose optimization techniques: automated exposure control; mA and/or kV adjustment per patient size (includes targeted exams where dose is matched to clinical indication); or iterative reconstruction. COMPARISON: 1. PT PET/CT Skull/mid thigh 06/11/2021 3:05 PM 2. PT PET/CT Skull/mid thigh 11/21/2020 4:42:25 PM FINDINGS: Vertebrae: There is fracture T12 which is unchanged from both comparison PET CT. Sagittal recons were performed from the axial CT images of comparison study. No additional thoracic fracture. There is spondylosis. There does not appear to be significant spinal stenosis. Discs/Spinal canal/Neural foramina: See "Vertebrae" finding. Other bones/joints: Bones are demineralized. Soft tissues: Unremarkable. Lungs: There is large right middle lobe mass. There is adjacent epicardial lymph node. There is adjacent pulmonary infiltrate. Please see report of prior dedicated chest and malignancy workup evaluations. IMPRESSION: Unchanged nonacute fracture of T12. No acute thoracic spine fracture. Known lung mass. Electronically signed by: Alyx Sanabria On 06/23/2021 07:53:35 AM
[2021-06-23] MEDS ORDERED: D5W/0.45% SODIUM CHLORIDE 1,000 ML IV SCH (10:20)
[2021-06-23] MEDS ORDERED: LIDOCAINE 2% 5ML JELLY UROJET TOP ONE (10:50)
[2021-06-23 11:17] LABS: BASO # 0.1 10^3/uL (0.0-0.2); BASO % 0.7 % (0.0-1.0); EOS # 0.1 10^3/uL (0.0-0.5); EOS % 1.9 % (0.0-3.0); HEMATOCRIT 33.2 % (36.0-47.0); HEMOGLOBIN 11.1 g/dl (12.0-15.5); LYMPH # 1.5 10^3/uL (1.5-5.0); LYMPH % 20.5 % (24.0-44.0); MEAN CORPUSCULAR HEMOGLOBIN 29.4 pg (27.0-33.0); MEAN CORPUSCULAR HGB CONC 33.4 g/dl (32.0-36.5); MEAN CORPUSCULAR VOLUME 88.1 fl (80.0-96.0); MONO # 1.4 10^3/uL (0.0-0.8); MONO % 19.6 % (2.0-8.0); NEUTROPHILS # 4.1 10^3/uL (1.5-8.5); NEUTROPHILS % 56.9 % (36.0-66.0); PLATELET COUNT, AUTOMATED 342 10^3/uL (150-450); RED BLOOD COUNT 3.77 10^6/uL (4.00-5.40); WHITE BLOOD COUNT 7.2 10^3/uL (4.0-10.0)
[2021-06-23 11:32] LABS: RSV AMPLIFICATION NEGATIVE (NEGATIVE)
[2021-06-23 11:45] LABS: ALBUMIN 2.7 GM/DL (3.2-5.2); ALT/SGPT 17 U/L (12-78); BILIRUBIN,DIRECT 0.2 MG/DL (0.0-0.2); BILIRUBIN,TOTAL 0.4 MG/DL (0.2-1.0); CK-MB VALUE MASS < 1.0 NG/ML (<3.6); CPK CREATINE PHOSPHOKINASE 75 U/L (26-192); LIPASE 43 U/L (73-393); MB/CK RELATIVE INDEX 1.33 (< OR =4); NT-PRO BNP 612 PG/ML (<125); TOTAL PROTEIN 6.5 GM/DL (6.4-8.2); TROPONIN I < 0.02 NG/ML (< 0.10)
[2021-06-23 14:00] VITALS: BP 124/58
[2021-06-24] MEDS ORDERED: ATIV1TAB10 PO (08:44)
[2021-06-24] MEDS ORDERED: NYST10CR TOP (08:44)
--- NOTE | 2021-06-24 12:06 | ECGEPIP ---
[facility] - ED Test Date: 2021-06-23 Pat Name: MAITE BELLA Department: Room: - Gender: Female Flying Teacher: JEFF : 1945 Requested By: AUNDREA Trivedi PA-C Order Number: [id number] Reading MD: Veronica Garcia Measurements Intervals [place] Rate: 86 P: 46 VT: 178 QRS: -39 QRSD: 90 T: 16 QT: 394 QTc: 471 Interpretive Statements Normal sinus rhythm Left axis deviation NSTTW abnormalities prwp similar 10/31/19 Electronically Signed on 06-24-2021 12:05:29 EDT by Veronica Garcia
== END 2021-06-23 14:31 | disposition home or self-care (01) ==
LOC: M ED 05:46
DX: M54.9 Dorsalgia, unspecified (principal); S09.90XA Unspecified injury of head, initial encounter; W19.XXXA Unspecified fall, initial encounter; Y92.128 Other place in nursing home as the place of occurrence of the external cause; E11.9 Type 2 diabetes mellitus without complications; I10 Essential (primary) hypertension; E03.9 Hypothyroidism, unspecified; E78.5 Hyperlipidemia, unspecified; F31.9 Bipolar disorder, unspecified; F41.9 Anxiety disorder, unspecified; H40.9 Unspecified glaucoma; Z79.899 Other long term (current) drug therapy; Z79.82 Long term (current) use of aspirin; Z79.890 Hormone replacement therapy; Z88.8 Allergy status to other drugs, medicaments and biological substances; Z91.048 Other nonmedicinal substance allergy status; F17.210 Nicotine dependence, cigarettes, uncomplicated

== ENCOUNTER 2021-06-24 08:21 | Inpatient (IN) | payer MEDICARE, MEDICAID ==
[~2021-06-24] VITALS: Ht 165.1 cm; Wt 82.5 kg
[2021-06-24] MEDS ORDERED: IPRATROPIUM 0.5MG/ALBUTEROL 2.5MG INH SOL UD 3ML (DUONEB) NEB ONE (08:35)
[2021-06-24] MEDS ORDERED: methylPREDNISolone 125MG 2ML VIAL IV ONE (08:35)
[2021-06-24] MEDS ORDERED: ALBUTEROL SULFATE 2.5 MG/0.5 ML INH NEB SOLN INH ONE (08:35)
[2021-06-24] MEDS ORDERED: NYST10CR TOP (08:44)
[2021-06-24] MEDS ORDERED: ATIV1TAB10 PO (08:44)
[2021-06-24] MEDS ORDERED: HOME MED LIST COMPLETE! XX SCH (08:45)
--- NOTE | 2021-06-24 09:25 | REP ---
INDICATION: DYSPNEA/COUGH. COMPARISON: Portable chest studies dated 05/09/2021 and 05/22/2021 TECHNIQUE: Portable AP chest with the patient sitting. FINDINGS: The known left hilar mass is unchanged. There is no acute infiltrate or pleural effusion. There is no pneumothorax. There is no pleural effusion. The lung moe are otherwise unchanged. Cardiac size is normal. The left hilus, mediastinum, and skeletal structures are unremarkable. IMPRESSION: The known right hilar mass is unchanged. There is no pneumothorax or pleural fluid collection. No interval change. <Electronically signed by Celso Hernandez > 06/24/21 [id number]
[2021-06-24 09:36] LABS: BASO # 0.1 10^3/uL (0.0-0.2); BASO % 0.6 % (0.0-1.0); EOS % 0.1 % (0.0-3.0); HEMATOCRIT 34.8 % (36.0-47.0); HEMOGLOBIN 11.5 g/dl (12.0-15.5); LYMPH # 0.9 10^3/uL (1.5-5.0); LYMPH % 9.8 % (24.0-44.0); MEAN CORPUSCULAR HEMOGLOBIN 28.9 pg (27.0-33.0); MEAN CORPUSCULAR VOLUME 87.4 fl (80.0-96.0); MONO # 1.2 10^3/uL (0.0-0.8); MONO % 13.8 % (2.0-8.0); NEUTROPHILS # 6.8 10^3/uL (1.5-8.5); NEUTROPHILS % 75.1 % (36.0-66.0); PLATELET COUNT, AUTOMATED 366 10^3/uL (150-450); RED BLOOD COUNT 3.98 10^6/uL (4.00-5.40)
[2021-06-24 10:12] LABS: ACETAMINOPHEN LEVEL < 2.0 UG/ML (10.0-30.0); ALBUMIN 2.7 GM/DL (3.2-5.2); ALT/SGPT 19 U/L (12-78); BILIRUBIN,DIRECT 0.2 MG/DL (0.0-0.2); BILIRUBIN,TOTAL 0.4 MG/DL (0.2-1.0); CK-MB VALUE MASS < 1.0 NG/ML (<3.6); CPK CREATINE PHOSPHOKINASE 69 U/L (26-192); ETHYL ALCOHOL (ETHANOL) < 0.003 % (0.000-0.010); FREE T4 1.33 NG/DL (0.76-1.46); MAGNESIUM LEVEL 1.8 MG/DL (1.8-2.4); MB/CK RELATIVE INDEX 1.45 (< OR =4); NT-PRO BNP 480 PG/ML (<125); SALICYLATE LEVEL < 1.7 MG/DL (5.0-30.0); THYROXINE (T4) 10.6 UG/DL (4.5-12.0); TOTAL PROTEIN 7.1 GM/DL (6.4-8.2); TROPONIN I < 0.02 NG/ML (< 0.10)
--- NOTE | 2021-06-24 11:02 | REPVR ---
PROCEDURE INFORMATION: Exam: CT Head Without Contrast Exam date and time: 06/24/2021 10:27 AM Age: 75 years old Clinical indication: Altered mental status/memory loss TECHNIQUE: Imaging protocol: Computed tomography of the head without contrast. Radiation optimization: All CT scans at this facility use at least one of these dose optimization techniques: automated exposure control; mA and/or kV adjustment per patient size (includes targeted exams where dose is matched to clinical indication); or iterative reconstruction. COMPARISON: CT Head without contrast 06/23/2021 6:23 AM FINDINGS: Brain: There is moderate ill-defined patchy hypodensity within the bilateral cerebral periventricular white matter, consistent with chronic microvascular ischemic changes. There is moderate diffuse cerebral atrophy present, consistent with this patient's age. Cerebral ventricles: The ventricular system demonstrates moderate diffuse compensatory enlargement. Paranasal sinuses: Visualized sinuses are unremarkable. No fluid levels. Mastoid air cells: Visualized mastoid air cells are well aerated. Vasculature: There is atherosclerotic calcification of the bilateral cavernous carotid arteries. Bones/joints: Unremarkable. No acute fracture. Soft tissues: Unremarkable. IMPRESSION: 1. No acute infarction, masses or hemorrhage is seen. No acute intracranial abnormality is identified. 2. Diffuse age-related cerebral atrophy and moderate chronic microvascular white matter ischemic changes, without evidence of an acute intracranial abnormality. 3. Nya Stroke Program Early CT Score (ASPECTS) = 10 4. There has been no adverse interval change since the previous study. Electronically signed by: Taurus Marquis On 06/24/2021 11:02:42 AM
[2021-06-24] MEDS ORDERED: ISOVUE-370 76% 100ML VIAL As Ordered ONE (11:22)
--- NOTE | 2021-06-24 12:39 | REP ---
INDICATION: hypoxia. COMPARISON: Chest CT without IV contrast dated 04/02/2021. TECHNIQUE: Chest CT with IV contrast. FINDINGS: There is a right upper lobe paramediastinal mass measuring 4.9 cm maximal diameter. On the comparison study this measured 3.6 cm. There is a 2.5 cm nodule posterolaterally in the posterior segment of the right upper lobe on image 46. This previously measured 2.1 cm. There is diffuse interstitial coarsening as an interval change. There are no pleural effusions. There is dependent atelectasis in the posterior lung moe. There are no focal infiltrates. The thoracic aorta is unremarkable. The cardiac size appears mildly enlarged and has increased from the prior study. There is no pericardial effusion. There is no mediastinal, hilar or axillary lymphadenopathy. Upper abdomen: The adrenals and renal upper poles are unremarkable. The visualized hepatic parenchyma, gallbladder, pancreas and spleen are unremarkable. There is significant beam hardening artifact throughout the study is a consequence of the patient scanned with arms at sides. IMPRESSION: The patient's known 2 right lung nodules have increased in size. There is diffuse interstitial coarsening as an interval change. Cardiac size is slightly enlarged as an interval change. There are no pleural effusions. No adenopathy. Significant beam hardening artifact throughout the study as a consequence of patient scanned with arms at sides. <Electronically signed by Celso Hernandez > 06/24/21 [id number]
[2021-06-24] MEDS ORDERED: DEXTROSE 50% 50 ML SYRINGE IV PRN ×2 (12:50→12:55)
[2021-06-24] MEDS ORDERED: IPRATROPIUM 0.5MG/ALBUTEROL 2.5MG INH SOL UD 3ML (DUONEB) NEB PRN (12:50)
[2021-06-24] MEDS ORDERED: GLUCOSE 4GM CHEW TABLET PO PRN (12:50)
[2021-06-24] MEDS ORDERED: GLUCAGON INJ 1MG VIAL SC PRN (12:50)
[2021-06-24] MEDS ORDERED: D5W/0.45% SODIUM CHLORIDE 1,000 ML IV SCH (12:50)
[2021-06-24] MEDS ORDERED: ENOXAPARIN 40MG/0.4ML SYRINGE (J1650 PER 10MG) SC ONE (13:00)
--- NOTE | 2021-06-24 14:39 | HPE ---
HISTORY AND PHYSICAL DATE OF ADMISSION: 06/24/2021 CHIEF COMPLAINT: Confusion, fall, fatigue, shortness of breath. HISTORY OF PRESENT ILLNESS: The patient is demented with acute delirium and unable to provide any history or review of systems. Information is obtained from the patient's ER visit on 06/23/2021 and medical records. This is a 75-year-old female with history of a 90 pack year history of smoking, follows with Dr. Quevedo, pulmonary associates, history of vulvar cancer diagnosed in 2019 managed surgically and recurrent non-small cell lung cancer of the right upper lobe initially diagnosed in 2019, status post SBRT at [facility] x2 with recent biopsy in the right upper lobe apical primary tumor on 05/22/2021 with confirmed residual SCC. The patient is being evaluated for chemotherapy and radiation at [facility] and was recently seen by Dr. Walker on 06/08/2021 with plans for carbo/Taxol concurrent chemoradiation and referral to medical oncologist and PET scan to be done. The patient along with her health care proxy, Jeana and patient's sister agreed to medical oncology referral for chemotherapy, PET scan as outpatient, simulation and reirradiation in 1-2 weeks time. The patient was brought to the ER from [facility] site on 06/23/2021 because of a fall when patient was found to have her head wedged under the recliner, complained of 10/10 mid-back pain. This was unwitnessed. She was evaluated in the emergency room with CT of the cervical spine and thoracic spine which showed a nonsurgical, nonacute fracture of T12 with no acute thoracic spine fracture and known lung mass. Lumbar spine CT showed no acute lumbar fracture. CT of the head on 06/23/2021 had no evidence of acute intracranial abnormality. The patient was sent back to [facility] from the emergency room after pain was controlled. EKG at that time showed nonspecific ST-T changes with sinus rhythm and was referred to orthopedic surgery as an outpatient for followup of chronic pain. She then was brought in today because of worsening confusion, inability to ambulate and care for herself at [facility]. She is unable to provide a review of systems and per EMS staff, was unable to sit the patient up and ambulate her. She had been taking oxycodone for pain. She appeared to be hypoxic with O2 saturation of 85% on room air and with two liters, oxygen saturation increased to 97%. She was with chronic baseline dementia, drowsy but answers questions very slowly and did not have to be reversed with Narcan. In the ER, she was found to be hypoxic 85% on room air, sent for CT chest to rule out pulmonary embolism. Due to altered mental status and shortness of breath, the patient is at risk of possible recent aspiration. Therefore, she was kept NPO on IV fluids with a swallow evaluation pending for Friday. Hospitalist was asked to admit the patient for acute delirium on chronic dementia, recurrent falls, inability to ambulate and recurrent lung cancer, undergoing radiation and with plans for chemotherapy. Repeat CT of the head in the ER showed no acute infarct, mass or hemorrhage, no intracranial abnormality seen with chronic microvascular white matter ischemic changes. PAST MEDICAL HISTORY: 1. SIADH. 2. Hyponatremia. 3. Non-small cell lung cancer, right upper lobe diagnosed in 2018, status post SBRT at [place] [id number] with rebiopsy showing residual SCC on 05/22/2021 with plans for radiation and chemotherapy with carbo, Taxol and medical oncology referral. 4. Patient has history of vulvar cancer in diagnosed in 2019 managed surgically. 5. She is a former smoker with 90 pack year history of smoking. 6. Longstanding type 2 diabetes. 7. Hypertension. 8. Dyslipidemia. 9. Depression. 10. Bipolar disorder on chronic divalproex sodium managed by psychiatrist. 11. Chronic back pain with nonacute fracture of the thoracic spine. 12. Hypothyroidism. 13. Bipolar disorder with depression. 14. Schizophrenia. 15. Dyslipidemia. 16. Ectopic . 17. Speech delay. PAST SURGICAL HISTORY: 1. Cataract surgery. 2. Vulvar cancer treated with surgical resection. 3. Biopsy of the right upper lobe of the lung, 05/22/2021. SOCIAL HISTORY: Patient lives at [facility] assisted living. She has a healthcare proxy, Jeana, who is her daughter. She does have a MOLST form with advanced directive. She is not a DNR and remains a full code. No social alcohol use, no recreational drug use, retired. HOME MEDICATIONS: 1. Acetaminophen 650 q.4 as needed. 2. Albuterol two puffs q.4 as needed. 3. Aspirin 81 daily. 4. Atorvastatin 20 daily. 5. Alphagan eye drops, one OU b.i.d. 6. Divalproex acid 2 gm q.h.s. 7. Colace 100 q.h.s. 8. Irbesartan 150 daily. 9. Synthroid 75 mcg daily. 10. Ativan 0.5 q.12 as needed for anxiety. 11. Lurasidone Latuda 80 mg q.h.s. 12. Milk of Mag as needed. 13. Metoprolol 12.5 daily. 14. Multivitamin one tablet daily. 15. Nystatin topically b.i.d. 16. Zofran 8 mg q.8 as needed. 17. Oxycodone 5 q.4. 18. Melatonin 5 q.h.s. 19. Anoro Ellipta one puff inhaled daily. FAMILY HISTORY: Noncontributory due to advanced age but father with lung cancer and brain tumor. REVIEW OF SYSTEMS: Could not be obtained, 10-point review of systems since the patient has acute delirium and chronic dementia. Review of systems is obtained from patient's medical records and senior care staff documentation. PHYSICAL EXAMINATION: VITAL SIGNS: Temperature 98.9, pulse 99 to 104, sinus tachycardia, respiratory rate 18, blood pressure 116/57, 94% on four liters nasal cannula, documented to have O2 saturation of 85% per EMS on room air. GENERAL: The patient is confused. She knows her name. She tries to answer questions and appears to be appropriate. The patient has slow speech. She has dry eyes, no conjunctival injection, pallor, icterus, jaundice. Extraocular muscles intact, no JVD, thyromegaly, dry mucous membranes. No stridor. No use of respiratory accessory muscles. Slow to speak but appropriate. HEART: S1, S2, sinus tachycardia. No murmurs noted. LUNGS: Diminished with fine crackles bilaterally. ABDOMEN: Soft, nontender and nondistended. Positive bowel sounds x4 quadrants. EXTREMITIES: No cyanosis or clubbing. NEUROLOGICAL: Awake, alert, oriented to person only, very slow to respond. Face is symmetric. Tongue is midline. Motor function is 4/5 x4 extremities. Gait was not tested. No sensory disturbance. No focal deficits. Some slight dysmetria on finger to nose testing she attributes to fatigue. Awake, alert, oriented only to herself. EKG: Sinus rhythm, no acute ST-T wave abnormalities, left axis deviation. LABORATORY DATA: White count 9, hemoglobin 11, hematocrit 34, platelet count 366. Sodium 134, potassium 4.4, chloride 99, bicarb 25. BUN 21, creatinine 0.5, glucose 157. pH of 7.48, CO2 34, O2 74, bicarb of 26, ammonia level of 46. Coronavirus 19 is negative. Blood cultures have been sent. IMAGING STUDIES: CT of the head, 06/24: No acute abnormality. CT, chest pending. Chest x-ray: Right hilar mass, no pneumothorax or fluid collection. CT, thoracic spine, 06/23/21: No acute thoracic fracture, nonacute fracture of T12, no lung mass. ASSESSMENT AND PLAN: This is a 75-year-old female with recurrent non-small cell lung cancer being evaluated for radiation therapy with referral to medical oncology for chemotherapy with carbo and Taxol, 90 pack year history of smoking, hypertension, diabetes, hyperlipidemia, metabolic syndrome, no diagnosis of COPD or emphysema, obesity, BMI of 30, bipolar disorder with depression with a nonacute fracture of T12, seen in the ER on 06/23/2021 for back pain and on baseline dementia, sent to back to [facility] assisted living, returns today with worsening confusion and inability to ambulate. Patient was found to be hypoxic, 85% on room air at [facility] by EMS and was brought in for further evaluation. Coronavirus is negative. The patient was given IV Solu-Medrol in the emergency room. The patient's altered mental status was thought to be due to polypharmacy with continued use of pain medications for her back pain with oxycodone along with her chronic medications. The patient is admitted for the following acute issues: 1. Acute hypoxic respiratory failure, may be due to COPD exacerbation. CT of chest has been ordered to rule out pulmonary embolism, early pneumonia or fluid overload. The patient's BMP is not impressive and unlikely to be fluid overloaded. There is a question of possible aspiration due to altered mental status. Therefore, she will be kept NPO with swallow evaluation in the morning and judicious use of IV fluids to prevent hypoglycemia and dehydration but monitor for fluid overload. The patient will be kept on Solu-Medrol 50 mg IV q.8 hourly nebulizer treatment q.4 with q.1 as needed. Ceftriaxone for now IV q.24 hours until formal report of CT chest has been noted. 2. [id number] acute delirium on baseline dementia. Patient's oxycodone will be discontinued. A Flector patch will be given for her back. We will check UA, urine C&S. Blood cultures have been sent, IV ceftriaxone for anti-inflammatory effect for COPD exacerbation, awake formal result of CT chest. COVID-19 is negative. If patient develops a cough, check a sputum culture, urine Legionella and urine Streptococcus antigen if positive pneumonia seen on CT, chest. 3. Recurrent non-small cell lung cancer. The patient is being evaluated for reirradiation by Dr. Walker, radiation oncologist with outpatient referral to the [facility] for carbo/Taxol concurrent chemotherapy. Patient has poor overall prognosis and we will need the patient's MOLST form from her primary care physician or family regarding her code status. She remains with guarded prognosis with chronic comorbid conditions and recurrent lung cancer. Titrate oxygen to keep saturations above 90%. 4. Hypertension. Resume on home medications, Avapro. 5. Type 2 diabetes. Continue on sliding scale insulin, hypoglycemic protocol, D5 half normal while waiting for swallow evaluation to rule out aspiration. 6. Dyslipidemia. Continue on Lipitor. 7. Chronic dementia. At this time, the patient is not appropriate for assisted living. She has decompensated very quickly. She will need PT, OT evaluation for recurrent falls and debility. 8. History of vulvar cancer, surgically treated. 9. Hypothyroidism. Continue on Synthroid. 10. Bipolar disorder on chronic Depakote. 11. History of cataract surgery on Alphagan. 12. Code status. At this time, patient is a FULL CODE. Obtain records from Dr. Esther Melo' office regarding her MOLST form or the family and we will change patient's code status once documentation has been provided. She is currently confused, unable to provide much history. 13. DVT prophylaxis with compression stockings and Lovenox. 14. Activity as tolerated, fall precautions and assisted ambulation only. 15. Diet: NPO due to aspiration risk from altered mental status, swallow evaluation in the morning. MTDD
[2021-06-24] MEDS: IPRATROPIUM 0.5MG/ALBUTEROL 2.5MG INH SOL UD 3ML (DUONEB) NEB SCH ×2 (15:46→20:03)
[2021-06-24 16:00] VITALS: BP 115/73
[2021-06-24] MEDS: methylPREDNISolone 125MG 2ML VIAL IV SCH ×2 (16:35→21:46)
[2021-06-24] MEDS: cefTRIAXone SOD 2 GM in D5W MINI-BAG PLUS 50 ML IV SCH (16:45)
[2021-06-24] MEDS ORDERED: NITROGLYCERIN 0.4 MG SUBL TABLET SL PRN (17:10)
[2021-06-24] MEDS ORDERED: NITROGLYCERIN 0.4 MG SUBL TABLET SL STA (17:10)
[2021-06-24 17:28] VITALS: BP 115/73
[2021-06-24] MEDS: HumaLOG INSULIN (NovoLOG) PER UNIT SC SCH (17:29)
[2021-06-24] MEDS ORDERED: MIDODRINE 5 MG TAB PO ONE (17:30)
[2021-06-24] MEDS ORDERED: MORPHINE 4 MG/ML 1ML VIAL/SYRINGE (J2270) IV ONE (17:45)
[2021-06-24] MEDS ORDERED: LACTULOSE 20 GM/30 ML SYRUP UD PR ONE (18:00)
[2021-06-24] MEDS ORDERED: GI COCKTAIL 50ML BTL(HYOSCYAMINE/MAALOX/LIDOCAINE VISCOUS)(1:3:1) PO ONE (18:00)
[2021-06-24 18:25] LABS: CK-MB VALUE MASS < 1.0 NG/ML (<3.6); CPK CREATINE PHOSPHOKINASE 56 U/L (26-192); MB/CK RELATIVE INDEX 1.79 (< OR =4); TROPONIN I < 0.02 NG/ML (< 0.10)
[2021-06-24] MEDS ORDERED: LACTULOSE 20 GM/30 ML SYRUP UD PO ONE (18:30)
[2021-06-24] MEDS: ANALGESIC BALM CRM 3OZ TOP SCH ×2 (18:52→21:46)
[2021-06-24] MEDS ORDERED: SOD POLYSTYRENE SULFONATE SUSP 15 GM/60 ML UD PO SCH (19:00)
--- NOTE | 2021-06-24 20:25 | ECGEPIP ---
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
[2021-06-24] MEDS: DICLOFENAC EPOLAMINE 1.3 % PATCH TOP SCH (21:00)
[2021-06-24] MEDS: BRIMONIDINE 0.1% OPHTH SOLN 5 ML OU SCH (21:00)
[2021-06-24] MEDS: DIVALPROEX 500MG *ER* TAB PO SCH ×2 (21:00→21:46)
[2021-06-24] MEDS: LURASIDONE HCL 40 MG TAB (LATUDA) PO SCH (21:46)
[2021-06-24 22:00] VITALS: BP 114/64
[2021-06-25] MEDS: HumaLOG INSULIN (NovoLOG) PER UNIT SC SCH ×5 (00:47→23:28)
[2021-06-25] MEDS: IPRATROPIUM 0.5MG/ALBUTEROL 2.5MG INH SOL UD 3ML (DUONEB) NEB SCH ×7 (04:00→23:21)
[2021-06-25] MEDS: methylPREDNISolone 125MG 2ML VIAL IV SCH ×4 (04:37→21:22)
[2021-06-25] MEDS: LEVOTHYROXINE 75MCG TABLET (0.075MG) PO SCH (05:17)
[2021-06-25 06:00] VITALS: BP 107/54
[2021-06-25 07:11] LABS: BASO % 0.1 % (0.0-1.0); HEMOGLOBIN 11.8 g/dl (12.0-15.5); LYMPH # 0.6 10^3/uL (1.5-5.0); LYMPH % 6.5 % (24.0-44.0); MEAN CORPUSCULAR HEMOGLOBIN 29.4 pg (27.0-33.0); MEAN CORPUSCULAR HGB CONC 32.8 g/dl (32.0-36.5); MEAN CORPUSCULAR VOLUME 89.6 fl (80.0-96.0); MONO # 0.5 10^3/uL (0.0-0.8); MONO % 5.7 % (2.0-8.0); NEUTROPHILS # 7.7 10^3/uL (1.5-8.5); NEUTROPHILS % 87.1 % (36.0-66.0); PLATELET COUNT, AUTOMATED 289 10^3/uL (150-450); RED BLOOD COUNT 4.02 10^6/uL (4.00-5.40); WHITE BLOOD COUNT 8.8 10^3/uL (4.0-10.0)
[2021-06-25 07:37] LABS: HEMOGLOBIN A1c 7.1 %
[2021-06-25 07:50] LABS: BLOOD UREA NITROGEN 20 MG/DL (7-18); CARBON DIOXIDE LEVEL 24 MEQ/L (21-32); CHLORIDE LEVEL 100 MEQ/L (98-107); GLOMERULAR FILTRATION RATE > 60.0 (>39); GLUCOSE, FASTING 175 MG/DL (70-100); MAGNESIUM LEVEL 2.1 MG/DL (1.8-2.4); POTASSIUM SERUM 3.7 MEQ/L (3.5-5.1); SODIUM LEVEL 134 MEQ/L (136-145); THYROID STIMULATING HORMONE 0.914 uIU/ML (0.358-3.740)
[2021-06-25] MEDS: DICLOFENAC EPOLAMINE 1.3 % PATCH TOP SCH ×2 (09:00→20:19)
[2021-06-25] MEDS: BRIMONIDINE 0.1% OPHTH SOLN 5 ML OU SCH ×2 (09:00→20:23)
[2021-06-25] MEDS ORDERED: IRBESARTAN 150MG TAB PO SCH (09:00)
[2021-06-25] MEDS ORDERED: METOPROLOL SUCC *XL* 12.5MG PER 1/2 TAB (TopROL *XL*) PO SCH (09:00)
[2021-06-25] MEDS: LACTULOSE 20 GM/30 ML SYRUP UD PO SCH ×3 (09:07→12:26)
[2021-06-25] MEDS: ATORVASTATIN 20 MG TAB PO SCH (09:07)
[2021-06-25] MEDS: ASPIRIN 81MG ENTERIC TABLET PO SCH (09:07)
[2021-06-25] MEDS: MULTIVITAMINS/MINERALS THERAP 1 TAB PO SCH (09:07)
[2021-06-25] MEDS: ENOXAPARIN 40MG/0.4ML SYRINGE (J1650 PER 10MG) SC SCH (09:08)
[2021-06-25] MEDS: ANALGESIC BALM CRM 3OZ TOP SCH ×4 (09:08→20:19)
--- NOTE | 2021-06-25 12:47 | IPNPDOC ---
Date Seen The patient was seen on 06/25/21. Progress Note S: mentation improved back to baseline. sob better denies cough, chills, fever, n/v. "I want to eat and drink." awaiting speech eval to rule out aspiration. O: PE: vitals: see below GENERAL: no distress still w nc o2. aaox 2 HEENT: no jvd. moist mm . no stridor . no conversational dyspnea. speech is fluent and appropriate. improved from yesterday HEART: S1, S2,RRR no S3. nondisplaced PMI. LUNGS: CTAB. no adventitious breath sounds. no w/r/r. ABDOMEN: Soft, nontender and nondistended. Positive bowel sounds x4 quadrants. EXTREMITIES: No cyanosis or clubbing. NEUROLOGICAL: Awake, alert, oriented to person and place face is symmetric. speech is fluent. gait not tested. no sensory disturbance. 5/5 motor x4 extremities. gait not tested. EKG: Sinus rhythm, no acute ST-T wave abnormalities, left axis deviation. LABORATORY DATA: see below IMAGING STUDIES: CT of the head, 06/24: No acute abnormality. CT, chest pending. Chest x-ray: Right hilar mass, no pneumothorax or fluid collection. CT, thoracic spine, 06/23/21: No acute thoracic fracture, nonacute fracture of T12, no lung mass. ASSESSMENT AND PLAN: This is a 75-year-old female with recurrent non-small cell lung cancer being evaluated for radiation therapy with referral to medical oncology for chemotherapy with carbo and Taxol, 90 pack year history of smoking, hypertension, diabetes, hyperlipidemia, metabolic syndrome, no diagnosis of COPD or emphysema, obesity, BMI of 30, bipolar disorder with depression with a nonacute fracture of T12, seen in the ER on 06/23/2021 for back pain and on baseline dementia, sent to back to [facility] assisted living, returns today with worsening confusion and inability to ambulate. Patient was found to be hypoxic, 85% on room air at [facility] by EMS and was brought in for further evaluation. Coronavirus is negative. The patient was given IV Solu-Medrol in the emergency room. The patient's altered mental status was thought to be due to polypharmacy with continued use of pain medications for her back pain with oxycodone along with her chronic medications. The patient is admitted for the following acute issues: Acute hypoxic respiratory failure -due to opioid-induced respiratory depression, in the setting of an acute copd exacerbation and recurrent lung cancer -keep o2 sat>90% COPD exacerbation. -on iv solumedrol, nebs, abx, supplemental oxygen [id number] acute delirium on baseline dementia. -due to opioid -induced sedation -avoid narcotics and sedative Recurrent non-small cell lung cancer. -[facility] Dr. Walker consulted. Dyslipidemia. Continue on Lipitor. History of vulvar cancer, surgically treated. Hypothyroidism. Continue on Synthroid. Bipolar disorder on chronic Depakote. History of cataract surgery on Alphagan. DVT prophylaxis with compression stockings and Lovenox. Activity as tolerated, fall precautions and assisted ambulation only. Diet: NPO due to aspiration risk from altered mental status, swallow evaluation VS, I&O, 24H, Fishbone Vital Signs/I&O Vital Signs Date Time Temp Pulse Resp B/P (MAP) Pulse Ox O2 Delivery O2 Flow Rate FiO2 06/25/21 11:32 60 18 06/25/21 06:00 96.1 107/54 (71) 92 High Flow Cannula 2.0 I&O- Last 24 Hours up to 6 AM 06/25/21 06:00 Intake Total 120 ml Output Total 0 ml Balance 120 ml Laboratory Data 24H LABS Laboratory Tests 2 06/24/21 16:48: Bedside Glucose (Misc Panel) 208H 06/24/21 17:30: Total Creatine Kinase 56, Creatine Kinase MB < 1.0, Creatine Kinase MB Relative Index 1.79, Troponin I < 0.02 06/24/21 21:52: Bedside Glucose (Misc Panel) 201H 06/24/21 22:54: Ammonia 51H 06/25/21 00:43: Bedside Glucose (Misc Panel) 189H 06/25/21 05:00: Bedside Glucose (Misc Panel) 178H 06/25/21 06:33: Immature Granulocyte % (Auto) 0.6, Neutrophils (%) (Auto) 87.1H, Lymphocytes (%) (Auto) 6.5L, Monocytes (%) (Auto) 5.7, Eosinophils (%) (Auto) 0.0, Basophils (%) (Auto) 0.1, Neutrophils # (Auto) 7.7, Lymphocytes # (Auto) 0.6L, Monocytes # (Auto) 0.5, Eosinophils # (Auto) 0.0, Basophils # (Auto) 0.0, Nucleated Red Blood Cells % (auto) 0.0, Anion Gap 10, Glomerular Filtration Rate > 60.0, Estimated Mean Plasma Glucose 157H, Hemoglobin A1c 7.1, Calcium Level 9.0, Magnesium Level 2.1, Ammonia 36H, Thyroid Stimulating Hormone (TSH) 0.914 06/25/21 11:36: Bedside Glucose (Misc Panel) 235H 06/25/21 12:21: Bedside Glucose (Misc Panel) 236H CBC/BMP Laboratory Tests 06/25/21 06:33 Microbiology Microbiology 06/24/21 Blood Culture - Preliminary, Resulted No growth after 24 hours . All specim... 06/24/21 Respiratory Virus Panel (PCR) (RUSSELL) - Final, Complete 06/24/21 Blood Culture - Preliminary, Resulted No growth after 24 hours . All specim... CANDACE CANALES MD Jun 25, 2021 12:47
--- NOTE | 2021-06-25 13:09 | RADENCPD ---
Date/Time of Encounter Date of Encounter: Jun 25, 2021 Time of Encounter: 12:45 Encounter I visited briefly with Estela at bedside. She is tearful. She is alert but disoriented. I note she is receiving lactulose for elevated ammonia levels. Ammonia is down-trending. Hopefully her mental status will improve in the next 24 hours. I reviewed her imaging which re-domonstrates the RUL lesions. Overall the study is marred by some motion artifact so I don't make much of reported size changes. We had hoped to perform her simulation for reirradiation of the larger right lung mass last week, but this was delayed. She is on our schedule for Friday of this week (06/27/21), which given her current state and expected improvement is reasonable. I called Jeana (sister) and provided an update of the plan. Plan: Simulation on 06/27/21, can be conducted on inpatient or outpatient basis MOUSTAPHA ARCE MD Jun 25, 2021 13:09
[2021-06-25 14:15] VITALS: BP 115/63
[2021-06-25] MEDS: cefTRIAXone SOD 2 GM in D5W MINI-BAG PLUS 50 ML IV SCH (14:53)
--- NOTE | 2021-06-25 19:53 | ECGEPIP ---
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 Extreme left axis deviation - left anterior hemiblock Incomplete LBBB Prominent voltage aVL - LEFT VENTRICULAR HYPERTROPHY by Chilo criteria Poor precordial R wave progression may be due to left anterior hemiblock; rule o out prior septal infarction Subtle inferior T wave flattening No change from earlier the same day Electronically Signed on 06-25-2021 19:53:13 EDT by Anthony Padilla
[2021-06-25] MEDS: DIVALPROEX 500MG *ER* TAB PO SCH (20:18)
[2021-06-25] MEDS: LURASIDONE HCL 40 MG TAB (LATUDA) PO SCH (20:18)
[2021-06-25 22:00] VITALS: BP 110/56
[2021-06-26] MEDS: IPRATROPIUM 0.5MG/ALBUTEROL 2.5MG INH SOL UD 3ML (DUONEB) NEB SCH ×5 (03:25→20:00)
[2021-06-26] MEDS: LEVOTHYROXINE 75MCG TABLET (0.075MG) PO SCH (05:18)
[2021-06-26] MEDS: methylPREDNISolone 125MG 2ML VIAL IV SCH ×2 (05:18→10:02)
[2021-06-26] MEDS: HumaLOG INSULIN (NovoLOG) PER UNIT SC SCH ×5 (05:22→21:00)
[2021-06-26 06:00] VITALS: BP 114/49
[2021-06-26 06:16] LABS: BASO % 0.1 % (0.0-1.0); HEMATOCRIT 33.4 % (36.0-47.0); HEMOGLOBIN 11.2 g/dl (12.0-15.5); LYMPH # 0.9 10^3/uL (1.5-5.0); LYMPH % 5.2 % (24.0-44.0); MEAN CORPUSCULAR HEMOGLOBIN 29.5 pg (27.0-33.0); MEAN CORPUSCULAR HGB CONC 33.5 g/dl (32.0-36.5); MEAN CORPUSCULAR VOLUME 87.9 fl (80.0-96.0); MONO # 0.7 10^3/uL (0.0-0.8); NEUTROPHILS # 15.2 10^3/uL (1.5-8.5); NEUTROPHILS % 89.9 % (36.0-66.0); WHITE BLOOD COUNT 16.9 10^3/uL (4.0-10.0)
[2021-06-26 06:20] LABS: PLATELET COUNT, AUTOMATED 398 10^3/uL (150-450)
[2021-06-26 06:42] LABS: BLOOD UREA NITROGEN 22 MG/DL (7-18); CALCIUM LEVEL 8.9 MG/DL (8.8-10.2); CARBON DIOXIDE LEVEL 23 MEQ/L (21-32); CHLORIDE LEVEL 100 MEQ/L (98-107); CREATININE FOR GFR 0.53 MG/DL (0.55-1.30); GLOMERULAR FILTRATION RATE > 60.0 (>39); GLUCOSE, FASTING 151 MG/DL (70-100); MAGNESIUM LEVEL 2.1 MG/DL (1.8-2.4); POTASSIUM SERUM 4.1 MEQ/L (3.5-5.1); SODIUM LEVEL 134 MEQ/L (136-145)
[2021-06-26] MEDS: SYMBICORT 160/4.5MCG INHALER 6GM INH SCH ×2 (08:00→20:26)
[2021-06-26] MEDS: ATORVASTATIN 20 MG TAB PO SCH (10:01)
[2021-06-26] MEDS: ENOXAPARIN 40MG/0.4ML SYRINGE (J1650 PER 10MG) SC SCH (10:01)
[2021-06-26] MEDS: MULTIVITAMINS/MINERALS THERAP 1 TAB PO SCH (10:01)
[2021-06-26] MEDS: ASPIRIN 81MG ENTERIC TABLET PO SCH (10:01)
[2021-06-26] MEDS: ANALGESIC BALM CRM 3OZ TOP SCH ×4 (10:03→20:56)
[2021-06-26] MEDS: BRIMONIDINE 0.1% OPHTH SOLN 5 ML OU SCH ×2 (10:22→20:56)
[2021-06-26] MEDS: DICLOFENAC EPOLAMINE 1.3 % PATCH TOP SCH ×2 (10:22→20:55)
--- NOTE | 2021-06-26 11:24 | IPNPDOC ---
Subjective Date Seen The patient was seen on 06/26/21. Subjective Chief Complaint/HPI Patient is seen at bedside laying down in bed awake and alert. She is very tearful today and says that her son and her grandkids do not care about her to never check on her. But she states she is close to her sister and her daughter who always check on her. She was asking about Dr. Lucia and when he is going to start treatment. She tells me she wants to get as strong as possible before starting the cancer treatment. Objective Physical Examination General Exam: Positive: Alert, Cooperative, No Acute Distress Eye Exam: Positive: PERRLA, Conjunctiva & lids normal, EOMI; Negative: Sclera icteric ENT Exam: Positive: Atraumatic, Mucous membr. moist/pink Neck Exam: Positive: Supple; Negative: JVD, thyromegaly Chest Exam: Positive: Clear to auscultation, Normal air movement Heart Exam: Positive: Rate Normal, Regular Rhythm, Normal S1, Normal S2, Murmurs (Systolic murmur best heard at the aortic area ); Negative: Rubs Abdomen Exam: Positive: Normal bowel sounds, Soft; Negative: Tenderness Extremity Exam: Negative: Clubbing, Cyanosis, Edema Assessment /Plan Assessment This is a 75-year-old female with recurrent non-small cell lung cancer being evaluated for radiation therapy with referral to medical oncology for chemotherapy with carbo and Taxol, 90 pack year history of smoking, hypertens ion, diabetes, hyperlipidemia, dementia, metabolic syndrome, no diagnosis of COPD or emphysema, obesity, BMI of 30, bipolar disorder with depression with a nonacute fracture of T12, seen in the ER on 06/23/2021 for back pain sent to back to [facility] assisted living, returns to hospital with worsening confusion and inability to ambulate. Patient was found to be hypoxic, 85% on room air at [facility] by EMS and was brought in for further evaluation. The patient's altered mental status was thought to be due to polypharmacy with continued use of pain medications for her back pain with oxycodone along with her chronic medications. Her hypoxia was not thought to be due to COPD exacerbation though she formally does not carry a diagnosis of emphysema or COPD but she does have heavy smoking history .The patient is admitted for the following acute issues: Acute hypoxic respiratory failure due to opioid-induced respiratory depression, in the setting of acute copd exacerbation Now resolved COPD exacerbation. We will give prednisone, doxycycline, DuoNeb's and oxygen as needed Continue nebulizers Toxic encephalopathy on baseline dementia. due to opioids avoid narcotics and sedative Leukocytosis Due to steroid Recurrent non-small cell lung cancer in the right lung [facility] Dr. Walker consulted. Plan for simulation of radiation on 06/27/2021 Dyslipidemia. Continue on Lipitor. History of vulvar cancer, surgically treated. Hypothyroidism. Continue on Synthroid. Bipolar disorder on chronic Depakote. History of cataract surgery and glaucoma on Alphagan. Plan/VTE VTE Prophylaxis Ordered?: Yes VS, I&O, 24H, Fishbone Vital Signs/I&O Vital Signs Date Time Temp Pulse Resp B/P (MAP) Pulse Ox O2 Delivery O2 Flow Rate FiO2 06/26/21 06:00 97.7 71 20 114/49 (70) 92 High Flow Cannula 2.0 I&O- Last 24 Hours up to 6 AM 06/26/21 05:59 Intake Total 1840 ml Output Total 0 ml Balance 1840 ml Laboratory Data 24H LABS Laboratory Tests 2 06/25/21 11:36: Bedside Glucose (Misc Panel) 235H 06/25/21 12:21: Bedside Glucose (Misc Panel) 236H 06/25/21 15:54: Ammonia 27 06/25/21 17:12: Bedside Glucose (Misc Panel) 224H 06/25/21 23:22: Bedside Glucose (Misc Panel) 258H 06/26/21 05:16: Bedside Glucose (Misc Panel) 138H 06/26/21 05:45: Immature Granulocyte % (Auto) 0.8, Neutrophils (%) (Auto) 89.9H, Lymphocytes (%) (Auto) 5.2L, Monocytes (%) (Auto) 4.0, Eosinophils (%) (Auto) 0.0, Basophils (%) (Auto) 0.1, Neutrophils # (Auto) 15.2H, Lymphocytes # (Auto) 0.9L, Monocytes # (Auto) 0.7, Eosinophils # (Auto) 0.0, Basophils # (Auto) 0.0, Nucleated Red Blood Cells % (auto) 0.0, Anion Gap 11, Glomerular Filtration Rate > 60.0, Calcium Level 8.9, Magnesium Level 2.1 CBC/BMP Laboratory Tests 06/26/21 05:45 Microbiology Microbiology 06/24/21 Blood Culture - Preliminary, Resulted No Growth after 48 hours. All Specime... 06/24/21 Respiratory Virus Panel (PCR) (RUSSELL) - Final, Complete 06/24/21 Blood Culture - Preliminary, Resulted No Growth after 48 hours. All Specime... DANIEL MENON MD Jun 26, 2021 11:21
[2021-06-26 14:00] VITALS: BP 106/57
[2021-06-26] MEDS: cefTRIAXone SOD 2 GM in D5W MINI-BAG PLUS 50 ML IV SCH (14:21)
[2021-06-26] MEDS: DIVALPROEX 500MG *ER* TAB PO SCH (20:54)
[2021-06-26] MEDS: LURASIDONE HCL 40 MG TAB (LATUDA) PO SCH (20:54)
[2021-06-26 22:00] VITALS: BP 124/60
[2021-06-27] MEDS: IPRATROPIUM 0.5MG/ALBUTEROL 2.5MG INH SOL UD 3ML (DUONEB) NEB SCH ×6 (01:35→20:03)
[2021-06-27] MEDS: LEVOTHYROXINE 75MCG TABLET (0.075MG) PO SCH (05:41)
[2021-06-27 06:00] VITALS: BP 121/61
[2021-06-27 06:18] LABS: BASO % 0.2 % (0.0-1.0); HEMATOCRIT 30.8 % (36.0-47.0); HEMOGLOBIN 10.5 g/dl (12.0-15.5); LYMPH % 15.2 % (24.0-44.0); MEAN CORPUSCULAR HEMOGLOBIN 29.7 pg (27.0-33.0); MEAN CORPUSCULAR HGB CONC 34.1 g/dl (32.0-36.5); MONO # 1.2 10^3/uL (0.0-0.8); MONO % 8.9 % (2.0-8.0); NEUTROPHILS # 9.8 10^3/uL (1.5-8.5); NEUTROPHILS % 74.4 % (36.0-66.0); PLATELET COUNT, AUTOMATED 372 10^3/uL (150-450); RED BLOOD COUNT 3.54 10^6/uL (4.00-5.40); WHITE BLOOD COUNT 13.2 10^3/uL (4.0-10.0)
[2021-06-27 06:38] LABS: BLOOD UREA NITROGEN 21 MG/DL (7-18); CALCIUM LEVEL 8.3 MG/DL (8.8-10.2); CARBON DIOXIDE LEVEL 26 MEQ/L (21-32); CHLORIDE LEVEL 100 MEQ/L (98-107); CREATININE FOR GFR 0.43 MG/DL (0.55-1.30); GLOMERULAR FILTRATION RATE > 60.0 (>39); GLUCOSE, FASTING 148 MG/DL (70-100); MAGNESIUM LEVEL 2.1 MG/DL (1.8-2.4); POTASSIUM SERUM 4.5 MEQ/L (3.5-5.1); SODIUM LEVEL 132 MEQ/L (136-145)
[2021-06-27] MEDS: SYMBICORT 160/4.5MCG INHALER 6GM INH SCH ×2 (07:31→20:03)
[2021-06-27] MEDS: DICLOFENAC EPOLAMINE 1.3 % PATCH TOP SCH ×2 (08:02→22:45)
[2021-06-27] MEDS: DOXYCYCLINE HYCLATE 100MG TABLET PO SCH ×2 (08:03→21:22)
[2021-06-27] MEDS: ATORVASTATIN 20 MG TAB PO SCH (08:03)
[2021-06-27] MEDS: MULTIVITAMINS/MINERALS THERAP 1 TAB PO SCH (08:03)
[2021-06-27] MEDS: HumaLOG INSULIN (NovoLOG) PER UNIT SC SCH ×4 (08:03→21:00)
[2021-06-27] MEDS: ASPIRIN 81MG ENTERIC TABLET PO SCH (08:03)
[2021-06-27] MEDS: ENOXAPARIN 40MG/0.4ML SYRINGE (J1650 PER 10MG) SC SCH (08:03)
[2021-06-27] MEDS: predniSONE 20 MG TAB PO SCH (08:03)
[2021-06-27] MEDS: BRIMONIDINE 0.1% OPHTH SOLN 5 ML OU SCH ×2 (08:04→22:43)
[2021-06-27] MEDS: ANALGESIC BALM CRM 3OZ TOP SCH ×4 (08:04→22:44)
[2021-06-27] MEDS ORDERED: IRBE75TA4 PO (08:40)
[2021-06-27] MEDS ORDERED: DOXY100T PO (08:40)
[2021-06-27] MEDS ORDERED: PRED20TA PO (08:41)
--- NOTE | 2021-06-27 09:00 | DS.PDOC ---
Discharge Summary General Date of Admission Jun 24, 2021 at 10:29 Date of Discharge 06/27/21 Discharge Summary PROCEDURES PERFORMED DURING STAY: [None]. 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 HOSPITAL COURSE: This is a 75-year-old female with recurrent non-small cell lung cancer being evaluated for radiation therapy with referral to medical oncology for chemotherapy with carbo and Taxol, 90 pack year history of smoking, hypertension, diabetes, hyperlipidemia, dementia, metabolic syndrome, no diagnosis of COPD or emphysema, obesity, BMI of 30, bipolar disorder with depression with a nonacute fracture of T12, seen in the ER on 06/23/2021 for back pain sent to back to [facility] assisted living, returns to hospital with worsening confusion and inability to ambulate. Patient was found to be hypoxic, 85% on room air at [facility] by EMS and was brought in for further evaluation. The patient's altered mental status was thought to be due to polypharmacy with continued use of pain medications for her back pain with oxycodone along with her chronic medications. Her hypoxia was not thought to be due to COPD exacerbation though she formally does not carry a diagnosis of emphysema or COPD but she does have heavy smoking history .The patient is admitted for the following acute issues: Acute hypoxic respiratory failure due to opioid-induced respiratory depression, in the setting of acute copd exacerbation Now resolved COPD exacerbation. We will give prednisone, doxycycline, DuoNeb's and oxygen as needed Continue nebulizers Toxic encephalopathy on baseline dementia. due to opioids avoid narcotics and sedative Leukocytosis Due to steroid Recurrent non-small cell lung cancer ( invasive squamous cell cancer) in the rig ht upper lobe. multiple recurrent NSCLC of the RUL first diagnosed in 2018 and s/p SBRT at [place] [id number] ( 2018 and 2019) She is s/p recent re-biopsy of the RUL apical primary tumor on 05/22/[address] [facility] Dr. Walker consulted. Simulation of radiation on 06/27/2021 Has also been referred to medication oncology as outpatient. Generalized deconditioning and difficulty in ambulation Continue PT /OT on discharge Dyslipidemia. Continue on Lipitor. History of vulvar cancer, moderately differentiated SCC diagnosed in 2019 and managed surgically in Nov 2020. Hypothyroidism. Continue on Synthroid. Bipolar disorder on chronic Depakote. History of cataract surgery and glaucoma on Alphagan. DISCHARGE MEDICATIONS: Please see below. ALLERGIES: Please see below. PHYSICAL EXAMINATION ON DISCHARGE: VITAL SIGNS: Please see below. General Exam: Positive: Alert, Cooperative, No Acute Distress Eye Exam: Positive: PERRLA, Conjunctiva & lids normal, EOMI; Negative: Sclera icteric ENT Exam: Positive: Atraumatic, Mucous membr. moist/pink Neck Exam: Positive: Supple; Negative: JVD, thyromegaly Chest Exam: Positive: Clear to auscultation, Normal air movement Heart Exam: Positive: Rate Normal, Regular Rhythm, Normal S1, Normal S2, Murmurs (Systolic murmur best heard at the aortic area ); Negative: Rubs Abdomen Exam: Positive: Normal bowel sounds, Soft; Negative: Tenderness Extremity Exam: Negative: Clubbing, Cyanosis, Edema LABORATORY DATA: Please see below. ACTIVITY: [As tolerated]. DIET: As tolerated DISCHARGE PLAN: [facility] home side DISCHARGE INSTRUCTIONS: Follow-up with Dr. Walker for radiation Follow-up with medical oncology as per outpatient appointment scheduled PMD in 2 weeks DISCHARGE CONDITION: [Stable]. TIME SPENT ON DISCHARGE: 35 minutes. Vital Signs/I&Os Vital Signs Date Time Temp Pulse Resp B/P (MAP) Pulse Ox O2 Delivery O2 Flow Rate FiO2 06/27/21 06:00 98.7 64 20 121/61 (81) 93 Room Air 06/26/21 06:00 2.0 I&O- Last 24 Hours up to 6 AM 06/27/21 06:00 Intake Total 1320 ml Balance 1320 ml Laboratory Data Labs 24H Laboratory Tests 2 06/26/21 11:27: Bedside Glucose (Misc Panel) 326H 06/26/21 16:40: Bedside Glucose (Misc Panel) 314H 06/26/21 21:22: Bedside Glucose (Misc Panel) 226H 06/27/21 05:57: Immature Granulocyte % (Auto) 1.3, Neutrophils (%) (Auto) 74.4H, Lymphocytes (%) (Auto) 15.2L, Monocytes (%) (Auto) 8.9H, Eosinophils (%) (Auto) 0.0, Basophils (%) (Auto) 0.2, Neutrophils # (Auto) 9.8H, Lymphocytes # (Auto) 2.0, Monocytes # (Auto) 1.2H, Eosinophils # (Auto) 0.0, Basophils # (Auto) 0.0, Nucleated Red Blood Cells % (auto) 0.0, Anion Gap 6L, Glomerular Filtration Rate > 60.0, Calci um Level 8.3L, Magnesium Level 2.1 CBC/BMP Laboratory Tests 06/27/21 05:57 FSBS Laboratory Tests Test 06/26/21 11:27 06/26/21 16:40 06/26/21 21:22 Range/Units Bedside Glucose (Misc Panel) 326 314 226 83-110 MG/DL Microbiology Microbiology 06/24/21 Blood Culture - Preliminary, Resulted No Growth after 48 hours. All Specime... 06/24/21 Respiratory Virus Panel (PCR) (RUSSELL) - Final, Complete 06/24/21 Blood Culture - Preliminary, Resulted No Growth after 48 hours. All Specime... Discharge Medications Scheduled Aspirin (Aspirin EC) 81 Mg Tablet.dr, 81 MG PO DAILY, (Reported) Atorvastatin Calcium (Atorvastatin Calcium) 20 Mg Tablet, 20 MG PO DAILY, (Reported) Brimonidine Tartrate (Alphagan P) 0.1% 5ML Drops, 1 DROP OU BID, (Reported) Divalproex Sodium (Divalproex Sodium ER) 500 Mg Tab.er.24h, 2,000 MG PO QHS, (Reported) Docusate Sodium (Docusate Sodium) 100 Mg Capsule, 100 MG PO QHS, (Reported) Doxycycline Hyclate (Doxycycline Hyclate) 100 Mg Tablet, 100 MG PO BID Irbesartan (Irbesartan) 75 Mg Tablet, 1 TAB PO DAILY Levothyroxine Sodium (Synthroid) 75 Mcg Tablet, 75 MCG PO DAILY, (Reported) Lurasidone HCl (Latuda) 80 Mg Tablet, 80 MG PO QHS, (Reported) Metoprolol Succinate (Metoprolol Succinate) 25 Mg Tab.er.24h, 12.5 MG PO DAILY, (Reported) Multivitamins (Thera M Plus Tablet) 1 Each Tablet, 1 TAB PO DAILY, (Reported) Nystatin (Nystatin) 15 Gm Cream..g., 1 APLCT TOP BID, (Reported) APPLY UNDER BREASTS, ABDOMEN AND GROIN Prednisone (Prednisone) 20 Mg Tablet, 40 MG PO DAILY for 2 days from 06/28/21 Umeclidinium Brm/Vilanterol Tr (Anoro Ellipta 62.5-25 Mcg INH) 1 Each Blst.w.dev, 1 PUFF INH DAILY, (Reported) Scheduled PRN Acetaminophen (Acetaminophen) 325 Mg Tablet, 650 MG PO Q4H PRN for PAIN LEVEL 1- 5, (Reported) Albuterol Sulfate (Proair Hfa) 8.5 Gm Hfa.aer.ad, 2 PUFF INH Q4H PRN for SOB/WHEEZING, (Reported) Lorazepam (Ativan) 0.5 Mg Tablet, 0.5 MG PO Q12H PRN for ANXIETY, (Reported) Magnesium Hydroxide (Milk of Magnesia) 400 Mg/5 Ml Oral.susp, 2,400 MG PO DAILY PRN for CONSTIPATION, (Reported) Melatonin (Melatonin) 5 Mg Capsule, 5 MG PO QHS PRN for INSOMNIA, (Reported) Ondansetron HCl (Ondansetron HCl) 8 Mg Tablet, 8 MG PO Q8H PRN for NAUSEA OR VOMITING, (Reported) Oxycodone HCl (Oxycodone HCl) 5 Mg Tablet, 5 MG PO Q4H PRN for PAIN LEVEL 5-10, (Reported) Allergies Coded Allergies: loratadine (Verified Adverse Reaction, Mild, NERVOUS, 10/04/20) nicotine (Verified Adverse Reaction, Mild, PALPITATIONS, 10/04/20) DANIEL MENON MD Jun 27, 2021 09:00
[2021-06-27] MEDS: DIVALPROEX 500MG *ER* TAB PO SCH (21:22)
[2021-06-27] MEDS: LURASIDONE HCL 40 MG TAB (LATUDA) PO SCH (21:23)
[2021-06-27 22:00] VITALS: BP 141/65
[2021-06-28] MEDS: IPRATROPIUM 0.5MG/ALBUTEROL 2.5MG INH SOL UD 3ML (DUONEB) NEB SCH ×7 (04:05→23:37)
[2021-06-28 06:00] VITALS: BP 113/56
[2021-06-28] MEDS: LEVOTHYROXINE 75MCG TABLET (0.075MG) PO SCH (06:22)
[2021-06-28 06:57] LABS: BASO % 0.4 % (0.0-1.0); EOS # 0.1 10^3/uL (0.0-0.5); EOS % 0.6 % (0.0-3.0); HEMATOCRIT 32.9 % (36.0-47.0); LYMPH # 2.6 10^3/uL (1.5-5.0); LYMPH % 23.7 % (24.0-44.0); MEAN CORPUSCULAR HEMOGLOBIN 29.4 pg (27.0-33.0); MEAN CORPUSCULAR HGB CONC 33.4 g/dl (32.0-36.5); MONO # 1.5 10^3/uL (0.0-0.8); MONO % 13.5 % (2.0-8.0); NEUTROPHILS # 6.6 10^3/uL (1.5-8.5); NEUTROPHILS % 59.8 % (36.0-66.0); PLATELET COUNT, AUTOMATED 362 10^3/uL (150-450); RED BLOOD COUNT 3.74 10^6/uL (4.00-5.40)
[2021-06-28] MEDS: SYMBICORT 160/4.5MCG INHALER 6GM INH SCH ×2 (07:15→20:18)
[2021-06-28 07:18] LABS: BLOOD UREA NITROGEN 15 MG/DL (7-18); CALCIUM LEVEL 8.6 MG/DL (8.8-10.2); CARBON DIOXIDE LEVEL 26 MEQ/L (21-32); CHLORIDE LEVEL 101 MEQ/L (98-107); CREATININE FOR GFR 0.43 MG/DL (0.55-1.30); GLOMERULAR FILTRATION RATE > 60.0 (>39); GLUCOSE, FASTING 112 MG/DL (70-100); SODIUM LEVEL 135 MEQ/L (136-145)
[2021-06-28] MEDS: HumaLOG INSULIN (NovoLOG) PER UNIT SC SCH ×4 (07:46→21:00)
[2021-06-28] MEDS: ASPIRIN 81MG ENTERIC TABLET PO SCH (09:19)
[2021-06-28] MEDS: predniSONE 20 MG TAB PO SCH ×2 (09:19→09:34)
[2021-06-28] MEDS: MULTIVITAMINS/MINERALS THERAP 1 TAB PO SCH (09:19)
[2021-06-28] MEDS: ATORVASTATIN 20 MG TAB PO SCH (09:20)
[2021-06-28] MEDS: DOXYCYCLINE HYCLATE 100MG TABLET PO SCH ×2 (09:20→20:38)
[2021-06-28] MEDS: DICLOFENAC EPOLAMINE 1.3 % PATCH TOP SCH ×2 (09:20→21:00)
[2021-06-28] MEDS: ANALGESIC BALM CRM 3OZ TOP SCH ×4 (09:21→20:42)
[2021-06-28] MEDS: BRIMONIDINE 0.1% OPHTH SOLN 5 ML OU SCH ×2 (09:21→20:41)
[2021-06-28] MEDS: ENOXAPARIN 40MG/0.4ML SYRINGE (J1650 PER 10MG) SC SCH (09:22)
[2021-06-28] MEDS: DIVALPROEX 500MG *ER* TAB PO SCH (20:38)
[2021-06-28] MEDS: LURASIDONE HCL 40 MG TAB (LATUDA) PO SCH (20:39)
[2021-06-29] MEDS: IPRATROPIUM 0.5MG/ALBUTEROL 2.5MG INH SOL UD 3ML (DUONEB) NEB SCH ×6 (03:15→23:10)
[2021-06-29 06:16] VITALS: BP 135/59
[2021-06-29] MEDS: LEVOTHYROXINE 75MCG TABLET (0.075MG) PO SCH (06:21)
[2021-06-29] MEDS: SYMBICORT 160/4.5MCG INHALER 6GM INH SCH ×2 (07:08→19:16)
[2021-06-29] MEDS: HumaLOG INSULIN (NovoLOG) PER UNIT SC SCH ×4 (07:30→21:00)
[2021-06-29] MEDS: ENOXAPARIN 40MG/0.4ML SYRINGE (J1650 PER 10MG) SC SCH (10:11)
[2021-06-29] MEDS: BRIMONIDINE 0.1% OPHTH SOLN 5 ML OU SCH ×2 (10:11→21:07)
[2021-06-29] MEDS: DICLOFENAC EPOLAMINE 1.3 % PATCH TOP SCH ×2 (10:11→21:06)
[2021-06-29] MEDS: DOXYCYCLINE HYCLATE 100MG TABLET PO SCH ×2 (10:12→21:06)
[2021-06-29] MEDS: MULTIVITAMINS/MINERALS THERAP 1 TAB PO SCH (10:12)
[2021-06-29] MEDS: ASPIRIN 81MG ENTERIC TABLET PO SCH (10:12)
[2021-06-29] MEDS: predniSONE 20 MG TAB PO SCH (10:12)
[2021-06-29] MEDS: ANALGESIC BALM CRM 3OZ TOP SCH ×4 (10:12→21:07)
[2021-06-29] MEDS: ATORVASTATIN 20 MG TAB PO SCH (10:12)
[2021-06-29] MEDS: DIVALPROEX 500MG *ER* TAB PO SCH (21:06)
[2021-06-29] MEDS: LURASIDONE HCL 40 MG TAB (LATUDA) PO SCH (21:06)
[2021-06-29 22:00] VITALS: BP 108/53
[2021-06-30] MEDS: IPRATROPIUM 0.5MG/ALBUTEROL 2.5MG INH SOL UD 3ML (DUONEB) NEB SCH ×5 (03:26→20:00)
[2021-06-30] MEDS: LEVOTHYROXINE 75MCG TABLET (0.075MG) PO SCH (05:29)
[2021-06-30 06:00] VITALS: BP 127/60
[2021-06-30] MEDS: HumaLOG INSULIN (NovoLOG) PER UNIT SC SCH ×4 (07:30→19:55)
[2021-06-30] MEDS: SYMBICORT 160/4.5MCG INHALER 6GM INH SCH ×2 (08:55→20:13)
[2021-06-30] MEDS: ANALGESIC BALM CRM 3OZ TOP SCH ×4 (09:00→19:55)
[2021-06-30] MEDS: BRIMONIDINE 0.1% OPHTH SOLN 5 ML OU SCH ×2 (10:00→19:55)
[2021-06-30] MEDS: DOXYCYCLINE HYCLATE 100MG TABLET PO SCH ×2 (10:12→19:54)
[2021-06-30] MEDS: ATORVASTATIN 20 MG TAB PO SCH (10:12)
[2021-06-30] MEDS: MULTIVITAMINS/MINERALS THERAP 1 TAB PO SCH (10:12)
[2021-06-30] MEDS: ASPIRIN 81MG ENTERIC TABLET PO SCH (10:12)
[2021-06-30] MEDS: predniSONE 20 MG TAB PO SCH (10:12)
[2021-06-30] MEDS: ENOXAPARIN 40MG/0.4ML SYRINGE (J1650 PER 10MG) SC SCH (10:13)
[2021-06-30] MEDS: DICLOFENAC EPOLAMINE 1.3 % PATCH TOP SCH ×2 (10:13→19:54)
[2021-06-30 13:13] VITALS: BP 117/53
[2021-06-30] MEDS: LURASIDONE HCL 40 MG TAB (LATUDA) PO SCH (17:27)
[2021-06-30] MEDS: DIVALPROEX 500MG *ER* TAB PO SCH (19:54)
[2021-06-30 22:00] VITALS: BP 115/62
[2021-07-01] MEDS: IPRATROPIUM 0.5MG/ALBUTEROL 2.5MG INH SOL UD 3ML (DUONEB) NEB SCH ×7 (03:26→23:56)
[2021-07-01] MEDS: LEVOTHYROXINE 75MCG TABLET (0.075MG) PO SCH (05:03)
[2021-07-01 06:00] VITALS: BP 132/61
[2021-07-01] MEDS: HumaLOG INSULIN (NovoLOG) PER UNIT SC SCH ×4 (07:30→21:00)
[2021-07-01] MEDS: SYMBICORT 160/4.5MCG INHALER 6GM INH SCH ×2 (08:22→21:27)
[2021-07-01] MEDS: ATORVASTATIN 20 MG TAB PO SCH (09:21)
[2021-07-01] MEDS: predniSONE 20 MG TAB PO SCH (09:21)
[2021-07-01] MEDS: DICLOFENAC EPOLAMINE 1.3 % PATCH TOP SCH ×2 (09:21→23:25)
[2021-07-01] MEDS: ASPIRIN 81MG ENTERIC TABLET PO SCH (09:21)
[2021-07-01] MEDS: MULTIVITAMINS/MINERALS THERAP 1 TAB PO SCH (09:21)
[2021-07-01] MEDS: ENOXAPARIN 40MG/0.4ML SYRINGE (J1650 PER 10MG) SC SCH (09:21)
[2021-07-01] MEDS: DOXYCYCLINE HYCLATE 100MG TABLET PO SCH ×2 (09:21→23:23)
[2021-07-01] MEDS: ANALGESIC BALM CRM 3OZ TOP SCH ×4 (09:22→23:24)
[2021-07-01] MEDS: BRIMONIDINE 0.1% OPHTH SOLN 5 ML OU SCH ×2 (09:22→23:24)
[2021-07-01] MEDS: LURASIDONE HCL 40 MG TAB (LATUDA) PO SCH (17:44)
[2021-07-01] MEDS: DIVALPROEX 500MG *ER* TAB PO SCH (23:23)
[2021-07-02] MEDS: IPRATROPIUM 0.5MG/ALBUTEROL 2.5MG INH SOL UD 3ML (DUONEB) NEB SCH ×5 (03:39→19:25)
[2021-07-02 06:00] VITALS: BP 131/62
[2021-07-02] MEDS: LEVOTHYROXINE 75MCG TABLET (0.075MG) PO SCH (06:17)
[2021-07-02] MEDS: SYMBICORT 160/4.5MCG INHALER 6GM INH SCH ×2 (07:05→19:25)
[2021-07-02] MEDS: MULTIVITAMINS/MINERALS THERAP 1 TAB PO SCH (07:56)
[2021-07-02] MEDS: ASPIRIN 81MG ENTERIC TABLET PO SCH (07:56)
[2021-07-02] MEDS: ATORVASTATIN 20 MG TAB PO SCH (07:56)
[2021-07-02] MEDS: predniSONE 20 MG TAB PO SCH (07:56)
[2021-07-02] MEDS: ENOXAPARIN 40MG/0.4ML SYRINGE (J1650 PER 10MG) SC SCH (07:57)
[2021-07-02] MEDS: HumaLOG INSULIN (NovoLOG) PER UNIT SC SCH ×4 (07:57→21:00)
[2021-07-02] MEDS: DICLOFENAC EPOLAMINE 1.3 % PATCH TOP SCH ×2 (07:58→22:16)
[2021-07-02] MEDS: ANALGESIC BALM CRM 3OZ TOP SCH ×4 (07:58→22:16)
[2021-07-02] MEDS: BRIMONIDINE 0.1% OPHTH SOLN 5 ML OU SCH ×2 (07:59→22:15)
[2021-07-02] MEDS: LURASIDONE HCL 40 MG TAB (LATUDA) PO SCH (17:29)
[2021-07-02] MEDS: DIVALPROEX 500MG *ER* TAB PO SCH (22:15)
[2021-07-03] MEDS: IPRATROPIUM 0.5MG/ALBUTEROL 2.5MG INH SOL UD 3ML (DUONEB) NEB SCH ×3 (04:00→07:05)
[2021-07-03] MEDS: LEVOTHYROXINE 75MCG TABLET (0.075MG) PO SCH (04:55)
[2021-07-03 06:00] VITALS: BP 128/65
[2021-07-03] MEDS: SYMBICORT 160/4.5MCG INHALER 6GM INH SCH (07:05)
[2021-07-03] MEDS: HumaLOG INSULIN (NovoLOG) PER UNIT SC SCH (07:30)
[2021-07-03] MEDS: ENOXAPARIN 40MG/0.4ML SYRINGE (J1650 PER 10MG) SC SCH (07:41)
[2021-07-03] MEDS ORDERED: IRBE75TA4 PO (07:57)
[2021-07-03] MEDS ORDERED: DOXY100T PO (07:57)
[2021-07-03] MEDS ORDERED: PRED20TA PO (07:57)
--- NOTE | 2021-07-03 17:58 | IPNPDOC ---
Date Seen The patient was seen on 07/03/21. Progress Note SUBJECTIVE: Patient is a -year-old [RACE] [GENDER] with OBJECTIVE PHYSICAL EXAMINATION: VITAL SIGNS: Please see below. GENERAL: HEENT: CARDIOVASCULAR: . RESPIRATORY: . ABDOMINAL: EXTREMITIES: NEUROLOGICAL: PSYCHOLOGICAL: LABORATORY DATA, IMAGING STUDIES, MICROBIOLOGY: Please see below. Echocardiogram: . DVT prophylaxis ordered?: ASSESSMENT AND PLAN: This is a -year-old [RACE] [GENDER] with . PROBLEMS: 1. : . 2. : . 3. : . DISPOSITION: . VS, I&O, 24H, Fishbone Vital Signs/I&O Vital Signs Date Time Temp Pulse Resp B/P (MAP) Pulse Ox O2 Delivery O2 Flow Rate FiO2 07/03/21 06:00 98.2 61 16 128/65 (86) 97 Room Air I&O- Last 24 Hours up to 6 AM 07/03/21 06:00 Intake Total 1120 ml Balance 1120 ml Laboratory Data 24H LABS Laboratory Tests 2 07/02/21 20:29: Bedside Glucose (Misc Panel) 139H 07/03/21 05:55: Bedside Glucose (Misc Panel) 96 Microbiology Microbiology 06/24/21 Blood Culture - Final, Complete NO GROWTH AFTER 5 DAYS 06/24/21 Respiratory Virus Panel (PCR) (RUSSELL) - Final, Complete 06/24/21 Blood Culture - Final, Complete NO GROWTH AFTER 5 DAYS KENRICK BLEVINS MD Jul 03, 2021 17:58
== END 2021-07-03 08:00 | DRG 189 ==
LOC: M ED 08:21 → EDBD 08:21 → M ED INP 10:29 → ENRESERV 12:40 → M MS5PR 16:00
PROVIDERS: ADMIT General Practice; ATTEND Internal Medicine Nephrology
DX: J96.01 Acute respiratory failure with hypoxia (principal); G92 Toxic encephalopathy; J44.1 Chronic obstructive pulmonary disease with (acute) exacerbation; C34.11 Malignant neoplasm of upper lobe, right bronchus or lung; F03.91 Unspecified dementia, unspecified severity, with behavioral disturbance; R41.0 Disorientation, unspecified; I10 Essential (primary) hypertension; E11.9 Type 2 diabetes mellitus without complications; F11.90 Opioid use, unspecified, uncomplicated; D72.829 Elevated white blood cell count, unspecified; R26.89 Other abnormalities of gait and mobility; E78.5 Hyperlipidemia, unspecified; E66.9 Obesity, unspecified; Z68.30 Body mass index [BMI] 30.0-30.9, adult; F31.9 Bipolar disorder, unspecified; Z79.82 Long term (current) use of aspirin; Z79.899 Other long term (current) drug therapy; Z88.8 Allergy status to other drugs, medicaments and biological substances; Z85.42 Personal history of malignant neoplasm of other parts of uterus; Z87.891 Personal history of nicotine dependence; E03.9 Hypothyroidism, unspecified; Z98.49 Cataract extraction status, unspecified eye

== ENCOUNTER 2021-06-27 10:41 | Outpatient (RCR) | payer MEDICARE, MEDICAID ==
[~2021-06-27 10:41] MED LIST changes: +ATIV1TAB10 PO; +DOXY100T PO; +IRBE75TA4 PO; +LOSA50TA28; +LOSA50TA28 PO; -LOSA50TA88; -LOSA50TA88 PO; +NYST10CR TOP; +ONDA-84 PO; -ONDA8TAB10 PO; +PRED20TA PO
[2021-07-03] MEDS ORDERED: IRBE75TA4 PO (07:57)
[2021-07-03] MEDS ORDERED: DOXY100T PO (07:57)
[2021-07-03] MEDS ORDERED: PRED20TA PO (07:57)
[2021-08-13] MEDS ORDERED: ONDA-84 PO (13:38)
[2021-08-13] MEDS ORDERED: PROC10TA5 PO (13:38)
[2021-10-03] MEDS ORDERED: ONDA-84 PO (10:58)
[2021-10-18] MEDS ORDERED: IRBE75TA4 PO (08:33)
[2021-10-18] MEDS ORDERED: METO1TAB32 PO ×2 (08:36→08:37)
[2021-11-27] MEDS ORDERED: TRIA1CR80 TOP (13:11)
== END 2021-07-17 ==
LOC: M ONCR 10:41
PROVIDERS: ATTEND General Practice
DX: C34.11 Malignant neoplasm of upper lobe, right bronchus or lung (principal)

== ENCOUNTER 2021-07-18 10:58 | Outpatient (RCR) | payer MEDICARE, MEDICAID ==
[~2021-07-18 10:58] MED LIST changes: -LOSA50TA28; -LOSA50TA28 PO; +LOSA50TA88; +LOSA50TA88 PO; -ONDA-84 PO; +ONDA8TAB10 PO
--- NOTE | 2021-07-25 16:25 | RADENCPD ---
Date/Time of Encounter Date of Encounter: Jul 25, 2021 Time of Encounter: 15:57 Encounter Spoke to Jeana (sister) regarding delays in obtaining medical oncology opinion regarding chemotherapy. Estela was scheduled for 06/04/21 and no-showed, there was no follow up call for this to reschedule or inquire as to why the appointment was missed (even though she resides in a [facility] facility). This has delayed a decision regarding concurrent chemotherapy with radiation for her recurrent RUL NSCLC. Discussed the pros and cons of moving forward with RT a lone versus waiting for an appointment on 08/03/21 (which was next available). Jeana would like the chemotherapy opinion. This is reasonable despite the delays. If chemotherapy is deemed feasible we will move forward with treatment and coordinate appropriately. If no chemotherapy option is deemed appropriate, then can start RT within a day or two. Left my call back number and encouraged Jeana to call with any questions. MOUSTAPHA ARCE MD Jul 25, 2021 16:25
[2021-08-07] MEDS ORDERED: AMOX875T2 PO (09:51)
[2021-08-13] MEDS ORDERED: PROC10TA4 PO (13:38)
[2021-08-13] MEDS ORDERED: ONDA8TAB10 PO (13:38)
== END 2021-08-16 ==
LOC: M ONCR 10:58
PROVIDERS: ATTEND General Practice
DX: C34.11 Malignant neoplasm of upper lobe, right bronchus or lung (principal)

== ENCOUNTER → 2021-07-31 | Outpatient (REF) | payer MEDICARE, MEDICAID | LOC: M LAB REF 17:17 | PROVIDERS: ATTEND Nurse Practitioner Family | DX: J02.9 Acute pharyngitis, unspecified (principal) ==

== ENCOUNTER → 2021-08-30 | Outpatient (CLI) | payer MEDICARE, MEDICAID ==
[~2021-08-30] MED LIST changes: +AMOX875T2 PO; +LIDOCAINE 1% MDV 20ML VIAL As Ordered ONE; +MIDAZOLAM INJ 2MG/2ML VIAL (J2250 PER 1MG) As Ordered ONE; +NS 1,000 ML IV SCH; +PROC10TA4 PO; +ceFAZolin 2 GM/D5W 50 ML IV BAG (J0690 PER 500MG) As Ordered ONE; +ceFAZolin SOD 2 GM in IV 1 EA IV ONE; +diphenhydrAMINE 50MG/ML VIAL (J1200) As Ordered ONE; +fentaNYL 100 MCG/2 ML INJECTION (J3010) As Ordered ONE
--- NOTE | 2021-08-30 12:21 | IRHP ---
[facility] IR Pre-Procedure H & P General Date of Service: Aug 30, 2021 Procedure: Same Day Surgery Interval History and Physical I have seen the patient and reviewed last H & P performed within 30 days. There is no significant interval change. History of Present Illness Chief Complaint The patient is a 75-year-old female admitted with a reason for visit of Mirna Rodriguez Of Upper Lobe Rt Bronchus / Lung. PRE-PROCEDURE DIAGNOSIS: Lung cancer HEART: Normal rate. LUNGS: Normal breathing at rest. ASA Classification ASA Classification: III-Severe systemic dis. Mallampati Score: II NPO: Yes Problems with prior sedation: No Obstructive Sleep Apnea: No Plan moderate sedation Allergies Coded Allergies: loratadine (Verified Adverse Reaction, Mild, NERVOUS, 10/04/20) nicotine (Verified Adverse Reaction, Mild, PALPITATIONS, 10/04/20) Home Medications Scheduled Aspirin (Aspirin EC), 81 MG PO DAILY, (Reported) Atorvastatin Calcium (Atorvastatin Calcium), 20 MG PO DAILY, (Reported) Brimonidine Tartrate (Alphagan P), 1 DROP OU BID, (Reported) Divalproex Sodium (Divalproex Sodium ER), 2,000 MG PO QHS, (Reported) Docusate Sodium (Docusate Sodium), 100 MG PO QHS, (Reported) Irbesartan (Irbesartan), 1 TAB PO DAILY Levothyroxine Sodium (Synthroid), 75 MCG PO DAILY, (Reported) Lurasidone HCl (Latuda), 80 MG PO QHS, (Reported) Metoprolol Succinate (Metoprolol Succinate), 12.5 MG PO DAILY, (Reported) Multivitamins (Thera M Plus Tablet), 1 TAB PO DAILY, (Reported) Nystatin (Nystatin), 1 APLCT TOP BID, (Reported) Umeclidinium Brm/Vilanterol Tr (Anoro Ellipta 62.5-25 Mcg INH), 1 PUFF INH DAILY, (Reported) Scheduled PRN Acetaminophen (Acetaminophen), 650 MG PO Q4H PRN for PAIN LEVEL 1-5, (Reported) Albuterol Sulfate (Proair Hfa), 2 PUFF INH Q4H PRN for SOB/WHEEZING, (Reported) Lorazepam (Ativan), 0.5 MG PO Q12H PRN for ANXIETY, (Reported) Magnesium Hydroxide (Milk of Magnesia), 2,400 MG PO DAILY PRN for CONSTIPATION, (Reported) Melatonin (Melatonin), 5 MG PO QHS PRN for INSOMNIA, (Reported) Ondansetron HCl (Ondansetron HCl), 8 MG PO Q12H PRN for NAUSEA OR VOMITING Oxycodone HCl (Oxycodone HCl), 5 MG PO Q4H PRN for PAIN LEVEL 5-10, (Reported) Prochlorperazine Maleate (Prochlorperazine Maleate), 10 MG PO Q6H PRN for NAUSEA OR VOMITING Discontinued Medications Amoxicillin/Potassium Clav (Amox-Clav 875-125 mg Tablet), 1 TAB PO BID, (Reported) Discontinued Reason: Pt states not taking Ondansetron HCl (Ondansetron HCl), 8 MG PO Q8H PRN for NAUSEA OR VOMITING, (Reported) Discontinued Reason: Pt states not taking VS, I&O, 24H, Fishbone Vital Signs/I&O Vital Signs Date Time Temp Pulse Resp B/P (MAP) Pulse Ox O2 Delivery O2 Flow Rate FiO2 08/30/21 11:20 97.7 69 20 97 Room Air SONNY BAJWA MD Aug 30, 2021 12:21
[2021-08-30 15:00] VITALS: BP 146/65
--- NOTE | 2021-09-04 09:04 | IRPON ---
IR Postoperative Note Date Of Procedure: Aug 30, 2021 Time Of Procedure: 16:00 IR Postoperative Note IR Ultrasound and fluoroscopy guided port placement IR Ultrasound of the neck. IR Moderate sedation. Clinical indication: Lung cancer. Physician: Dr. Armas. Procedure: The patient was advised of the benefits, risks, and alternatives of the procedure and informed consent was obtained. A time-out was performed with verification of the patient's name, MRN, site of procedure and type of procedure to be performed. The patient was positioned in the supine position on the angiographic table. The site was prepped and draped in the usual sterile fashion. Moderate sedation was performed by the physician including the presence of an independent trained RN who assisted and monitored the patient's level of consciousness and physiologic status. Following the administration of fentanyl and Versed , the physician spent 45 minutes of continuous face to face time with the patient. Ultrasound of the neck reveals a patent and compressible right internal jugular vein. A clinic supervisor radiograph reveals right lung mass. The neck and anterior chest wall were anesthetized with lidocaine. The right internal jugular vein was accessed using a microintroducer needle under ultrasound guidance, via a lateral approach. An 018 wire was advanced into the superior vena cava, the needle was removed and a microsheath was placed. An Amplatz wire was then passed into the inferior vena cava. An incision at the internal jugular vein access site and anterior chest wall were made using a scalpel. An incision was made at the anterior chest wall. A small pocket was created using a combination of blunt and sharp dissection. A tunneling device was then used to pass the catheter from the pocket to the neck puncture site. An 8- [employer] Angio [employer] Smart power port was then positioned in the pocket. The catheter was then measured and cut. The introducer sheath was exchanged for a peel-away sheath. The catheter was passed through the peel-away sheath into the internal jugular vein and the peel-away sheath was removed. The port tip was positioned at the cavoatrial junction. The port was then accessed with a Leos needle. The port flushes and aspirates well. The puncture site in the neck was closed. The chest wall incision was then closed with 2-0 Vicryl and 4-0 Monocryl. Glue and Steri- Strips were applied. A sterile dressing was then applied. The patient tolerated the procedure well and was returned to the PRU in stable condition. Estimated blood loss: <5 ml. Complications: None. Conclusion: 1. Successful placement of an 8-[place] Angio dynamics Smart power port via the right internal jugular vein. The port is ready for immediate use. 2. Patient to follow up in IR clinic in 2 weeks. Thank you for this referral. SONNY ARMAS MD Sep 04, 2021 09:04
== END ==
LOC: M IRPRO 10:59
PROVIDERS: ATTEND Internal Medicine Medical Oncology
DX: C34.11 Malignant neoplasm of upper lobe, right bronchus or lung (principal); Z88.8 Allergy status to other drugs, medicaments and biological substances; Z79.890 Hormone replacement therapy; Z79.899 Other long term (current) drug therapy
CPT/HCPCS: 36561; 99152; 99153; C1769; C1788; C1894; J0690; J1200; J1642; J1644; J2250; J3010

== ENCOUNTER 2021-09-12 09:50 | Emergency (ER) | payer MEDICARE, MEDICAID ==
[~2021-09-12 09:50] MED LIST changes: -LIDOCAINE 1% MDV 20ML VIAL As Ordered ONE; -MIDAZOLAM INJ 2MG/2ML VIAL (J2250 PER 1MG) As Ordered ONE; -NS 1,000 ML IV SCH; -ceFAZolin 2 GM/D5W 50 ML IV BAG (J0690 PER 500MG) As Ordered ONE; -ceFAZolin SOD 2 GM in IV 1 EA IV ONE; -diphenhydrAMINE 50MG/ML VIAL (J1200) As Ordered ONE; -fentaNYL 100 MCG/2 ML INJECTION (J3010) As Ordered ONE
[2021-09-12] MEDS ORDERED: FLEET OIL RETENTION ENEMA PR PRN (10:15)
[2021-09-12 10:30] VITALS: BP 122/56
[2021-09-12] MEDS ORDERED: COLA100C5 PO (11:04)
== END 2021-09-12 13:01 | disposition home or self-care (01) ==
LOC: EDBD 09:50 → M ED 09:50
DX: K59.00 Constipation, unspecified (principal); Z79.82 Long term (current) use of aspirin; E11.9 Type 2 diabetes mellitus without complications; I10 Essential (primary) hypertension; J44.9 Chronic obstructive pulmonary disease, unspecified; E78.5 Hyperlipidemia, unspecified; E03.9 Hypothyroidism, unspecified; R56.9 Unspecified convulsions; Z85.118 Personal history of other malignant neoplasm of bronchus and lung; Z79.899 Other long term (current) drug therapy; Z79.890 Hormone replacement therapy; Z87.891 Personal history of nicotine dependence; Z88.8 Allergy status to other drugs, medicaments and biological substances; Z91.048 Other nonmedicinal substance allergy status

== ENCOUNTER 2021-09-14 09:20 | Outpatient (RCR) | payer MEDICARE, MEDICAID ==
[~2021-09-14 09:20] MED LIST changes: +COLA100C5 PO
== END 2021-09-16 ==
LOC: M ONCR 09:20
PROVIDERS: ATTEND General Practice
DX: C34.11 Malignant neoplasm of upper lobe, right bronchus or lung (principal)

== ENCOUNTER 2021-10-03 09:38 | Inpatient (IN) | payer MEDICARE, MEDICAID ==
[~2021-10-03] VITALS: Ht 165.1 cm; Wt 87.6 kg
--- NOTE | 2021-10-03 10:16 | REP ---
INDICATION: DYSPNEA/COUGH COMPARISON: 06/24/2021 TECHNIQUE: Portable AP view of the chest FINDINGS: Right parahilar opacity/mass is again identified and unchanged. Cardiac silhouette is normal. [id number] identified with tip in the SVC. Remainder of lung moe are relatively clear. No effusion. No pneumothorax. Skeletal structures intact. IMPRESSION: Right perihilar opacity/mass unchanged. <Electronically signed by Chandana Lopez > 10/03/21 [id number]
[2021-10-03] MEDS ORDERED: NS 2,630 ML in IV 1 EA IV ONE (10:25)
[2021-10-03 10:26] LABS: VENOUS BASE EXCESS -3.2 (-2.0-2.0); VENOUS HCO3 16.8 MEQ/L (23.0-27.0); VENOUS PARTIAL PRESSURE CO2 18.7 mmHg (38.0-50.0); VENOUS PARTIAL PRESSURE O2 193.8 mmHg (30.0-50.0); VENOUS PH 7.571 UNITS (7.330-7.430); VENOUS STANDARD HCO3 21.9 MEQ/L; VENOUS TOTAL CO2 17.4 MEQ/L (24.0-28.0)
[2021-10-03 10:32] LABS: BASO % 0.6 % (0.0-1.0); EOS % 0.1 % (0.0-3.0); HEMATOCRIT 33.9 % (36.0-47.0); HEMOGLOBIN 10.9 g/dl (12.0-15.5); LYMPH # 0.6 10^3/uL (1.5-5.0); LYMPH % 8.4 % (24.0-44.0); MEAN CORPUSCULAR HEMOGLOBIN 31.1 pg (27.0-33.0); MEAN CORPUSCULAR HGB CONC 32.2 g/dl (32.0-36.5); MEAN CORPUSCULAR VOLUME 96.6 fl (80.0-96.0); MONO # 0.5 10^3/uL (0.0-0.8); MONO % 7.9 % (2.0-8.0); NEUTROPHILS # 5.6 10^3/uL (1.5-8.5); NEUTROPHILS % 82.4 % (36.0-66.0); PLATELET COUNT, AUTOMATED 224 10^3/uL (150-450); RED BLOOD COUNT 3.51 10^6/uL (4.00-5.40); WHITE BLOOD COUNT 6.8 10^3/uL (4.0-10.0)
[2021-10-03 10:47] LABS: CK-MB VALUE MASS < 1.0 NG/ML (<3.6); CPK CREATINE PHOSPHOKINASE 35 U/L (26-192); MB/CK RELATIVE INDEX 2.86 (< OR =4); TROPONIN I < 0.02 NG/ML (< 0.10)
[2021-10-03] MEDS ORDERED: ONDA8TAB10 PO (10:58)
[2021-10-03] MEDS ORDERED: OXYC-517 PO (10:58)
[2021-10-03] MEDS ORDERED: MM S100C PO (10:58)
[2021-10-03] MEDS ORDERED: IRBE75TA4 PO (11:03)
[2021-10-03] MEDS ORDERED: HOME MED LIST COMPLETE! XX SCH (11:05)
[2021-10-03 11:07] LABS: ALBUMIN 2.4 GM/DL (3.2-5.2); ALT/SGPT 34 U/L (12-78); BILIRUBIN,DIRECT < 0.1 MG/DL (0.0-0.2); BILIRUBIN,TOTAL 0.4 MG/DL (0.2-1.0); BLOOD UREA NITROGEN 13 MG/DL (7-18); CALCIUM LEVEL 8.7 MG/DL (8.8-10.2); CARBON DIOXIDE LEVEL 21 MEQ/L (21-32); CHLORIDE LEVEL 102 MEQ/L (98-107); GLOMERULAR FILTRATION RATE > 60.0 (>39); GLUCOSE, FASTING 222 MG/DL (70-100); LIPASE 67 U/L (73-393); POTASSIUM SERUM 4.6 MEQ/L (3.5-5.1); SODIUM LEVEL 133 MEQ/L (136-145); TOTAL PROTEIN 6.3 GM/DL (6.4-8.2)
[2021-10-03] MEDS ORDERED: ISOVUE-370 76% 100ML VIAL As Ordered ONE (12:15)
--- NOTE | 2021-10-03 12:39 | REP ---
INDICATION: abd pain. COMPARISON: 07/22/2020 TECHNIQUE: Standard helical technique after the intravenous administration of 100 cc Isovue 370 FINDINGS: The liver, gallbladder, spleen, pancreas, adrenal glands, and kidneys are unchanged. There are small left renal cyst status quo. The abdominal aorta and para-aortic regions are unchanged. There is no significant change in appearance of the bowel loops or the mesenteries. There is colonic diverticulosis status quo. There is no evidence of a mass or adenopathy. There is no free fluid or free air. Bone window technique throughout the examination shows a grade 4 T12 anterior wedge-shaped compression fracture which has developed since the last exam. It is, however, unchanged compared to the CT of the chest of 06/24/2021. Spine final, hip, and sacroiliac joint degenerative changes are noted status quo. IMPRESSION: 1. T12 compression fracture as described above. 2. Right renal cysts status quo. 3. No evidence of acute disease. Other findings as described above. <Electronically signed by Ihsan Hess > 10/03/21 [id number]
--- NOTE | 2021-10-03 12:46 | REP ---
INDICATION: CP COMPARISON: Multiple the latest 06/24/2021 TECHNIQUE: Standard helical technique after the intravenous administration of 100 cc Isovue 370 FINDINGS: The mediastinum and pulmonary paulino are stable. No pleural or pericardial effusions have developed. There is no significant change in appearance of the imaged osseous structures. There is a T12 compression fracture status quo. Evaluation of the lung moe shows a large mass in the right upper lobe which is unchanged in size. The additional nodule seen in the posterior segment of the right upper lobe is unchanged. There is respiratory motion artifact obscuring the fine detail. Small nodules could be obscured. Lung moe are hypoexpanded. Subsegmental atelectatic change and fibrotic changes are noted status quo. The tip of the MediPort device is seen in the superior vena cava. IMPRESSION: 1. Unchanged lung masses as described above. 2. Osseous changes as described above. 3. Chronic lung field changes, exam limitations, and other findings as described above. <Electronically signed by Ihsan Hess > 10/03/21 [id number]
[2021-10-03 15:19] LABS: RSV AMPLIFICATION NEGATIVE (NEGATIVE)
[2021-10-03] MEDS ORDERED: LORazepam 0.5 MG TAB PO PRN (15:50)
[2021-10-03] MEDS ORDERED: ONDANSETRON 4MG/2ML VIAL IV PRN (15:50)
[2021-10-03] MEDS ORDERED: oxyCODONE 5MG TAB PO PRN (15:50)
--- NOTE | 2021-10-03 18:53 | HPEPDOC ---
General Date of Admission 10/03/21 Date of Service: Oct 03, 2021 Chief Complaint The patient is a 76-year-old female admitted with a reason for visit of Hypotension. 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 assisted living was sent to the emergency room for low blood pressures noted at [facility]. Patient complained of weakness, dizziness poor oral intake she also complained of abdominal pain. Patient reports that this morning she could not get out of bed because she was very weak and dizzy. EMS on arrival found her systolic blood pressure to be in 70s she was started on fluids and brought to the emergency room. In the ED she was still noted to be hypotensive so fluid loading was continued. Patient's blood pressure improved significantly after 2.5 L of fluid. Patient's last chemotherapy was on 09/27/2021. Labs in the ED showed a lactate of 2.7. Rest of the chemistry was within normal limits except for a blood sugar of 222. Her CBC showed chronic anemia with a hemoglobin of 10.9. There was no elevation of WBC. Patient had CT chest and CT abdomen and pelvis to evaluate for any infectious focus causing hypotension. The CT scans did not show any acute findings suggestive of infection. Patient was admitted for hypotension likely due to dehydration on the background of being on antihypertensive medications. Home Medications Scheduled Aspirin (Aspirin EC) 81 Mg Tablet.dr, 81 MG PO DAILY, (Reported) Atorvastatin Calcium (Atorvastatin Calcium) 20 Mg Tablet, 20 MG PO DAILY, (Reported) Brimonidine Tartrate (Alphagan P) 0.1% 5ML Drops, 1 DROP OU BID, (Reported) Divalproex Sodium (Divalproex Sodium ER) 500 Mg Tab.er.24h, 2,000 MG PO QHS, (Reported) Docusate Sodium (Stool Softener) 100 Mg Capsule, 100 MG PO BID, (Reported) Irbesartan (Irbesartan) 75 Mg Tablet, 75 MG PO DAILY, (Reported) Levothyroxine Sodium (Synthroid) 75 Mcg Tablet, 75 MCG PO DAILY, (Reported) Lurasidone HCl (Latuda) 80 Mg Tablet, 80 MG PO QHS, (Reported) Metoprolol Succinate (Metoprolol Succinate) 25 Mg Tab.er.24h, 12.5 MG PO DAILY, (Reported) Multivitamins (Thera M Plus Tablet) 1 Each Tablet, 1 TAB PO DAILY, (Reported) Nystatin (Nystatin) 15 Gm Cream..g., 1 APLCT TOP BID, (Reported) APPLY UNDER BREASTS, ABDOMEN AND GROIN Umeclidinium Brm/Vilanterol Tr (Anoro Ellipta 62.5-25 Mcg INH) 1 Each Blst.w.dev, 1 PUFF INH DAILY, (Reported) Scheduled PRN Acetaminophen (Acetaminophen) 325 Mg Tablet, 650 MG PO Q4H PRN for PAIN LEVEL 1- 5, (Reported) Albuterol Sulfate (Proair Hfa) 8.5 Gm Hfa.aer.ad, 2 PUFF INH Q4H PRN for SOB/WHEEZING, (Reported) Lorazepam (Ativan) 0.5 Mg Tablet, 0.5 MG PO Q12H PRN for ANXIETY, (Reported) Magnesium Hydroxide (Milk of Magnesia) 400 Mg/5 Ml Oral.susp, 30 ML PO DAILY PRN for CONSTIPATION, (Reported) Melatonin (Melatonin) 5 Mg Capsule, 5 MG PO QHS PRN for INSOMNIA, (Reported) Ondansetron HCl (Ondansetron HCl) 8 Mg Tablet, 8 MG PO Q12H PRN for NAUSEA OR VOMITING, (Reported) Oxycodone HCl (Oxycodone HCl) 5 Mg Tablet, 5 MG PO Q4H PRN for PAIN LEVEL 5-10, (Reported) Allergies Coded Allergies: loratadine (Verified Adverse Reaction, Mild, NERVOUS, 10/04/20) nicotine (Verified Adverse Reaction, Mild, PALPITATIONS, 10/04/20) Past Medical History Medical History Recurrent squamous cell cancer of the right upper lobe of lung in Nov 2018 had SRBT and March 2020 had SRBT, rebiopsy showing residual SCC on 05/22/2021, started on concurrent chemo and radiation on 08/2021 Also non hypermetabolic right lower lobe lesion. Squamous cell cancer of the vulva treated surgically in Nov 2020 hypertension, diabetes, hyperlipidemia, metabolic syndrome, COPD, bipolar disorder with depression, nonacute fracture of T12, Dementia Generalized deconditioning and difficulty in ambulation Glaucoma History of SIADH, nd Hyponatremia. Chronic anemia Surgical History Cataract surgery. Vulvar cancer surgery Biopsy of the right upper lobe of the lung, Family History Significant Family History: Cancer (Lung cancer Had Father) Social History * Smoker: former Smoker Alcohol: Denies Drugs: denies A-FIB/CHADSVASC A-FIB History Current/History of A-Fib/PAF?: No Review of Systems Constitutional: Reports: Weakness, Fatigue Eyes: Denies: Pain, Vision change ENT: Denies: Head Aches, Ear Pain, Dysphagia Skin: Denies: Rash, Lesions, Breakdown Pulmonary: Reports: Cough; Denies: Dyspnea Cardiovascular: Reports: Lt Headedness; Denies: Chest Pain, Palpitations, Orthopnea, Paroxysmal Noc. Dyspnea Gastrointestinal: Reports: Abdominal Pain; Denies: Nausea, Vomiting, Diarrhea Genitourinary: Denies: Dysuria, Frequency, Incontinence, Retention Hematologic: Denies: Bruising, Bleeding Excessively Musculoskeletal: Reports: Back Pain Psych: Reports: Anxiety, Memory Issues Physical Examination General Exam: Positive: Alert, Cooperative, No Acute Distress Eye Exam: Positive: PERRLA, Conjunctiva & lids normal, EOMI; Negative: Sclera icteric ENT Exam: Positive: Atraumatic, Mucous membr. moist/pink, Pharynx Normal Neck Exam: Positive: Supple; Negative: JVD, thyromegaly Chest Exam: Positive: Clear to auscultation, Normal air movement Heart Exam: Positive: Rate Normal, Regular Rhythm, Normal S1, Normal S2, Murmurs (Systolic murmur present); Negative: Rubs Abdomen Exam: Positive: Normal bowel sounds, Soft; Negative: Tenderness, Hepatospenomegaly Extremity Exam: Negative: Clubbing, Cyanosis, Edema Psych Exam: Positive: Anxiety, Other (Oriented x2 in place and person) Vital Signs Vital Signs Date Time Temp Pulse Resp B/P (MAP) Pulse Ox O2 Delivery O2 Flow Rate FiO2 10/03/21 12:45 83 18 129/59 (82) 97 Room Air 10/03/21 09:53 98.8 Laboratory Data Labs 24H Laboratory Tests 2 10/03/21 09:46: Immature Granulocyte % (Auto) 0.6, Neutrophils (%) (Auto) 82.4H, Lymphocytes (%) (Auto) 8.4L, Monocytes (%) (Auto) 7.9, Eosinophils (%) (Auto) 0.1, Basophils (%) (Auto) 0.6, Neutrophils # (Auto) 5.6, Lymphocytes # (Auto) 0.6L, Monocytes # (Auto) 0.5, Eosinophils # (Auto) 0.0, Basophils # (Auto) 0.0, Nucleated Red Blood Cells % (auto) 0.0, Blood Gas Bicarbonate Standard 21.9, Venous Blood pH 7.571H, Venous Blood Partial Pressure CO2 18.7L, Venous Blood Partial Pressure O2 193.8H, Venous Blood Total Carbon Dioxide 17.4L, Venous Blood HCO3 16.8L, Venous Blood Oxygen Saturation 99.0H, Venous Blood Base Excess -3.2L 10/03/21 10:02: Anion Gap 10, Glomerular Filtration Rate > 60.0, Lactic Acid Level 2.7*H, Calcium Level 8.7L, Total Bilirubin 0.4, Direct Bilirubin < 0.1, Aspartate Amino Transf (AST/SGOT) 31, Alanine Aminotransferase (ALT/SGPT) 34, Alkaline Phosphatase 109, Total Creatine Kinase 35, Creatine Kinase MB < 1.0, Creatine Kinase MB Relative Index 2.86, Troponin I < 0.02, Total Protein 6.3L, Albumin 2.4L, Albumin/Globulin Ratio 0.6L, Lipase 67L, Thyroid Stimulating Hormone (TSH) 1.780 CBC/BMP Laboratory Tests 10/03/21 09:46 10/03/21 10:02 Microbiology Microbiology 10/03/21 Blood Culture, Received Pending 10/03/21 Blood Culture, Received Pending Assessment/Plan 76-year-old on concurrent chemo RT for 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 assisted living was sent to the emergency room for low blood pressures noted at [facility]. Patient complained of weakness, dizziness poor oral intake she also complained of abdominal pain. Patient reports that this morning she could not get out of bed because she was very weak and dizzy. EMS on arrival found her systolic blood pressure to be in 70s she was started on fluids and brought to the emergency room. In the ED she was still noted to be hypotensive so fluid loading was continued. Patient's blood pressure improved significantly after 2.5 L of fluid. Patient's last chemotherapy was on 09/27/2021. Labs in the ED showed a lactate of 2.7. Rest of the chemistry was within normal limits except for a blood sugar of 222. Her CBC showed chronic anemia with a hemoglobin of 10.9. There was no elevation of WBC. Patient had CT chest and CT abdomen and pelvis to evaluate for any infectious focus causing hypotension. The CT scans did not show any acute findings suggestive of infection. Patient was admitted for hypotension likely due to dehydration on the background of being on antihypertensive medications. CT chest: Unchanged lung masses as described above. Osseous changes as described above. Chronic lung field changes, exam limitations, and other findings as described above. CT abdomen and pelvis: The liver, gallbladder, spleen, pancreas, adrenal glands, and kidneys are unchanged. There are small left renal cyst status quo. The abdominal aorta and para-aortic regions are unchanged. There is no significant change in appearance of the bowel loops or the mesenteries. There is colonic diverticulosis status quo. There is no evidence of a mass or adenopathy. There is no free fluid or free air. Bone window technique throughout the examination shows a grade 4 T12 anterior wedge-shaped compression fracture which has developed since the last exam. It is, however, unchanged compared to the CT of the chest of 06/24/2021. Spine final, hip, and sacroiliac joint degenerative changes are noted status quo. IMPRESSION: 1. T12 compression fracture as described above. 2. Right renal cysts status quo. 3. No evidence of acute disease. Other findings as described above. Hypotension Due to dehydration in the background of being on antihypertensives Responded to IV fluid We will hold antihypertensive medication WBC is not elevated. Procalcitonin is not elevated. CT abdomen and pelvis and CT chest with no , changes suggestive of infection No signs of infection at present so will hold off on antibiotics We did order cultures. Patient does have a Chemo-Port Recurrent Squamous cell lung cancer in the right lung Currently getting concomitant chemoradiation COPD Will give Spiriva and Symbicort in place of home inhaler Albuterol as needed Dementia Oriented x2. She reports that she does not remember all the things. Dyslipidemia. Continue on Lipitor. History of vulvar cancer, surgically treated in November 2019 Hypothyroidism. Continue on Synthroid. Bipolar disorder /depression/anxiety Continue Depakote, Latuda, Ativan History of cataract surgery and glaucoma on Alphagan. Plan / VTE VTE Prophylaxis Ordered?: Yes Juana Belle MD Oct 03, 2021 13:55
[2021-10-03] MEDS: SYMBICORT 160/4.5MCG INHALER 6GM INH SCH (21:25)
[2021-10-03] MEDS: DIVALPROEX 500MG *ER* TAB PO SCH (21:53)
[2021-10-03] MEDS: LURASIDONE HCL 40 MG TAB (LATUDA) PO SCH (21:57)
[2021-10-03] MEDS: DOCUSATE SODIUM 100MG CAPSULE PO SCH (21:57)
[2021-10-03] MEDS: BRIMONIDINE 0.1% OPHTH SOLN 5 ML OU SCH (21:59)
[2021-10-04] MEDS: LEVOTHYROXINE 75MCG TABLET (0.075MG) PO SCH (06:00)
[2021-10-04 07:02] LABS: BASO % 0.7 % (0.0-1.0); EOS # 0.1 10^3/uL (0.0-0.5); EOS % 1.7 % (0.0-3.0); HEMATOCRIT 32.9 % (36.0-47.0); HEMOGLOBIN 10.8 g/dl (12.0-15.5); LYMPH # 1.1 10^3/uL (1.5-5.0); LYMPH % 22.8 % (24.0-44.0); MEAN CORPUSCULAR HGB CONC 32.8 g/dl (32.0-36.5); MEAN CORPUSCULAR VOLUME 94.5 fl (80.0-96.0); MONO # 0.7 10^3/uL (0.0-0.8); MONO % 15.7 % (2.0-8.0); NEUTROPHILS # 2.7 10^3/uL (1.5-8.5); PLATELET COUNT, AUTOMATED 226 10^3/uL (150-450); RED BLOOD COUNT 3.48 10^6/uL (4.00-5.40); WHITE BLOOD COUNT 4.6 10^3/uL (4.0-10.0)
[2021-10-04 07:25] LABS: BLOOD UREA NITROGEN 11 MG/DL (7-18); CALCIUM LEVEL 8.6 MG/DL (8.8-10.2); CARBON DIOXIDE LEVEL 26 MEQ/L (21-32); CHLORIDE LEVEL 106 MEQ/L (98-107); GLOMERULAR FILTRATION RATE > 60.0 (>39); GLUCOSE, FASTING 110 MG/DL (70-100); POTASSIUM SERUM 4.4 MEQ/L (3.5-5.1); SODIUM LEVEL 139 MEQ/L (136-145)
[2021-10-04] MEDS: TIOTROPIUM INHALER/CAPSULE (SPIRIVA) INH SCH (08:00)
[2021-10-04] MEDS: ENOXAPARIN 40MG/0.4ML SYRINGE (J1650 PER 10MG) SC SCH (08:07)
[2021-10-04] MEDS: DOCUSATE SODIUM 100MG CAPSULE PO SCH ×2 (08:07→21:06)
[2021-10-04] MEDS: ATORVASTATIN 20 MG TAB PO SCH (08:07)
[2021-10-04] MEDS: ASPIRIN 81MG ENTERIC TABLET PO SCH (08:07)
[2021-10-04] MEDS: BRIMONIDINE 0.1% OPHTH SOLN 5 ML OU SCH ×2 (09:00→22:00)
--- NOTE | 2021-10-04 09:51 | IPNPDOC ---
Subjective Date Seen The patient was seen on 10/04/21. Subjective Chief Complaint/HPI No issues overnight. No fever or chills. Blood pressure has remained stable. Patient will be going for radiation this morning. Patient reports that she has been cold all night. She had breakfast. She is anxious and emotional saying "I do not want to stay here". She has dementia and is very forgetful. She is asking why she is in the hospital. Objective Physical Examination General Exam: Positive: Alert, Cooperative, No Acute Distress Eye Exam: Positive: PERRLA, Conjunctiva & lids normal, EOMI; Negative: Sclera icteric ENT Exam: Positive: Atraumatic, Mucous membr. 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 Patient complained of weakness, dizziness poor oral intake she also complained of abdominal pain. Patient reports that this morning she could not get out of bed because she was very weak and dizzy. EMS on arrival found her systolic blood pressure to be in 70s she was started on fluids and brought to the emergency room. In the ED she was still noted to be hypotensive so fluid loading was continued. Patient's blood pressure improved significantly after 2.5 L of fluid. Patient's last chemotherapy was on 09/27/2021. Labs in the ED showed a lactate of 2.7. Rest of the chemistry was within normal limits except for a blood sugar of 222. Her CBC showed chronic anemia with a hemoglobin of 10.9. There was no elevation of WBC. Patient had CT chest and CT abdomen and pelvis to evaluate for any infectious focus causing hypotension. The CT scans did not show any acute findings suggestive of infection. Patient was admitted for hypotension likely due to dehydration on the background of being on antihypertensive medications. CT chest: Unchanged lung masses as described above. Osseous changes as described above. Chronic lung field changes, exam limitations, and other findings as described above. CT abdomen and pelvis: The liver, gallbladder, spleen, pancreas, adrenal glands, and kidneys are unchanged. There are small left renal cyst status quo. The abdominal aorta and para-aortic regions are unchanged. There is no significant change in appearance of the travis wel loops or the mesenteries. There is colonic diverticulosis status quo. There is no evidence of a mass or adenopathy. There is no free fluid or free air. Bone window technique throughout the examination shows a grade 4 T12 anterior wedge-shaped compression fracture which has developed since the last exam. It is, however, unchanged compared to the CT of the chest of 06/24/2021. Spine final, hip, and sacroiliac joint degenerative changes are noted status quo. IMPRESSION: 1. T12 compression fracture as described above. 2. Right renal cysts status quo. 3. No evidence of acute disease. Other findings as described above. Hypotension Due to dehydration in the background of being on antihypertensives Responded to IV fluid We will hold antihypertensive medication WBC is not elevated. Procalcitonin is not elevated. CT abdomen and pelvis and CT chest with no , changes suggestive of infection No signs of infection at present so will hold off on antibiotics We did order cultures. Patient does have a Chemo-Port Recurrent Squamous cell lung cancer in the right lung Currently getting concomitant chemoradiation Aortic stenosis with a grade 1 diastolic dysfunction EF was 60 to 65% Mild as per echo in 2019. No signs of congestive heart failure We will get a new echo COPD Will give Spiriva and Symbicort in place of home inhaler Albuterol as needed Dementia Oriented x2. She reports that she does not remember all the things. Dyslipidemia. Continue on Lipitor. History of vulvar cancer, surgically treated in November 2019 Hypothyroidism. Continue on Synthroid. Bipolar disorder /depression/anxiety Continue Depakote, Latuda, Ativan History of cataract surgery and glaucoma on Alphagan. Plan/VTE VTE Prophylaxis Ordered?: Yes VS, I&O, 24H, Fishbone Vital Signs/I&O Vital Signs Date Time Temp Pulse Resp B/P (MAP) Pulse Ox O2 Delivery O2 Flow Rate FiO2 10/04/21 08:35 79 95 10/04/21 08:30 129/61 (83) 10/04/21 06:30 97.9 19 Room Air I&O- Last 24 Hours up to 6 AM 10/04/21 06:00 Intake Total 2630 ml Balance 2630 ml Laboratory Data 24H LABS Laboratory Tests 2 10/03/21 09:46: Immature Granulocyte % (Auto) 0.6, Neutrophils (%) (Auto) 82.4H, Lymphocytes (%) (Auto) 8.4L, Monocytes (%) (Auto) 7.9, Eosinophils (%) (Auto) 0.1, Basophils (%) (Auto) 0.6, Neutrophils # (Auto) 5.6, Lymphocytes # (Auto) 0.6L, Monocytes # (Auto) 0.5, Eosinophils # (Auto) 0.0, Basophils # (Auto) 0.0, Nucleated Red Blood Cells % (auto) 0.0, Blood Gas Bicarbonate Standard 21.9, Venous Blood pH 7.571H, Venous Blood Partial Pressure CO2 18.7L, Venous Blood Partial Pressure O2 193.8H, Venous Blood Total Carbon Dioxide 17.4L, Venous Blood HCO3 16.8L, Venous Blood Oxygen Saturation 99.0H, Venous Blood Base Excess -3.2L 10/03/21 10:02: Anion Gap 10, Glomerular Filtration Rate > 60.0, Lactic Acid Level 2.7*H, Calcium Level 8.7L, Total Bilirubin 0.4, Direct Bilirubin < 0.1, Aspartate Amino Transf (AST/SGOT) 31, Alanine Aminotransferase (ALT/SGPT) 34, Alkaline Ph osphatase 109, Total Creatine Kinase 35, Creatine Kinase MB < 1.0, Creatine Kinase MB Relative Index 2.86, Troponin I < 0.02, Total Protein 6.3L, Albumin 2.4L, Albumin/Globulin Ratio 0.6L, Lipase 67L, Procalcitonin <0.05, Thyroid Stimulating Hormone (TSH) 1.780 10/03/21 13:53: Coronavirus (COVID-19)(PCR) NEGATIVE, Influenza Type A (RT-PCR) NEGATIVE, Influenza Type B (RT-PCR) NEGATIVE, Respiratory Syncytial Virus (PCR) NEGATIVE 10/03/21 14:55: Lactic Acid Followup at 4 Hours 2.6*H 10/03/21 21:48: Bedside Glucose (Misc Panel) 118H 10/04/21 06:46: Immature Granulocyte % (Auto) 1.1, Neutrophils (%) (Auto) 58.0, Lymphocytes (%) (Auto) 22.8L, Monocytes (%) (Auto) 15.7H, Eosinophils (%) (Auto) 1.7, Basophils (%) (Auto) 0.7, Neutrophils # (Auto) 2.7, Lymphocytes # (Auto) 1.1L, Monocytes # (Auto) 0.7, Eosinophils # (Auto) 0.1, Basophils # (Auto) 0.0, Nucleated Red Blood Cells % (auto) 0.0, Anion Gap 7L, Glomerular Filtration Rate > 60.0, Lactic Acid Level 1.7, Calcium Level 8.6L CBC/BMP Laboratory Tests 10/03/21 09:46 10/03/21 10:02 10/04/21 06:46 Microbiology Microbiology 10/03/21 Blood Culture, Received Pending 10/03/21 Blood Culture, Received Pending Juana Belle MD Oct 04, 2021 09:51
[2021-10-04 14:00] VITALS: BP 97/71
[2021-10-04] MEDS: SYMBICORT 160/4.5MCG INHALER 6GM INH SCH (19:46)
[2021-10-04] MEDS: LURASIDONE HCL 40 MG TAB (LATUDA) PO SCH (21:06)
[2021-10-04] MEDS: DIVALPROEX 500MG *ER* TAB PO SCH (21:07)
[2021-10-04 22:00] VITALS: BP 113/66
[2021-10-05] MEDS: LEVOTHYROXINE 75MCG TABLET (0.075MG) PO SCH (05:33)
[2021-10-05 06:00] VITALS: BP 132/76
[2021-10-05 06:44] LABS: BASO # 0.1 10^3/uL (0.0-0.2); BASO % 1.1 % (0.0-1.0); EOS # 0.1 10^3/uL (0.0-0.5); EOS % 2.5 % (0.0-3.0); HEMATOCRIT 30.3 % (36.0-47.0); HEMOGLOBIN 10.2 g/dl (12.0-15.5); LYMPH # 1.1 10^3/uL (1.5-5.0); MEAN CORPUSCULAR HEMOGLOBIN 31.5 pg (27.0-33.0); MEAN CORPUSCULAR HGB CONC 33.7 g/dl (32.0-36.5); MEAN CORPUSCULAR VOLUME 93.5 fl (80.0-96.0); MONO # 0.8 10^3/uL (0.0-0.8); MONO % 18.3 % (2.0-8.0); NEUTROPHILS # 2.3 10^3/uL (1.5-8.5); NEUTROPHILS % 52.2 % (36.0-66.0); PLATELET COUNT, AUTOMATED 240 10^3/uL (150-450); RED BLOOD COUNT 3.24 10^6/uL (4.00-5.40); WHITE BLOOD COUNT 4.5 10^3/uL (4.0-10.0)
[2021-10-05 07:01] LABS: BLOOD UREA NITROGEN 15 MG/DL (7-18); CARBON DIOXIDE LEVEL 25 MEQ/L (21-32); CHLORIDE LEVEL 102 MEQ/L (98-107); CREATININE FOR GFR 0.47 MG/DL (0.55-1.30); GLOMERULAR FILTRATION RATE > 60.0 (>39); GLUCOSE, FASTING 95 MG/DL (70-100); POTASSIUM SERUM 4.5 MEQ/L (3.5-5.1); SODIUM LEVEL 134 MEQ/L (136-145)
[2021-10-05] MEDS: TIOTROPIUM INHALER/CAPSULE (SPIRIVA) INH SCH (08:00)
[2021-10-05] MEDS: SYMBICORT 160/4.5MCG INHALER 6GM INH SCH ×2 (08:40→20:21)
[2021-10-05] MEDS: BRIMONIDINE 0.1% OPHTH SOLN 5 ML OU SCH ×2 (09:00→20:11)
[2021-10-05] MEDS: DOCUSATE SODIUM 100MG CAPSULE PO SCH ×2 (10:00→20:12)
[2021-10-05] MEDS: ASPIRIN 81MG ENTERIC TABLET PO SCH (10:00)
[2021-10-05] MEDS: ATORVASTATIN 20 MG TAB PO SCH (10:00)
[2021-10-05] MEDS: ENOXAPARIN 40MG/0.4ML SYRINGE (J1650 PER 10MG) SC SCH (10:00)
[2021-10-05 14:00] VITALS: BP 120/72
--- NOTE | 2021-10-05 14:03 | ECHO ---
ECHOCARDIOGRAM DATE OF PROCEDURE: 10/04/2021 Age: 76 Gender: Female Height: 65 inches Weight: 194 pounds Body surface area: 1.95 m2 PATIENT LOCATION: Inpatient, currently in the emergency room. REFERRING PHYSICIAN: Juana Belle M.D. INDICATION: Murmur. MEASUREMENTS: 2D Measurements: RV - 3.1 cm LV - 4.1 cm Septum 1.1 cm Posterior wall 1.1 cm Aortic root 3.2 cm LA - 3.6 cm LVEF 65% Doppler Measurements: AV - 1.92 m/sec LVOT - 0.87 m/sec LVOT diameter 2.0 cm Mean AV systolic gradient 8 mmHg MV-E 63, A 121, EA ratio 0.5 Early mitral deceleration time 174 msec E prime medial 4.7 A prime medial 8.8 E prime lateral 7 Average E/E prime ratio 10.8/PCWP 15.3 mmHg PV - 0.8 m/sec Pulmonary artery acceleration time 137 msec PASP - 21 mmHg IVC - 1.8 cm COMMENTS: Normal sinus rhythm without intraventricular conduction disturbance. M-mode and 2-dimensional cardiography was performed with pulse, continuous wave, color flow and tissue Doppler studies. Normal left ventricular size, wall thickness and wall motion. Normal left atrial size with grade 1 left ventricular (LV) diastolic dysfunction, but normal estimated mean left atrial pressure. Normal right heart chamber sizes, wall motion and estimated pulmonary arterial pressure. Normal inferior vena cava (IVC) size and collapse against an elevated central venous pressure. Normal aortic dimensions. Mild aortic valvular sclerosis without stenosis, but very mild insufficiency. Mild degenerative changes of the mitral valvular apparatus without functional abnormality. Normal appearing tricuspid valve with very mild insufficiency. No apparent intracardiac mass or pericardial effusion.
[2021-10-05] MEDS: LURASIDONE HCL 40 MG TAB (LATUDA) PO SCH (20:11)
[2021-10-05] MEDS: DIVALPROEX 500MG *ER* TAB PO SCH (20:12)
[2021-10-06] MEDS: LEVOTHYROXINE 75MCG TABLET (0.075MG) PO SCH (05:28)
[2021-10-06 05:47] VITALS: BP 118/72
[2021-10-06 06:12] LABS: BASO # 0.1 10^3/uL (0.0-0.2); BASO % 1.2 % (0.0-1.0); EOS # 0.1 10^3/uL (0.0-0.5); EOS % 2.6 % (0.0-3.0); HEMATOCRIT 32.2 % (36.0-47.0); HEMOGLOBIN 10.7 g/dl (12.0-15.5); LYMPH # 1.1 10^3/uL (1.5-5.0); LYMPH % 21.3 % (24.0-44.0); MEAN CORPUSCULAR HEMOGLOBIN 31.3 pg (27.0-33.0); MEAN CORPUSCULAR HGB CONC 33.2 g/dl (32.0-36.5); MEAN CORPUSCULAR VOLUME 94.2 fl (80.0-96.0); MONO # 0.9 10^3/uL (0.0-0.8); MONO % 16.8 % (2.0-8.0); NEUTROPHILS # 2.9 10^3/uL (1.5-8.5); NEUTROPHILS % 56.9 % (36.0-66.0); PLATELET COUNT, AUTOMATED 270 10^3/uL (150-450); RED BLOOD COUNT 3.42 10^6/uL (4.00-5.40); WHITE BLOOD COUNT 5.1 10^3/uL (4.0-10.0)
[2021-10-06 06:37] LABS: BLOOD UREA NITROGEN 15 MG/DL (7-18); CALCIUM LEVEL 8.9 MG/DL (8.8-10.2); CARBON DIOXIDE LEVEL 25 MEQ/L (21-32); CHLORIDE LEVEL 102 MEQ/L (98-107); CREATININE FOR GFR 0.63 MG/DL (0.55-1.30); GLOMERULAR FILTRATION RATE > 60.0 (>39); GLUCOSE, FASTING 80 MG/DL (70-100); POTASSIUM SERUM 4.4 MEQ/L (3.5-5.1); SODIUM LEVEL 135 MEQ/L (136-145)
[2021-10-06] MEDS: TIOTROPIUM INHALER/CAPSULE (SPIRIVA) INH SCH (07:18)
[2021-10-06] MEDS: SYMBICORT 160/4.5MCG INHALER 6GM INH SCH ×2 (07:18→19:57)
--- NOTE | 2021-10-06 07:31 | ECGEPIP ---
[facility] - ED Test Date: 2021-10-03 Pat Name: MAITE BELLA Department: Room: - Gender: Female Integration Analyst: ADRY : 1945 Requested By: Veronica Garcia Order Number: [id number] Reading MD: Veronica Garcia Measurements Intervals [place] Rate: 97 P: 44 ND: 176 QRS: -43 QRSD: 92 T: 37 QT: 376 QTc: 477 Interpretive Statements Normal sinus rhythm Left axis deviation Possible Anterior infarct , age undetermined NSTTW abnormalities similar 06/24/21 Electronically Signed on 10-06-2021 7:30:56 EST by Veronica Garcia
[2021-10-06] MEDS: BRIMONIDINE 0.1% OPHTH SOLN 5 ML OU SCH ×2 (09:11→21:02)
[2021-10-06] MEDS: ATORVASTATIN 20 MG TAB PO SCH (09:11)
[2021-10-06] MEDS: ASPIRIN 81MG ENTERIC TABLET PO SCH (09:11)
[2021-10-06] MEDS: ENOXAPARIN 40MG/0.4ML SYRINGE (J1650 PER 10MG) SC SCH (09:11)
[2021-10-06] MEDS: DOCUSATE SODIUM 100MG CAPSULE PO SCH ×2 (09:12→21:00)
[2021-10-06] MEDS: LURASIDONE HCL 40 MG TAB (LATUDA) PO SCH (21:01)
[2021-10-06] MEDS: DIVALPROEX 500MG *ER* TAB PO SCH (21:01)
[2021-10-07 06:00] VITALS: BP 103/53
[2021-10-07] MEDS: LEVOTHYROXINE 75MCG TABLET (0.075MG) PO SCH (06:47)
[2021-10-07] MEDS: SYMBICORT 160/4.5MCG INHALER 6GM INH SCH ×2 (07:30→20:47)
[2021-10-07] MEDS: TIOTROPIUM INHALER/CAPSULE (SPIRIVA) INH SCH (07:30)
[2021-10-07] MEDS: ASPIRIN 81MG ENTERIC TABLET PO SCH (09:23)
[2021-10-07] MEDS: DOCUSATE SODIUM 100MG CAPSULE PO SCH ×2 (09:23→19:59)
[2021-10-07] MEDS: ATORVASTATIN 20 MG TAB PO SCH (09:23)
[2021-10-07] MEDS: ENOXAPARIN 40MG/0.4ML SYRINGE (J1650 PER 10MG) SC SCH (09:24)
[2021-10-07] MEDS: BRIMONIDINE 0.1% OPHTH SOLN 5 ML OU SCH ×2 (09:24→19:58)
[2021-10-07] MEDS ORDERED: ACETAMINOPHEN TAB 650MG DOSE (2X325MG) PO PRN (19:40)
[2021-10-07] MEDS: DIVALPROEX 500MG *ER* TAB PO SCH (19:58)
[2021-10-07] MEDS: LURASIDONE HCL 40 MG TAB (LATUDA) PO SCH (19:58)
[2021-10-08] MEDS: LEVOTHYROXINE 75MCG TABLET (0.075MG) PO SCH (05:36)
[2021-10-08 06:00] VITALS: BP 124/69
[2021-10-08 06:25] LABS: BASO # 0.1 10^3/uL (0.0-0.2); BASO % 1.3 % (0.0-1.0); EOS # 0.1 10^3/uL (0.0-0.5); EOS % 1.8 % (0.0-3.0); HEMATOCRIT 32.5 % (36.0-47.0); HEMOGLOBIN 10.8 g/dl (12.0-15.5); LYMPH # 1.1 10^3/uL (1.5-5.0); LYMPH % 24.3 % (24.0-44.0); MEAN CORPUSCULAR HEMOGLOBIN 31.3 pg (27.0-33.0); MEAN CORPUSCULAR HGB CONC 33.2 g/dl (32.0-36.5); MEAN CORPUSCULAR VOLUME 94.2 fl (80.0-96.0); MONO # 0.6 10^3/uL (0.0-0.8); MONO % 13.8 % (2.0-8.0); NEUTROPHILS # 2.6 10^3/uL (1.5-8.5); PLATELET COUNT, AUTOMATED 286 10^3/uL (150-450); RED BLOOD COUNT 3.45 10^6/uL (4.00-5.40); WHITE BLOOD COUNT 4.5 10^3/uL (4.0-10.0)
[2021-10-08 06:46] LABS: BLOOD UREA NITROGEN 13 MG/DL (7-18); CARBON DIOXIDE LEVEL 25 MEQ/L (21-32); CHLORIDE LEVEL 106 MEQ/L (98-107); CREATININE FOR GFR 0.53 MG/DL (0.55-1.30); GLOMERULAR FILTRATION RATE > 60.0 (>39); GLUCOSE, FASTING 96 MG/DL (70-100); POTASSIUM SERUM 4.6 MEQ/L (3.5-5.1); SODIUM LEVEL 138 MEQ/L (136-145)
[2021-10-08] MEDS: TIOTROPIUM INHALER/CAPSULE (SPIRIVA) INH SCH (07:09)
[2021-10-08] MEDS: SYMBICORT 160/4.5MCG INHALER 6GM INH SCH (07:10)
[2021-10-08] MEDS: ASPIRIN 81MG ENTERIC TABLET PO SCH (08:21)
[2021-10-08] MEDS: DOCUSATE SODIUM 100MG CAPSULE PO SCH (08:21)
[2021-10-08] MEDS: ENOXAPARIN 40MG/0.4ML SYRINGE (J1650 PER 10MG) SC SCH (08:22)
[2021-10-08] MEDS: ATORVASTATIN 20 MG TAB PO SCH (08:22)
[2021-10-08] MEDS: BRIMONIDINE 0.1% OPHTH SOLN 5 ML OU SCH (09:00)
--- NOTE | 2021-10-08 22:23 | DS.PDOC ---
Discharge Summary General Date of Admission Oct 03, 2021 at 13:55 Date of Discharge 10/08/21 Discharge Summary PROCEDURES PERFORMED DURING STAY: [None]. DISCHARGE DIAGNOSES: Hypotension due to dehydration and medications. 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 Squamous cell cancer of the vulva treated surgically in Nov 2020 Aortic stenosis Grade 1 diastolic dysfunction Hypertension, Diabetes, Hyperlipidemia, metabolic syndrome, COPD, bipolar disorder with depression, nonacute fracture of T12, Dementia Generalized deconditioning and difficulty in ambulation Glaucoma History of SIADH, nd Hyponatremia. Chronic anemia COMPLICATIONS/CHIEF COMPLAINT: Hypotension,Lactic Acidosis,Primary Cancer Of R Barb. HOSPITAL COURSE: 76-year-old on concurrent chemo RT for recurrent squamous cell lung cancer of her right upper lobe of lung, resident of [facility] assisted living was sent to the emergency room for low blood pressures noted at [facility]. Patient complained of weakness, dizziness poor oral intake she also complained of abdominal pain. Patient reports that this morning she could not get out of bed because she was very weak and dizzy. EMS on arrival found her systolic blood pressure to be in 70s she was started on fluids and brought to the emergency room. In the ED she was still noted to be hypotensive so fluid loading was continued. Patient's blood pressure improved significantly after 2.5 L of fluid. Patient's last chemotherapy was on 09/27/2021. Labs in the ED showed a lactate of 2.7. Rest of the chemistry was within normal limits except for a blood sugar of 222. Her CBC showed chronic anemia with a hemoglobin of 10.9. There was no elevation of WBC. Patient had CT chest and CT abdomen and pelvis to evaluate for any infectious focus causing hypotension. The CT scans did not show any acute findings suggestive of infection. Patient was admitted for hypotension likely due to dehydration on the background of being on antihypertensive medications. Antihypertensive medications have been discontinued as blood pressure remained in the low normal range during hospitalization. Hypotension Due to dehydration in the background of being on antihypertensives Responded to IV fluid We will hold antihypertensive medication WBC is not elevated. Procalcitonin is not elevated. CT abdomen and pelvis and CT chest with no changes suggestive of infection No signs of infection at present so will hold off on antibiotics Cultures negative till date Recurrent Squamous cell lung cancer in the right lung Currently getting concomitant chemoradiation Aortic stenosis with a grade 1 diastolic dysfunction EF was 60 to 65% Mild as per echo in 2019. No signs of congestive heart failure We will get a new echo COPD Continue home inhalers Albuterol as needed Dementia Oriented x2. She reports that she does not remember all the things. Dyslipidemia. Continue on Lipitor. History of vulvar cancer, surgically treated in November 2019 Hypothyroidism. Continue on Synthroid. Bipolar disorder /depression/anxiety Continue Depakote, Latuda, Ativan History of cataract surgery and glaucoma on Alphagan. DISCHARGE MEDICATIONS: Please see below. ALLERGIES: Please see below. PHYSICAL EXAMINATION ON DISCHARGE: VITAL SIGNS: Please see below. General Exam: Positive: Alert, Cooperative, No Acute Distress Eye Exam: Positive: PERRLA, Conjunctiva & lids normal, EOMI; Negative: Sclera icteric ENT Exam: Positive: Atraumatic, Mucous membr. moist/pink, Pharynx Normal Neck Exam: Positive: Supple; Negative: JVD, thyromegaly Chest Exam: Positive: Clear to auscultation, Normal air movement Heart Exam: Positive: Rate Normal, Regular Rhythm, Normal S1, Normal S2, Murmurs (Systolic murmur present); Negative: Rubs Abdomen Exam: Positive: Normal bowel sounds, Soft; Negative: Tenderness, Hepatosplenomegaly Extremity Exam: Negative: Clubbing, Cyanosis, Edema Psych Exam: Positive: Anxiety, Other (Oriented x2 in place and person) LABORATORY DATA: Please see below. IMAGING: CT chest: Unchanged lung masses as described above. Osseous changes as described above. Chronic lung field changes, exam limitations, and other findings as described above. CT abdomen and pelvis: The liver, gallbladder, spleen, pancreas, adrenal glands, and kidneys are unchanged. There are small left renal cyst status quo. The abdominal aorta and para-aortic regions are unchanged. There is no significant change in appearance of the bowel loops or the mesenteries. There is colonic diverticulosis status quo. There is no evidence of a mass or adenopathy. There is no free fluid or free air. Bone window technique throughout the examination shows a grade 4 T12 anterior wedge-shaped compression fracture which has developed since the last exam. It is, however, unchanged compared to the CT of the chest of 06/24/2021. Spine final, hip, and sacroiliac joint degenerative changes are noted status quo. IMPRESSION: 1. T12 compression fracture as described above. 2. Right renal cysts status quo. 3. No evidence of acute disease. Other findings as described above. ECHO: Normal sinus rhythm without intraventricular conduction disturbance. M-mode and 2-dimensional cardiography was performed with pulse, continuous wave, color flow and tissue Doppler studies. Normal left ventricular size, wall thickness and wall motion. EF of 65% Normal left atrial size with grade 1 left ventricular (LV) diastolic dysfunction, but normal estimated mean left atrial pressure. Normal right heart chamber sizes, wall motion and estimated pulmonary arterial pressure. Normal inferior vena cava (IVC) size and collapse against an elevated central venous pressure. Normal aortic dimensions. Mild aortic valvular sclerosis without stenosis, but very mild insufficiency. Mild degenerative changes of the mitral valvular apparatus without functional abnormality. Normal appearing tricuspid valve with very mild insufficiency. No apparent intracardiac mass or pericardial effusion. ACTIVITY: [As tolerated]. DIET: As tolerated DISCHARGE PLAN: [facility] assisted living DISCHARGE INSTRUCTIONS: Follow-up with oncology and radiation oncology as per outpatient schedule Follow-up on the result of new echo ITEMS TO FOLLOWUP ON ON OUTPATIENT: Follow-up final blood cultures DISCHARGE CONDITION: [Stable]. TIME SPENT ON DISCHARGE: 35 minutes. Vital Signs/I&Os Vital Signs Date Time Temp Pulse Resp B/P (MAP) Pulse Ox O2 Delivery O2 Flow Rate FiO2 10/08/21 06:00 98.0 79 20 124/69 (87) 94 Room Air I&O- Last 24 Hours up to 6 AM 10/08/21 06:59 Intake Total 1230 ml Balance 1230 ml Laboratory Data Labs 24H Laboratory Tests 2 10/08/21 05:48: Immature Granulocyte % (Auto) 1.8, Neutrophils (%) (Auto) 57.0, Lymphocytes (%) (Auto) 24.3, Monocytes (%) (Auto) 13.8H, Eosinophils (%) (Auto) 1.8, Basophils (%) (Auto) 1.3H, Neutrophils # (Auto) 2.6, Lymphocytes # (Auto) 1.1L, Monocytes # (Auto) 0.6, Eosinophils # (Auto) 0.1, Basophils # (Auto) 0.1, Nucleated Red Blood Cells % (auto) 0.0, Anion Gap 7L, Glomerular Filtration Rate > 60.0, Ca lcium Level 9.0 CBC/BMP Laboratory Tests 10/08/21 05:48 Microbiology Microbiology 10/03/21 Blood Culture - Final, Complete NO GROWTH AFTER 5 DAYS 10/03/21 Blood Culture - Final, Complete NO GROWTH AFTER 5 DAYS Discharge Medications Scheduled Aspirin (Aspirin EC) 81 Mg Tablet.dr, 81 MG PO DAILY, (Reported) Atorvastatin Calcium (Atorvastatin Calcium) 20 Mg Tablet, 20 MG PO DAILY, (Reported) Brimonidine Tartrate (Alphagan P) 0.1% 5ML Drops, 1 DROP OU BID, (Reported) Divalproex Sodium (Divalproex Sodium ER) 500 Mg Tab.er.24h, 2,000 MG PO QHS, (Reported) Docusate Sodium (Stool Softener) 100 Mg Capsule, 100 MG PO BID, (Reported) Levothyroxine Sodium (Synthroid) 75 Mcg Tablet, 75 MCG PO DAILY, (Reported) Lurasidone HCl (Latuda) 80 Mg Tablet, 80 MG PO QHS, (Reported) Multivitamins (Thera M Plus Tablet) 1 Each Tablet, 1 TAB PO DAILY, (Reported) Nystatin (Nystatin) 15 Gm Cream..g., 1 APLCT TOP BID, (Reported) APPLY UNDER BREASTS, ABDOMEN AND GROIN Umeclidinium Brm/Vilanterol Tr (Anoro Ellipta 62.5-25 Mcg INH) 1 Each Blst.w.dev, 1 PUFF INH DAILY, (Reported) Scheduled PRN Acetaminophen (Acetaminophen) 325 Mg Tablet, 650 MG PO Q4H PRN for PAIN LEVEL 1- 5, (Reported) Albuterol Sulfate (Proair Hfa) 8.5 Gm Hfa.aer.ad, 2 PUFF INH Q4H PRN for SOB/WHEEZING, (Reported) Lorazepam (Ativan) 0.5 Mg Tablet, 0.5 MG PO Q12H PRN for ANXIETY, (Reported) Magnesium Hydroxide (Milk of Magnesia) 400 Mg/5 Ml Oral.susp, 30 ML PO DAILY PRN for CONSTIPATION, (Reported) Melatonin (Melatonin) 5 Mg Capsule, 5 MG PO QHS PRN for INSOMNIA, (Reported) Ondansetron HCl (Ondansetron HCl) 8 Mg Tablet, 8 MG PO Q12H PRN for NAUSEA OR VOMITING, (Reported) Oxycodone HCl (Oxycodone HCl) 5 Mg Tablet, 5 MG PO Q4H PRN for PAIN LEVEL 5-10, (Reported) Allergies Coded Allergies: loratadine (Verified Adverse Reaction, Mild, NERVOUS, 10/04/20) nicotine (Verified Adverse Reaction, Mild, PALPITATIONS, 10/04/20) Juana Belle MD Oct 08, 2021 22:23
== END 2021-10-08 11:25 | DRG 315 ==
LOC: EDBD 09:38 → M ED 09:38 → M ED INP 13:55 → ENRESERV 10-04 12:15 → M MS5PR 10-04 13:25
PROVIDERS: ADMIT Internal Medicine Nephrology; ATTEND Internal Medicine Nephrology
DX: I95.9 Hypotension, unspecified (principal); C34.11 Malignant neoplasm of upper lobe, right bronchus or lung; S22.080A Wedge compression fracture of T11-T12 vertebra, initial encounter for closed fracture; F03.90 Unspecified dementia, unspecified severity, without behavioral disturbance, psychotic disturbance, mood disturbance, and anxiety; E78.5 Hyperlipidemia, unspecified; E03.9 Hypothyroidism, unspecified; F31.9 Bipolar disorder, unspecified; F32.A Depression, unspecified; F41.9 Anxiety disorder, unspecified; Z98.49 Cataract extraction status, unspecified eye; H40.9 Unspecified glaucoma; Z79.82 Long term (current) use of aspirin; Z79.899 Other long term (current) drug therapy; Z88.8 Allergy status to other drugs, medicaments and biological substances; I10 Essential (primary) hypertension; E11.9 Type 2 diabetes mellitus without complications; J44.9 Chronic obstructive pulmonary disease, unspecified; E86.0 Dehydration; I35.0 Nonrheumatic aortic (valve) stenosis; D14.31 Benign neoplasm of right bronchus and lung; X58.XXXA Exposure to other specified factors, initial encounter; Y92.9 Unspecified place or not applicable

== ENCOUNTER → 2021-10-16 | Outpatient (RCR) | payer MEDICARE, MEDICAID ==
[~2021-10-16] MED LIST changes: -LATU80TA; -LATU80TA PO; +LATU80TA2; +LATU80TA2 PO; +LOSA50TA28; +LOSA50TA28 PO; -LOSA50TA88; -LOSA50TA88 PO; +MIRA1POW3 PO; +MM S100C PO; +ONDA-84 PO; -ONDA8TAB10 PO; -PROC10TA4 PO; +PROC10TA5 PO; +TRIA1CR80 TOP
== END ==
LOC: M ONCR 09-17 09:20
PROVIDERS: ATTEND General Practice
DX: C34.11 Malignant neoplasm of upper lobe, right bronchus or lung (principal)

== ENCOUNTER 2021-10-25 09:41 | Outpatient (RCR) | payer MEDICARE, MEDICAID ==
[~2021-10-25 09:41] MED LIST changes: +LATU80TA; +LATU80TA PO; -LATU80TA2; -LATU80TA2 PO; -LOSA50TA28; -LOSA50TA28 PO; +LOSA50TA88; +LOSA50TA88 PO; -MIRA1POW3 PO; -ONDA-84 PO; +ONDA8TAB10 PO; +PROC10TA4 PO; -PROC10TA5 PO; -TRIA1CR80 TOP
== END 2021-11-16 ==
LOC: M ONCR 09:41
PROVIDERS: ATTEND General Practice
DX: C34.11 Malignant neoplasm of upper lobe, right bronchus or lung (principal)

== ENCOUNTER 2021-12-22 16:06 | Inpatient (IN) | payer MEDICARE, MEDICAID ==
[~2021-12-22] VITALS: Ht 170.2 cm; Wt 86.3 kg
[~2021-12-22 16:06] MED LIST changes: -LATU80TA; -LATU80TA PO; +LATU80TA2; +LATU80TA2 PO; +LOSA50TA28; +LOSA50TA28 PO; -LOSA50TA88; -LOSA50TA88 PO; +ONDA-84 PO; -ONDA8TAB10 PO; -PROC10TA4 PO; +PROC10TA5 PO; +TRIA1CR80 TOP
[2021-12-22 17:09] LABS: HEMATOCRIT 43.4 % (36.0-47.0); HEMOGLOBIN 14.6 g/dl (12.0-15.5); MEAN CORPUSCULAR HEMOGLOBIN 31.8 pg (27.0-33.0); MEAN CORPUSCULAR HGB CONC 33.6 g/dl (32.0-36.5); MEAN CORPUSCULAR VOLUME 94.6 fl (80.0-96.0); PLATELET COUNT, AUTOMATED 251 10^3/uL (150-450); RED BLOOD COUNT 4.59 10^6/uL (4.00-5.40)
[2021-12-22] MEDS ORDERED: cefTRIAXone SOD 2 GM in D5W MINI-BAG PLUS 50 ML IV ONE (17:40)
[2021-12-22] MEDS ORDERED: ACETAMINOPHEN 650 MG SUPP PR ONE (17:40)
[2021-12-22] MEDS ORDERED: ACETAMINOPHEN 325 MG SUPP PR ONE (17:40)
[2021-12-22 17:42] LABS: ALBUMIN 3.4 GM/DL (3.2-5.2); ALT/SGPT 32 U/L (12-78); BILIRUBIN,DIRECT 0.1 MG/DL (0.0-0.2); BILIRUBIN,TOTAL 0.4 MG/DL (0.2-1.0); BLOOD UREA NITROGEN 10 MG/DL (7-18); CALCIUM LEVEL 9.3 MG/DL (8.8-10.2); CARBON DIOXIDE LEVEL 23 MEQ/L (21-32); CHLORIDE LEVEL 99 MEQ/L (98-107); CREATININE FOR GFR 0.81 MG/DL (0.55-1.30); GLOMERULAR FILTRATION RATE > 60.0 (>39); GLUCOSE, FASTING 213 MG/DL (70-100); POTASSIUM SERUM 4.8 MEQ/L (3.5-5.1); SODIUM LEVEL 130 MEQ/L (136-145); TOTAL PROTEIN 7.8 GM/DL (6.4-8.2)
[2021-12-22 17:43] LABS: ATYPICAL LYMPH 3 % (0-5); BASOPHILS 2 % (0-1); LYMPHOCYTES 2 % (16-44); MONOCYTES 2 % (0-5); NEUTROPHILS 78 % (28-66)
[2021-12-22 17:45] LABS: PLATELET CLUMPS SMALL AMT; PLATELET ESTIMATE NORMAL (NORMAL); TOXIC VACUOLATION 1+
[2021-12-22] MEDS ORDERED: NS 1,000 ML IV ONE ×2 (17:50→19:25)
[2021-12-22] MEDS ORDERED: MIRA1POW3 PO (19:17)
[2021-12-22] MEDS ORDERED: HOME MED LIST COMPLETE! XX SCH (19:20)
[2021-12-22] MEDS ORDERED: ONDANSETRON 4 MG TAB PO PRN (19:25)
[2021-12-22] MEDS ORDERED: ALBUTEROL 90 MCG/ACT 8GM HFA INHALER INH PRN (19:25)
[2021-12-22] MEDS ORDERED: ACETAMINOPHEN *IV* 650 MG in IV 1 EA IV ONE (19:25)
[2021-12-22] MEDS: HumaLOG INSULIN (NovoLOG) PER UNIT SC SCH (21:00)
[2021-12-22] MEDS: LURASIDONE HCL 40MG TAB (LATUDA) PO SCH (21:00)
[2021-12-22 21:12] VITALS: BP 138/86
[2021-12-22] MEDS: DIVALPROEX 500MG *ER* TAB PO SCH (21:56)
[2021-12-22] MEDS: ATORVASTATIN 20 MG TAB PO SCH (21:56)
[2021-12-22 23:08] LABS: INR 1.03; PARTIAL THROMBOPLASTIN TIME 23.4 SECONDS (25.9-37.0); PROTHROMBIN TIME 13.9 SECONDS (12.7-14.5)
[2021-12-22] MEDS: NS 1,000 ML IV SCH (23:09)
[2021-12-22] MEDS: BRIMONIDINE 0.1% OPHTH SOLN 5 ML OU SCH (23:20)
[2021-12-22] MEDS: NYSTATIN CREAM 15 GM TOP SCH (23:21)
[2021-12-23] MEDS ORDERED: GLUCOSE 4GM CHEW TABLET PO PRN (00:25)
[2021-12-23] MEDS ORDERED: GLUCAGON INJ 1MG VIAL SC PRN (00:25)
[2021-12-23] MEDS ORDERED: DEXTROSE 50% 50 ML SYRINGE IV PRN (00:25)
[2021-12-23] MEDS: NS 1,000 ML IV SCH ×3 (03:46→12:16)
[2021-12-23 06:00] VITALS: BP 139/86
[2021-12-23] MEDS: LEVOTHYROXINE 75MCG TABLET (0.075MG) PO SCH (06:05)
[2021-12-23] MEDS: CEFEPIME HCL 2 GM in D5W MINI-BAG PLUS 50 ML IV SCH ×2 (06:06→17:39)
[2021-12-23 07:18] LABS: HEMATOCRIT 36.1 % (36.0-47.0); MEAN CORPUSCULAR HEMOGLOBIN 32.4 pg (27.0-33.0); MEAN CORPUSCULAR HGB CONC 33.5 g/dl (32.0-36.5); MEAN CORPUSCULAR VOLUME 96.8 fl (80.0-96.0); PLATELET COUNT, AUTOMATED 221 10^3/uL (150-450); RED BLOOD COUNT 3.73 10^6/uL (4.00-5.40); WHITE BLOOD COUNT 13.8 10^3/uL (4.0-10.0)
[2021-12-23 07:21] LABS: HEMOGLOBIN 12.1 g/dl (12.0-15.5)
[2021-12-23 07:30] LABS: BLOOD UREA NITROGEN 6 MG/DL (7-18); CALCIUM LEVEL 8.4 MG/DL (8.8-10.2); CARBON DIOXIDE LEVEL 23 MEQ/L (21-32); CHLORIDE LEVEL 104 MEQ/L (98-107); GLOMERULAR FILTRATION RATE > 60.0 (>39); GLUCOSE, FASTING 137 MG/DL (70-100); POTASSIUM SERUM 3.6 MEQ/L (3.5-5.1); SODIUM LEVEL 136 MEQ/L (136-145); VALPROIC ACID (DEPAKOTE) 89.5 UG/ML (50.0-100.0)
[2021-12-23] MEDS: ENOXAPARIN 40MG/0.4ML SYRINGE (J1650 PER 10MG) SC SCH (09:40)
[2021-12-23] MEDS: ASPIRIN 81MG ENTERIC TABLET PO SCH (09:40)
[2021-12-23] MEDS: ACETAMINOPHEN TAB 650MG DOSE (2X325MG) PO PRN (09:40)
[2021-12-23] MEDS: NYSTATIN CREAM 15 GM TOP SCH ×2 (09:41→22:20)
[2021-12-23] MEDS: HumaLOG INSULIN (NovoLOG) PER UNIT SC SCH ×4 (09:41→21:00)
[2021-12-23] MEDS: BRIMONIDINE 0.1% OPHTH SOLN 5 ML OU SCH ×2 (09:41→22:19)
[2021-12-23 14:00] VITALS: BP 106/68
[2021-12-23] MEDS: ATORVASTATIN 20 MG TAB PO SCH (20:57)
[2021-12-23] MEDS: LURASIDONE HCL 40MG TAB (LATUDA) PO SCH (20:57)
[2021-12-23] MEDS: DIVALPROEX 500MG *ER* TAB PO SCH (20:59)
[2021-12-23 22:00] VITALS: BP 142/61
[2021-12-24] MEDS: ACETAMINOPHEN TAB 650MG DOSE (2X325MG) PO PRN ×2 (02:28→15:57)
[2021-12-24] MEDS: LEVOTHYROXINE 75MCG TABLET (0.075MG) PO SCH (05:18)
[2021-12-24] MEDS: CEFEPIME HCL 2 GM in D5W MINI-BAG PLUS 50 ML IV SCH ×2 (05:19→17:31)
[2021-12-24 05:49] LABS: HEMATOCRIT 33.8 % (36.0-47.0); HEMOGLOBIN 11.3 g/dl (12.0-15.5); MEAN CORPUSCULAR HEMOGLOBIN 31.9 pg (27.0-33.0); MEAN CORPUSCULAR HGB CONC 33.4 g/dl (32.0-36.5); MEAN CORPUSCULAR VOLUME 95.5 fl (80.0-96.0); PLATELET COUNT, AUTOMATED 212 10^3/uL (150-450); RED BLOOD COUNT 3.54 10^6/uL (4.00-5.40); WHITE BLOOD COUNT 7.8 10^3/uL (4.0-10.0)
[2021-12-24 06:00] VITALS: BP 125/57
[2021-12-24 06:20] LABS: BLOOD UREA NITROGEN 8 MG/DL (7-18); CALCIUM LEVEL 8.5 MG/DL (8.8-10.2); CARBON DIOXIDE LEVEL 23 MEQ/L (21-32); CHLORIDE LEVEL 106 MEQ/L (98-107); CREATININE FOR GFR 0.43 MG/DL (0.55-1.30); GLOMERULAR FILTRATION RATE > 60.0 (>39); GLUCOSE, FASTING 120 MG/DL (70-100); POTASSIUM SERUM 3.4 MEQ/L (3.5-5.1); SODIUM LEVEL 139 MEQ/L (136-145)
[2021-12-24] MEDS ORDERED: POTASSIUM CHLORIDE 10MEQ SR TABLET PO ONE (07:30)
[2021-12-24] MEDS: HumaLOG INSULIN (NovoLOG) PER UNIT SC SCH ×4 (07:30→20:39)
[2021-12-24 09:00] VITALS: BP 133/73
[2021-12-24] MEDS: ASPIRIN 81MG ENTERIC TABLET PO SCH (09:19)
[2021-12-24] MEDS: ENOXAPARIN 40MG/0.4ML SYRINGE (J1650 PER 10MG) SC SCH (09:19)
[2021-12-24] MEDS: BRIMONIDINE 0.1% OPHTH SOLN 5 ML OU SCH ×2 (09:20→20:40)
[2021-12-24] MEDS: NYSTATIN CREAM 15 GM TOP SCH ×2 (09:20→20:40)
[2021-12-24 14:00] VITALS: BP 118/68
[2021-12-24] MEDS: LURASIDONE HCL 40MG TAB (LATUDA) PO SCH (17:28)
[2021-12-24] MEDS: ATORVASTATIN 20 MG TAB PO SCH (20:37)
[2021-12-24] MEDS: LACTOBACILLUS ACIDOPHILUS CAP (BACID) PO SCH (20:37)
[2021-12-24] MEDS: DIVALPROEX 500MG *ER* TAB PO SCH (20:38)
[2021-12-24 22:00] VITALS: BP 157/86
[2021-12-24] MEDS: oxyCODONE 5MG TAB PO PRN (22:40)
[2021-12-25 06:00] VITALS: BP 172/84
[2021-12-25] MEDS: LEVOTHYROXINE 75MCG TABLET (0.075MG) PO SCH (06:19)
[2021-12-25] MEDS: CEFEPIME HCL 2 GM in D5W MINI-BAG PLUS 50 ML IV SCH (06:19)
[2021-12-25 06:49] LABS: BLOOD UREA NITROGEN 11 MG/DL (7-18); CALCIUM LEVEL 8.8 MG/DL (8.8-10.2); CARBON DIOXIDE LEVEL 23 MEQ/L (21-32); CHLORIDE LEVEL 107 MEQ/L (98-107); CREATININE FOR GFR 0.41 MG/DL (0.55-1.30); GLOMERULAR FILTRATION RATE > 60.0 (>39); GLUCOSE, FASTING 93 MG/DL (70-100); POTASSIUM SERUM 4.2 MEQ/L (3.5-5.1); SODIUM LEVEL 137 MEQ/L (136-145)
[2021-12-25] MEDS: HumaLOG INSULIN (NovoLOG) PER UNIT SC SCH ×4 (07:30→21:00)
[2021-12-25 08:00] VITALS: BP 172/82
[2021-12-25 08:54] LABS: HEMATOCRIT 38.3 % (36.0-47.0); HEMOGLOBIN 12.7 g/dl (12.0-15.5); MEAN CORPUSCULAR HEMOGLOBIN 31.8 pg (27.0-33.0); MEAN CORPUSCULAR HGB CONC 33.2 g/dl (32.0-36.5); PLATELET COUNT, AUTOMATED 236 10^3/uL (150-450); RED BLOOD COUNT 3.99 10^6/uL (4.00-5.40); WHITE BLOOD COUNT 5.9 10^3/uL (4.0-10.0)
[2021-12-25] MEDS: ASPIRIN 81MG ENTERIC TABLET PO SCH (10:19)
[2021-12-25] MEDS: DOXYCYCLINE HYCLATE 100MG TABLET PO SCH ×2 (10:20→21:14)
[2021-12-25] MEDS: ENOXAPARIN 40MG/0.4ML SYRINGE (J1650 PER 10MG) SC SCH (10:21)
[2021-12-25] MEDS: BRIMONIDINE 0.1% OPHTH SOLN 5 ML OU SCH ×2 (10:21→21:14)
[2021-12-25] MEDS: NYSTATIN CREAM 15 GM TOP SCH ×2 (10:22→21:14)
[2021-12-25] MEDS: LACTOBACILLUS ACIDOPHILUS CAP (BACID) PO SCH ×2 (10:40→17:20)
[2021-12-25 14:00] VITALS: BP 148/72
[2021-12-25] MEDS: cefTRIAXone SOD 1 GM in D5W MINI-BAG PLUS 50 ML IV SCH (17:19)
[2021-12-25] MEDS: LURASIDONE HCL 40MG TAB (LATUDA) PO SCH (17:20)
[2021-12-25] MEDS: DIVALPROEX 500MG *ER* TAB PO SCH (21:12)
[2021-12-25] MEDS: ATORVASTATIN 20 MG TAB PO SCH (21:13)
[2021-12-25] MEDS: oxyCODONE 5MG TAB PO PRN (21:29)
[2021-12-25 22:00] VITALS: BP 159/71
[2021-12-26 06:00] VITALS: BP 148/67
[2021-12-26 06:15] LABS: HEMATOCRIT 34.6 % (36.0-47.0); HEMOGLOBIN 11.5 g/dl (12.0-15.5); MEAN CORPUSCULAR HEMOGLOBIN 31.8 pg (27.0-33.0); MEAN CORPUSCULAR HGB CONC 33.2 g/dl (32.0-36.5); MEAN CORPUSCULAR VOLUME 95.6 fl (80.0-96.0); PLATELET COUNT, AUTOMATED 242 10^3/uL (150-450); RED BLOOD COUNT 3.62 10^6/uL (4.00-5.40); WHITE BLOOD COUNT 4.8 10^3/uL (4.0-10.0)
[2021-12-26] MEDS: LEVOTHYROXINE 75MCG TABLET (0.075MG) PO SCH (06:16)
[2021-12-26 06:33] LABS: BLOOD UREA NITROGEN 10 MG/DL (7-18); CALCIUM LEVEL 9.2 MG/DL (8.8-10.2); CARBON DIOXIDE LEVEL 25 MEQ/L (21-32); CHLORIDE LEVEL 102 MEQ/L (98-107); CREATININE FOR GFR 0.43 MG/DL (0.55-1.30); GLOMERULAR FILTRATION RATE > 60.0 (>39); GLUCOSE, FASTING 102 MG/DL (70-100); POTASSIUM SERUM 3.7 MEQ/L (3.5-5.1); SODIUM LEVEL 134 MEQ/L (136-145)
[2021-12-26] MEDS: HumaLOG INSULIN (NovoLOG) PER UNIT SC SCH ×4 (07:21→21:00)
[2021-12-26 08:00] VITALS: BP 140/75
[2021-12-26] MEDS: ASPIRIN 81MG ENTERIC TABLET PO SCH (08:38)
[2021-12-26] MEDS: DOXYCYCLINE HYCLATE 100MG TABLET PO SCH ×2 (08:39→20:25)
[2021-12-26] MEDS: amLODIPine 5 MG TAB PO SCH (08:39)
[2021-12-26] MEDS: NYSTATIN CREAM 15 GM TOP SCH ×2 (08:40→20:28)
[2021-12-26] MEDS: BRIMONIDINE 0.1% OPHTH SOLN 5 ML OU SCH ×2 (08:40→20:27)
[2021-12-26] MEDS: ENOXAPARIN 40MG/0.4ML SYRINGE (J1650 PER 10MG) SC SCH (08:40)
[2021-12-26] MEDS: LACTOBACILLUS ACIDOPHILUS CAP (BACID) PO SCH ×2 (10:13→17:04)
[2021-12-26 14:00] VITALS: BP 110/70
[2021-12-26] MEDS: LURASIDONE HCL 40MG TAB (LATUDA) PO SCH (17:04)
[2021-12-26] MEDS: cefTRIAXone SOD 1 GM in D5W MINI-BAG PLUS 50 ML IV SCH (17:05)
[2021-12-26] MEDS: ATORVASTATIN 20 MG TAB PO SCH (20:25)
[2021-12-26] MEDS: oxyCODONE 5MG TAB PO PRN (20:26)
[2021-12-26] MEDS: DIVALPROEX 500MG *ER* TAB PO SCH (20:26)
[2021-12-26 22:00] VITALS: BP 133/67
[2021-12-27] VITALS (10 sets, daily range): BP systolic 84–127; BP diastolic 56–74
[2021-12-27] MEDS: LEVOTHYROXINE 75MCG TABLET (0.075MG) PO SCH (06:03)
[2021-12-27 06:23] LABS: HEMATOCRIT 33.7 % (36.0-47.0); HEMOGLOBIN 11.2 g/dl (12.0-15.5); MEAN CORPUSCULAR HEMOGLOBIN 31.6 pg (27.0-33.0); MEAN CORPUSCULAR HGB CONC 33.2 g/dl (32.0-36.5); MEAN CORPUSCULAR VOLUME 95.2 fl (80.0-96.0); PLATELET COUNT, AUTOMATED 259 10^3/uL (150-450); RED BLOOD COUNT 3.54 10^6/uL (4.00-5.40); WHITE BLOOD COUNT 5.1 10^3/uL (4.0-10.0)
[2021-12-27 06:52] LABS: BLOOD UREA NITROGEN 10 MG/DL (7-18); CARBON DIOXIDE LEVEL 25 MEQ/L (21-32); CHLORIDE LEVEL 105 MEQ/L (98-107); CREATININE FOR GFR 0.51 MG/DL (0.55-1.30); GLOMERULAR FILTRATION RATE > 60.0 (>39); GLUCOSE, FASTING 90 MG/DL (70-100); POTASSIUM SERUM 4.4 MEQ/L (3.5-5.1); SODIUM LEVEL 138 MEQ/L (136-145)
[2021-12-27] MEDS: HumaLOG INSULIN (NovoLOG) PER UNIT SC SCH ×4 (08:23→21:00)
[2021-12-27] MEDS: DOXYCYCLINE HYCLATE 100MG TABLET PO SCH ×2 (08:29→21:31)
[2021-12-27] MEDS: amLODIPine 5 MG TAB PO SCH (08:30)
[2021-12-27] MEDS: ENOXAPARIN 40MG/0.4ML SYRINGE (J1650 PER 10MG) SC SCH (08:30)
[2021-12-27] MEDS: BRIMONIDINE 0.1% OPHTH SOLN 5 ML OU SCH ×2 (08:30→21:32)
[2021-12-27] MEDS: NYSTATIN CREAM 15 GM TOP SCH ×2 (08:32→21:00)
[2021-12-27] MEDS: CEFDINIR 300 MG CAP (OMNICEF) PO SCH ×2 (08:33→21:31)
[2021-12-27] MEDS: LACTOBACILLUS ACIDOPHILUS CAP (BACID) PO SCH ×2 (08:33→17:42)
[2021-12-27] MEDS: ASPIRIN 81MG ENTERIC TABLET PO SCH (08:33)
[2021-12-27] MEDS ORDERED: NS 1,000 ML IV ONE (10:50)
[2021-12-27] MEDS: LURASIDONE HCL 40MG TAB (LATUDA) PO SCH (17:42)
[2021-12-27] MEDS: ATORVASTATIN 20 MG TAB PO SCH (21:31)
[2021-12-27] MEDS: DIVALPROEX 500MG *ER* TAB PO SCH (21:32)
[2021-12-28 04:57] VITALS: BP 122/82
[2021-12-28] MEDS: LEVOTHYROXINE 75MCG TABLET (0.075MG) PO SCH (05:17)
[2021-12-28] MEDS: oxyCODONE 5MG TAB PO PRN (05:17)
[2021-12-28 06:11] LABS: HEMATOCRIT 36.7 % (36.0-47.0); MEAN CORPUSCULAR HEMOGLOBIN 31.6 pg (27.0-33.0); MEAN CORPUSCULAR HGB CONC 32.7 g/dl (32.0-36.5); MEAN CORPUSCULAR VOLUME 96.6 fl (80.0-96.0); PLATELET COUNT, AUTOMATED 269 10^3/uL (150-450)
[2021-12-28 06:25] LABS: BLOOD UREA NITROGEN 10 MG/DL (7-18); CALCIUM LEVEL 9.1 MG/DL (8.8-10.2); CARBON DIOXIDE LEVEL 24 MEQ/L (21-32); CHLORIDE LEVEL 104 MEQ/L (98-107); CREATININE FOR GFR 0.46 MG/DL (0.55-1.30); GLOMERULAR FILTRATION RATE > 60.0 (>39); GLUCOSE, FASTING 103 MG/DL (70-100); POTASSIUM SERUM 3.9 MEQ/L (3.5-5.1); SODIUM LEVEL 135 MEQ/L (136-145)
[2021-12-28] MEDS: HumaLOG INSULIN (NovoLOG) PER UNIT SC SCH ×4 (07:30→21:00)
[2021-12-28] MEDS: amLODIPine 5 MG TAB PO SCH (09:00)
[2021-12-28] MEDS: ENOXAPARIN 40MG/0.4ML SYRINGE (J1650 PER 10MG) SC SCH (09:44)
[2021-12-28] MEDS: ASPIRIN 81MG ENTERIC TABLET PO SCH (09:44)
[2021-12-28] MEDS: DOXYCYCLINE HYCLATE 100MG TABLET PO SCH ×2 (09:44→22:07)
[2021-12-28] MEDS: CEFDINIR 300 MG CAP (OMNICEF) PO SCH ×2 (09:44→22:08)
[2021-12-28] MEDS: LACTOBACILLUS ACIDOPHILUS CAP (BACID) PO SCH ×2 (09:44→17:16)
[2021-12-28] MEDS: BRIMONIDINE 0.1% OPHTH SOLN 5 ML OU SCH ×2 (09:44→22:08)
[2021-12-28] MEDS: NYSTATIN CREAM 15 GM TOP SCH ×2 (10:56→22:08)
[2021-12-28 14:00] VITALS: BP 101/69
[2021-12-28] MEDS: LURASIDONE HCL 40MG TAB (LATUDA) PO SCH (17:16)
[2021-12-28] MEDS: ATORVASTATIN 20 MG TAB PO SCH (22:08)
[2021-12-28] MEDS: DIVALPROEX 500MG *ER* TAB PO SCH (22:08)
[2021-12-28] MEDS: LORazepam 0.5 MG TAB PO PRN (22:23)
[2021-12-29 05:15] VITALS: BP 115/73
[2021-12-29 05:47] LABS: HEMATOCRIT 34.7 % (36.0-47.0); HEMOGLOBIN 11.5 g/dl (12.0-15.5); MEAN CORPUSCULAR HEMOGLOBIN 32.2 pg (27.0-33.0); MEAN CORPUSCULAR HGB CONC 33.1 g/dl (32.0-36.5); MEAN CORPUSCULAR VOLUME 97.2 fl (80.0-96.0); PLATELET COUNT, AUTOMATED 263 10^3/uL (150-450); RED BLOOD COUNT 3.57 10^6/uL (4.00-5.40); WHITE BLOOD COUNT 5.7 10^3/uL (4.0-10.0)
[2021-12-29] MEDS: LEVOTHYROXINE 75MCG TABLET (0.075MG) PO SCH (05:50)
[2021-12-29 05:51] VITALS: BP 130/78
[2021-12-29 06:21] LABS: BLOOD UREA NITROGEN 16 MG/DL (7-18); CARBON DIOXIDE LEVEL 24 MEQ/L (21-32); CHLORIDE LEVEL 105 MEQ/L (98-107); CREATININE FOR GFR 0.49 MG/DL (0.55-1.30); GLOMERULAR FILTRATION RATE > 60.0 (>39); GLUCOSE, FASTING 92 MG/DL (70-100); SODIUM LEVEL 137 MEQ/L (136-145)
[2021-12-29] MEDS: HumaLOG INSULIN (NovoLOG) PER UNIT SC SCH ×4 (07:30→21:00)
[2021-12-29] MEDS: NYSTATIN CREAM 15 GM TOP SCH ×2 (09:20→19:49)
[2021-12-29] MEDS: ENOXAPARIN 40MG/0.4ML SYRINGE (J1650 PER 10MG) SC SCH (09:20)
[2021-12-29] MEDS: BRIMONIDINE 0.1% OPHTH SOLN 5 ML OU SCH ×2 (09:20→19:49)
[2021-12-29] MEDS: ASPIRIN 81MG ENTERIC TABLET PO SCH (09:21)
[2021-12-29] MEDS: LACTOBACILLUS ACIDOPHILUS CAP (BACID) PO SCH ×2 (09:22→17:50)
[2021-12-29] MEDS: DOXYCYCLINE HYCLATE 100MG TABLET PO SCH ×2 (09:22→19:49)
[2021-12-29 09:23] VITALS: BP 130/62
[2021-12-29] MEDS: amLODIPine 5 MG TAB PO SCH (09:23)
[2021-12-29] MEDS: LURASIDONE HCL 40MG TAB (LATUDA) PO SCH (17:50)
[2021-12-29] MEDS: ATORVASTATIN 20 MG TAB PO SCH (19:49)
[2021-12-29] MEDS: DIVALPROEX 500MG *ER* TAB PO SCH (19:50)
[2021-12-30] MEDS: ACETAMINOPHEN TAB 650MG DOSE (2X325MG) PO PRN (00:01)
[2021-12-30] MEDS: LORazepam 0.5 MG TAB PO PRN ×2 (00:42→15:44)
[2021-12-30 06:00] VITALS: BP 122/74
[2021-12-30] MEDS: LEVOTHYROXINE 75MCG TABLET (0.075MG) PO SCH (06:03)
[2021-12-30] MEDS: HumaLOG INSULIN (NovoLOG) PER UNIT SC SCH ×4 (07:30→21:00)
[2021-12-30] MEDS: amLODIPine 5 MG TAB PO SCH (09:00)
[2021-12-30] MEDS: ENOXAPARIN 40MG/0.4ML SYRINGE (J1650 PER 10MG) SC SCH (09:19)
[2021-12-30] MEDS: DOXYCYCLINE HYCLATE 100MG TABLET PO SCH ×2 (09:20→20:11)
[2021-12-30] MEDS: LACTOBACILLUS ACIDOPHILUS CAP (BACID) PO SCH ×2 (09:20→17:31)
[2021-12-30] MEDS: BRIMONIDINE 0.1% OPHTH SOLN 5 ML OU SCH ×2 (09:20→20:11)
[2021-12-30] MEDS: ASPIRIN 81MG ENTERIC TABLET PO SCH (09:20)
[2021-12-30] MEDS: NYSTATIN CREAM 15 GM TOP SCH ×2 (09:21→20:11)
[2021-12-30 09:22] VITALS: BP 102/68
[2021-12-30] MEDS: LURASIDONE HCL 40MG TAB (LATUDA) PO SCH (17:31)
[2021-12-30] MEDS: DIVALPROEX 500MG *ER* TAB PO SCH (20:11)
[2021-12-30] MEDS: ATORVASTATIN 20 MG TAB PO SCH (20:12)
[2021-12-31 06:00] VITALS: BP 127/66
[2021-12-31] MEDS: LEVOTHYROXINE 75MCG TABLET (0.075MG) PO SCH (06:07)
[2021-12-31] MEDS: HumaLOG INSULIN (NovoLOG) PER UNIT SC SCH (07:39)
[2021-12-31 08:15] VITALS: BP 126/65
[2021-12-31] MEDS ORDERED: DOXY100T PO (08:18)
[2021-12-31 09:11] VITALS: BP 126/65
[2021-12-31] MEDS: ENOXAPARIN 40MG/0.4ML SYRINGE (J1650 PER 10MG) SC SCH (09:11)
[2021-12-31] MEDS: DOXYCYCLINE HYCLATE 100MG TABLET PO SCH (09:11)
[2021-12-31] MEDS: LACTOBACILLUS ACIDOPHILUS CAP (BACID) PO SCH (09:11)
[2021-12-31] MEDS: ASPIRIN 81MG ENTERIC TABLET PO SCH (09:11)
[2021-12-31] MEDS: amLODIPine 5 MG TAB PO SCH (09:11)
[2021-12-31] MEDS: NYSTATIN CREAM 15 GM TOP SCH (09:16)
[2021-12-31] MEDS: BRIMONIDINE 0.1% OPHTH SOLN 5 ML OU SCH (09:16)
== END 2021-12-31 11:55 | DRG 871 ==
LOC: M ED 16:06 → EDBD 16:06 → M ED INP 19:23 → M MSPAV 21:12
PROVIDERS: ADMIT Family Medicine; ATTEND Family Medicine
DX: A41.9 Sepsis, unspecified organism (principal); G93.41 Metabolic encephalopathy; J18.9 Pneumonia, unspecified organism; F03.90 Unspecified dementia, unspecified severity, without behavioral disturbance, psychotic disturbance, mood disturbance, and anxiety; R56.9 Unspecified convulsions; I10 Essential (primary) hypertension; E78.5 Hyperlipidemia, unspecified; H40.9 Unspecified glaucoma; J44.9 Chronic obstructive pulmonary disease, unspecified; E11.9 Type 2 diabetes mellitus without complications; E03.9 Hypothyroidism, unspecified; Z85.118 Personal history of other malignant neoplasm of bronchus and lung; Z92.3 Personal history of irradiation; R53.1 Weakness; Z79.82 Long term (current) use of aspirin; Z79.899 Other long term (current) drug therapy; Z88.8 Allergy status to other drugs, medicaments and biological substances; Z91.048 Other nonmedicinal substance allergy status

== ENCOUNTER → 2022-01-02 | Outpatient (REF) | payer MEDICARE, MEDICAID ==
[~2022-01-02] MED LIST changes: +MIRA1POW3 PO
[2022-01-02 11:43] LABS: HEMATOCRIT 39.1 % (36.0-47.0); HEMOGLOBIN 12.6 g/dl (12.0-15.5); MEAN CORPUSCULAR HEMOGLOBIN 31.7 pg (27.0-33.0); MEAN CORPUSCULAR HGB CONC 32.2 g/dl (32.0-36.5); MEAN CORPUSCULAR VOLUME 98.2 fl (80.0-96.0); PLATELET COUNT, AUTOMATED 305 10^3/uL (150-450); RED BLOOD COUNT 3.98 10^6/uL (4.00-5.40); WHITE BLOOD COUNT 5.6 10^3/uL (4.0-10.0)
[2022-01-02 12:14] LABS: ALBUMIN 3.2 GM/DL (3.2-5.2); ALT/SGPT 23 U/L (12-78); BILIRUBIN,TOTAL 0.4 MG/DL (0.2-1.0); BLOOD UREA NITROGEN 15 MG/DL (7-18); CALCIUM LEVEL 9.1 MG/DL (8.8-10.2); CARBON DIOXIDE LEVEL 26 MEQ/L (21-32); CHLORIDE LEVEL 101 MEQ/L (98-107); CHOLESTEROL LEVEL 115 MG/DL (<200); CREATININE FOR GFR 0.66 MG/DL (0.55-1.30); GLOMERULAR FILTRATION RATE > 60.0 (>39); GLUCOSE, FASTING 131 MG/DL (70-100); HDL CHOLESTEROL 46 MG/DL (>40); LDL CHOLESTEROL 53 MG/DL (<100); NON-HDL-C 69 MG/DL; POTASSIUM SERUM 4.2 MEQ/L (3.5-5.1); SODIUM LEVEL 138 MEQ/L (136-145); TOTAL PROTEIN 6.9 GM/DL (6.4-8.2); TRIGLYCERIDES LEVEL 82 MG/DL (<150)
== END ==
PROVIDERS: ATTEND Physician Assistant
DX: E78.00 Pure hypercholesterolemia, unspecified (principal)

== ENCOUNTER → 2022-01-30 | Outpatient (CLI) | payer MEDICARE, MEDICAID | LOC: M ONCR 09:46 | PROVIDERS: ATTEND General Practice | DX: C34.11 Malignant neoplasm of upper lobe, right bronchus or lung (principal); M79.18 Myalgia, other site; Z85.44 Personal history of malignant neoplasm of other female genital organs; Z87.891 Personal history of nicotine dependence; Z88.8 Allergy status to other drugs, medicaments and biological substances; Z92.21 Personal history of antineoplastic chemotherapy; Z92.3 Personal history of irradiation ==

== ENCOUNTER → 2022-02-04 | Outpatient (CLI) | payer MEDICARE, MEDICAID ==
[~2022-02-04] MED LIST changes: +GASTROGRAFIN SOLUTION 30ML (Q9963) As Ordered ONE; +ISOVUE-370 76% 100ML VIAL As Ordered ONE
== END ==
LOC: M RAD 14:33
PROVIDERS: ATTEND Specialist
DX: R91.8 Other nonspecific abnormal finding of lung field (principal); S22.080A Wedge compression fracture of T11-T12 vertebra, initial encounter for closed fracture; K76.0 Fatty (change of) liver, not elsewhere classified; C34.90 Malignant neoplasm of unspecified part of unspecified bronchus or lung
CPT/HCPCS: 71260; 74177; Q9963; Q9967

== ENCOUNTER → 2022-04-03 | Outpatient (REF) | payer MEDICARE, MEDICAID ==
[~2022-04-03] MED LIST changes: +ASPE16CR TOP; +CALC1TAB63 PO; +CYMB1CAP5 PO; -GASTROGRAFIN SOLUTION 30ML (Q9963) As Ordered ONE; -ISOVUE-370 76% 100ML VIAL As Ordered ONE; +MOME0.1C3 TOP; +OPTI0.5D5 OU; +PRESCAP PO
== END ==
PROVIDERS: ATTEND Podiatrist Foot & Ankle Surgery
DX: M10.071 Idiopathic gout, right ankle and foot (principal); Z53.9 Procedure and treatment not carried out, unspecified reason

== ENCOUNTER → 2022-04-24 | Outpatient (REF) ==
[2022-04-24 10:27] LABS: HEMATOCRIT 35.3 % (36.0-47.0); HEMOGLOBIN 11.6 g/dl (12.0-15.5); MEAN CORPUSCULAR HEMOGLOBIN 30.8 pg (27.0-33.0); MEAN CORPUSCULAR HGB CONC 32.9 g/dl (32.0-36.5); MEAN CORPUSCULAR VOLUME 93.6 fl (80.0-96.0); PLATELET COUNT, AUTOMATED 433 10^3/uL (150-450); RED BLOOD COUNT 3.77 10^6/uL (4.00-5.40); WHITE BLOOD COUNT 7.7 10^3/uL (4.0-10.0)
[2022-04-24 11:25] LABS: BLOOD UREA NITROGEN 11 MG/DL (7-18); CALCIUM LEVEL 8.7 MG/DL (8.8-10.2); CARBON DIOXIDE LEVEL 28 MEQ/L (21-32); CHLORIDE LEVEL 103 MEQ/L (98-107); CREATININE FOR GFR 0.64 MG/DL (0.55-1.30); GLOMERULAR FILTRATION RATE > 60.0 (>39); GLUCOSE, FASTING 137 MG/DL (70-100); SODIUM LEVEL 137 MEQ/L (136-145)
== END ==
PROVIDERS: ATTEND Physician Assistant
DX: R91.8 Other nonspecific abnormal finding of lung field (principal)

== ENCOUNTER → 2022-04-26 | Outpatient (REF) ==
[2022-04-26 12:24] LABS: BASO % 0.6 % (0.0-1.0); EOS # 0.1 10^3/uL (0.0-0.5); EOS % 1.7 % (0.0-3.0); HEMATOCRIT 30.7 % (36.0-47.0); HEMOGLOBIN 10.1 g/dl (12.0-15.5); LYMPH # 0.8 10^3/uL (1.5-5.0); LYMPH % 10.6 % (24.0-44.0); MEAN CORPUSCULAR HEMOGLOBIN 31.3 pg (27.0-33.0); MEAN CORPUSCULAR HGB CONC 32.9 g/dl (32.0-36.5); MONO # 1.1 10^3/uL (0.0-0.8); MONO % 14.9 % (2.0-8.0); NEUTROPHILS # 5.2 10^3/uL (1.5-8.5); NEUTROPHILS % 71.5 % (36.0-66.0); PLATELET COUNT, AUTOMATED 488 10^3/uL (150-450); RED BLOOD COUNT 3.23 10^6/uL (4.00-5.40); WHITE BLOOD COUNT 7.3 10^3/uL (4.0-10.0)
[2022-04-26 13:09] LABS: ERYTHROCYTE SEDIMENTATION RATE 70 mm/hr (0-30)
[2022-04-26 14:04] LABS: BLOOD UREA NITROGEN 14 MG/DL (7-18); C REACTIVE PROTEIN QUANTITATIV 5.97 MG/DL (0.00-0.30); CALCIUM LEVEL 8.1 MG/DL (8.8-10.2); CARBON DIOXIDE LEVEL 26 MEQ/L (21-32); CHLORIDE LEVEL 105 MEQ/L (98-107); CREATININE FOR GFR 0.44 MG/DL (0.55-1.30); GLOMERULAR FILTRATION RATE > 60.0 (>39); GLUCOSE, FASTING 151 MG/DL (70-100); POTASSIUM SERUM 4.1 MEQ/L (3.5-5.1); SODIUM LEVEL 136 MEQ/L (136-145); URIC ACID 2.9 MG/DL (2.6-6.0)
== END ==
PROVIDERS: ATTEND Physician Assistant
DX: R22.41 Localized swelling, mass and lump, right lower limb (principal)

== ENCOUNTER → 2022-04-29 | Outpatient (REF) ==
[2022-04-29 10:45] LABS: BASO % 0.6 % (0.0-1.0); EOS # 0.2 10^3/uL (0.0-0.5); EOS % 2.9 % (0.0-3.0); HEMATOCRIT 36.6 % (36.0-47.0); HEMOGLOBIN 11.5 g/dl (12.0-15.5); LYMPH % 14.3 % (24.0-44.0); MEAN CORPUSCULAR HEMOGLOBIN 30.8 pg (27.0-33.0); MEAN CORPUSCULAR HGB CONC 31.4 g/dl (32.0-36.5); MEAN CORPUSCULAR VOLUME 98.1 fl (80.0-96.0); MONO # 0.8 10^3/uL (0.0-0.8); MONO % 11.8 % (2.0-8.0); NEUTROPHILS # 4.8 10^3/uL (1.5-8.5); NEUTROPHILS % 69.7 % (36.0-66.0); PLATELET COUNT, AUTOMATED 581 10^3/uL (150-450); RED BLOOD COUNT 3.73 10^6/uL (4.00-5.40); WHITE BLOOD COUNT 6.9 10^3/uL (4.0-10.0)
[2022-04-29 11:05] LABS: ERYTHROCYTE SEDIMENTATION RATE 64 mm/hr (0-30)
[2022-04-29 11:06] LABS: BLOOD UREA NITROGEN 11 MG/DL (7-18); C REACTIVE PROTEIN QUANTITATIV 5.28 MG/DL (0.00-0.30); CALCIUM LEVEL 8.8 MG/DL (8.8-10.2); CARBON DIOXIDE LEVEL 26 MEQ/L (21-32); CHLORIDE LEVEL 104 MEQ/L (98-107); CREATININE FOR GFR 0.52 MG/DL (0.55-1.30); GLOMERULAR FILTRATION RATE > 60.0 (>39); GLUCOSE, FASTING 171 MG/DL (70-100); POTASSIUM SERUM 4.8 MEQ/L (3.5-5.1); SODIUM LEVEL 136 MEQ/L (136-145); URIC ACID 3.2 MG/DL (2.6-6.0)
== END ==
PROVIDERS: ATTEND Physician Assistant
DX: F31.9 Bipolar disorder, unspecified (principal)

== ENCOUNTER → 2022-05-01 | Outpatient (REF) ==
[2022-05-01 10:59] LABS: HEMATOCRIT 34.8 % (36.0-47.0); MEAN CORPUSCULAR HEMOGLOBIN 30.7 pg (27.0-33.0); MEAN CORPUSCULAR HGB CONC 31.6 g/dl (32.0-36.5); MEAN CORPUSCULAR VOLUME 97.2 fl (80.0-96.0); PLATELET COUNT, AUTOMATED 525 10^3/uL (150-450); RED BLOOD COUNT 3.58 10^6/uL (4.00-5.40)
[2022-05-01 11:26] LABS: BLOOD UREA NITROGEN 16 MG/DL (7-18); CALCIUM LEVEL 9.3 MG/DL (8.8-10.2); CARBON DIOXIDE LEVEL 24 MEQ/L (21-32); CHLORIDE LEVEL 103 MEQ/L (98-107); CREATININE FOR GFR 0.51 MG/DL (0.55-1.30); GLOMERULAR FILTRATION RATE > 60.0 (>39); GLUCOSE, FASTING 194 MG/DL (70-100); POTASSIUM SERUM 3.4 MEQ/L (3.5-5.1); SODIUM LEVEL 139 MEQ/L (136-145)
== END ==
PROVIDERS: ATTEND Physician Assistant
DX: R91.8 Other nonspecific abnormal finding of lung field (principal)

== ENCOUNTER → 2022-05-03 | Outpatient (REF) ==
[~2022-05-03] MED LIST changes: +BISA10SU4 PR; +DIVA125C6 PO; +DULO1CAP6 PO; +EUCELOT4 TOP; +FERR1TAB8 PO; +LIDO5TD TOP; +PANT-23 PO; +POLYOPD OU; +SENN-23 PO; +TRAM50TA2 PO; +VITA-158 PO
== END ==
PROVIDERS: ATTEND Physician Assistant
DX: F31.9 Bipolar disorder, unspecified (principal)

== ENCOUNTER → 2022-05-08 | Outpatient (REF) ==
[~2022-05-08] MED LIST changes: -BISA10SU4 PR; -DIVA125C6 PO; -DULO1CAP6 PO; -EUCELOT4 TOP; -FERR1TAB8 PO; -LIDO5TD TOP; -PANT-23 PO; -POLYOPD OU; -SENN-23 PO; -TRAM50TA2 PO; -VITA-158 PO
[2022-05-08 11:25] LABS: HEMATOCRIT 38.6 % (36.0-47.0); HEMOGLOBIN 11.9 g/dl (12.0-15.5); MEAN CORPUSCULAR HEMOGLOBIN 30.4 pg (27.0-33.0); MEAN CORPUSCULAR HGB CONC 30.8 g/dl (32.0-36.5); MEAN CORPUSCULAR VOLUME 98.5 fl (80.0-96.0); PLATELET COUNT, AUTOMATED 399 10^3/uL (150-450); RED BLOOD COUNT 3.92 10^6/uL (4.00-5.40)
[2022-05-08 11:59] LABS: BLOOD UREA NITROGEN 13 MG/DL (7-18); CALCIUM LEVEL 9.3 MG/DL (8.8-10.2); CARBON DIOXIDE LEVEL 28 MEQ/L (21-32); CHLORIDE LEVEL 98 MEQ/L (98-107); CREATININE FOR GFR 0.56 MG/DL (0.55-1.30); GLOMERULAR FILTRATION RATE > 60.0 (>39); GLUCOSE, FASTING 164 MG/DL (70-100); POTASSIUM SERUM 5.1 MEQ/L (3.5-5.1); SODIUM LEVEL 135 MEQ/L (136-145)
== END ==
PROVIDERS: ATTEND Physician Assistant
DX: R91.8 Other nonspecific abnormal finding of lung field (principal)

== ENCOUNTER → 2022-05-29 | Outpatient (REF) ==
[~2022-05-29] MED LIST changes: +AMLO1TAB25 PO; +BISA10SU4 PR; +DIVA125C6 PO; +DULO1CAP6 PO; +EUCELOT4 TOP; +FERR1TAB8 PO; +LIDO5TD TOP; +PANT-23 PO; +POLYOPD OU; +SENN-23 PO; +TRAM50TA2 PO; +VITA-158 PO
== END ==
PROVIDERS: ATTEND Physician Assistant
DX: R91.8 Other nonspecific abnormal finding of lung field (principal); Z53.9 Procedure and treatment not carried out, unspecified reason

== ENCOUNTER → 2022-06-05 | Outpatient (REF) ==
[2022-06-05 13:00] LABS: HEMATOCRIT 39.2 % (36.0-47.0); HEMOGLOBIN 12.7 g/dl (12.0-15.5); MEAN CORPUSCULAR HEMOGLOBIN 30.8 pg (27.0-33.0); MEAN CORPUSCULAR HGB CONC 32.4 g/dl (32.0-36.5); MEAN CORPUSCULAR VOLUME 95.1 fl (80.0-96.0); PLATELET COUNT, AUTOMATED 174 10^3/uL (150-450); RED BLOOD COUNT 4.12 10^6/uL (4.00-5.40); WHITE BLOOD COUNT 8.9 10^3/uL (4.0-10.0)
[2022-06-05 13:17] LABS: BLOOD UREA NITROGEN 14 MG/DL (7-18); CALCIUM LEVEL 9.5 MG/DL (8.8-10.2); CARBON DIOXIDE LEVEL 24 MEQ/L (21-32); CHLORIDE LEVEL 104 MEQ/L (98-107); CREATININE FOR GFR 0.54 MG/DL (0.55-1.30); GLOMERULAR FILTRATION RATE > 60.0 (>39); GLUCOSE, FASTING 133 MG/DL (70-100); SODIUM LEVEL 136 MEQ/L (136-145)
== END ==
PROVIDERS: ATTEND Physician Assistant
DX: I10 Essential (primary) hypertension (principal)

== ENCOUNTER → 2022-06-12 | Outpatient (REF) ==
[2022-06-12 12:19] LABS: HEMATOCRIT 40.6 % (36.0-47.0); HEMOGLOBIN 12.5 g/dl (12.0-15.5); MEAN CORPUSCULAR HEMOGLOBIN 30.1 pg (27.0-33.0); MEAN CORPUSCULAR HGB CONC 30.8 g/dl (32.0-36.5); MEAN CORPUSCULAR VOLUME 97.8 fl (80.0-96.0); PLATELET COUNT, AUTOMATED 308 10^3/uL (150-450); RED BLOOD COUNT 4.15 10^6/uL (4.00-5.40); WHITE BLOOD COUNT 10.6 10^3/uL (4.0-10.0)
[2022-06-12 13:03] LABS: BLOOD UREA NITROGEN 18 MG/DL (7-18); CALCIUM LEVEL 9.5 MG/DL (8.8-10.2); CARBON DIOXIDE LEVEL 21 MEQ/L (21-32); CHLORIDE LEVEL 105 MEQ/L (98-107); CREATININE FOR GFR 0.58 MG/DL (0.55-1.30); GLOMERULAR FILTRATION RATE > 60.0 (>39); GLUCOSE, FASTING 182 MG/DL (70-100); POTASSIUM SERUM 4.3 MEQ/L (3.5-5.1); SODIUM LEVEL 138 MEQ/L (136-145)
== END ==
PROVIDERS: ATTEND Physician Assistant
DX: I10 Essential (primary) hypertension (principal)

== ENCOUNTER → 2022-06-19 | Outpatient (REF) ==
[~2022-06-19] MED LIST changes: +NYST-13; +NYST-13 TOP; -NYST10CR; -NYST10CR TOP
== END ==
PROVIDERS: ATTEND Physician Assistant
DX: R91.8 Other nonspecific abnormal finding of lung field (principal); Z53.9 Procedure and treatment not carried out, unspecified reason

== ENCOUNTER → 2022-06-24 | Outpatient (REF) | payer MEDICARE, MEDICAID | PROVIDERS: ATTEND Internal Medicine | DX: I50.9 Heart failure, unspecified (principal); Z53.9 Procedure and treatment not carried out, unspecified reason ==

== ENCOUNTER → 2022-07-24 | Outpatient (REF) | payer MEDICARE, MEDICAID ==
[2022-07-24 11:54] LABS: HEMATOCRIT 38.8 % (36.0-47.0); HEMOGLOBIN 12.2 g/dl (12.0-15.5); MEAN CORPUSCULAR HEMOGLOBIN 31.5 pg (27.0-33.0); MEAN CORPUSCULAR HGB CONC 31.4 g/dl (32.0-36.5); MEAN CORPUSCULAR VOLUME 100.3 fl (80.0-96.0); PLATELET COUNT, AUTOMATED 340 10^3/uL (150-450); RED BLOOD COUNT 3.87 10^6/uL (4.00-5.40); WHITE BLOOD COUNT 7.2 10^3/uL (4.0-10.0)
[2022-07-24 13:26] LABS: BLOOD UREA NITROGEN 19 MG/DL (7-18); CALCIUM LEVEL 9.5 MG/DL (8.8-10.2); CARBON DIOXIDE LEVEL 26 MEQ/L (21-32); CHLORIDE LEVEL 105 MEQ/L (98-107); CREATININE FOR GFR 0.45 MG/DL (0.55-1.30); GLOMERULAR FILTRATION RATE > 60.0 (>39); GLUCOSE, FASTING 99 MG/DL (70-100); POTASSIUM SERUM 4.2 MEQ/L (3.5-5.1); SODIUM LEVEL 138 MEQ/L (136-145)
== END ==
PROVIDERS: ATTEND Internal Medicine
DX: R91.8 Other nonspecific abnormal finding of lung field (principal)

== ENCOUNTER → 2022-08-02 | Outpatient (CLI) | payer MEDICARE, MEDICAID | LOC: M ONCR 09:47 | PROVIDERS: ATTEND General Practice | DX: C34.11 Malignant neoplasm of upper lobe, right bronchus or lung (principal); Z79.890 Hormone replacement therapy; Z79.899 Other long term (current) drug therapy; Z85.44 Personal history of malignant neoplasm of other female genital organs; Z87.891 Personal history of nicotine dependence; Z88.8 Allergy status to other drugs, medicaments and biological substances; Z91.048 Other nonmedicinal substance allergy status; Z92.21 Personal history of antineoplastic chemotherapy; Z92.3 Personal history of irradiation ==

== ENCOUNTER → 2022-08-12 | Outpatient (REF) | payer MEDICARE, MEDICAID ==
[2022-08-12 12:01] LABS: BLOOD UREA NITROGEN 22 MG/DL (7-18); CARBON DIOXIDE LEVEL 28 MEQ/L (21-32); CHLORIDE LEVEL 106 MEQ/L (98-107); CREATININE FOR GFR 0.54 MG/DL (0.55-1.30); GLOMERULAR FILTRATION RATE > 60.0 (>39); GLUCOSE, FASTING 181 MG/DL (70-100); POTASSIUM SERUM 3.6 MEQ/L (3.5-5.1); SODIUM LEVEL 141 MEQ/L (136-145)
[2022-08-12 12:02] LABS: ALBUMIN 2.3 GM/DL (3.2-5.2); ALT/SGPT 7 U/L (12-78); BILIRUBIN,TOTAL 0.3 MG/DL (0.2-1.0); CALCIUM LEVEL 8.8 MG/DL (8.8-10.2); TOTAL PROTEIN 5.9 GM/DL (6.4-8.2)
== END ==
PROVIDERS: ATTEND Physician Assistant
DX: R63.4 Abnormal weight loss (principal)

== ENCOUNTER → 2022-08-21 | Outpatient (CLI) | payer MEDICARE, MEDICAID | LOC: M RAD 11:14 | PROVIDERS: ATTEND Internal Medicine Medical Oncology | DX: C34.90 Malignant neoplasm of unspecified part of unspecified bronchus or lung (principal) ==

== ENCOUNTER 2022-09-03 14:20 | Inpatient (IN) | payer MEDICARE, MEDICAID ==
[~2022-09-03] VITALS: Ht 162.6 cm; Wt 74.6 kg
[2022-09-03] MEDS ORDERED: LIDOCAINE 2% 5ML JELLY UROJET TOP ONE (14:45)
[2022-09-03] MEDS ORDERED: NS 2,240 ML in IV 1 EA IV ONE (14:45)
[2022-09-03 15:10] LABS: APPEARANCE, URINE MANUAL HAZY (CLEAR); COLOR, URINE MANUAL YELLOW (YELLOW); GLUCOSE, URINE (UA) MANUAL NEGATIVE (NEGATIVE); PROTEIN, URINE MANUAL 1+ mg/dL (NEGATIVE); SPECIFIC GRAVITY,URINE MANUAL 1.025 (1.002-1.035)
[2022-09-03 15:11] LABS: BILIRUBIN, URINE MANUAL NEGATIVE (NEGATIVE); BLOOD URINE MANUAL TRACE (NEGATIVE); KETONE, URINE MANUAL 2+ mg/dL (NEGATIVE); LEUKOCYTE ESTERASE, URINE MAN POSITIVE (NEGATIVE); NITRITE, URINE MANUAL POSITIVE (NEGATIVE); UROBILINOGEN, URINE MANUAL NORMAL (NORMAL)
[2022-09-03 15:19] LABS: INR 1.13; PROTHROMBIN TIME 14.7 SECONDS (12.5-14.5)
[2022-09-03 15:20] LABS: PARTIAL THROMBOPLASTIN TIME 29.7 SECONDS (24.8-34.2)
[2022-09-03 15:20] LABS: BACTERIA, URINE LARGE AMOUNT; BASO % 0.3 % (0.0-1.0); EOS % 0.1 % (0.0-3.0); HEMATOCRIT 40.6 % (36.0-47.0); HEMOGLOBIN 12.8 g/dl (12.0-15.5); HYALINE CAST, URINE NONE SEEN /lpf (0-1); LYMPH # 0.9 10^3/uL (1.5-5.0); LYMPH % 7.7 % (24.0-44.0); MEAN CORPUSCULAR HEMOGLOBIN 31.8 pg (27.0-33.0); MEAN CORPUSCULAR HGB CONC 31.5 g/dl (32.0-36.5); MEAN CORPUSCULAR VOLUME 100.7 fl (80.0-96.0); MONO % 17.7 % (2.0-8.0); MUCUS, URINE SMALL AMOUNT (NEGATIVE); NEUTROPHILS # 8.8 10^3/uL (1.5-8.5); NEUTROPHILS % 73.5 % (36.0-66.0); PLATELET COUNT, AUTOMATED 322 10^3/uL (150-450); RBC, URINE 0-1 /hpf (0-3); RED BLOOD COUNT 4.03 10^6/uL (4.00-5.40); SQUAMOUS EPITHELIAL CELL URINE SMALL AMOUNT /hpf (SMALL AMT)
[2022-09-03 15:43] LABS: CK-MB VALUE MASS 2.8 NG/ML (<3.6); MB/CK RELATIVE INDEX 1.68 (< OR =4)
[2022-09-03 15:49] LABS: ALBUMIN 2.6 GM/DL (3.2-5.2); ALT/SGPT 10 U/L (12-78); BILIRUBIN,DIRECT 0.2 MG/DL (0.0-0.2); BILIRUBIN,TOTAL 0.4 MG/DL (0.2-1.0); BLOOD UREA NITROGEN 28 MG/DL (7-18); CALCIUM LEVEL 9.4 MG/DL (8.8-10.2); CARBON DIOXIDE LEVEL 26 MEQ/L (21-32); CHLORIDE LEVEL 108 MEQ/L (98-107); CREATININE FOR GFR 0.61 MG/DL (0.55-1.30); GLOMERULAR FILTRATION RATE > 60.0 (>39); GLUCOSE, FASTING 171 MG/DL (70-100); POTASSIUM SERUM 3.4 MEQ/L (3.5-5.1); SODIUM LEVEL 143 MEQ/L (136-145); TOTAL PROTEIN 7.1 GM/DL (6.4-8.2)
[2022-09-03 16:03] LABS: MONO # 2.1 10^3/uL (0.0-0.8)
[2022-09-03] MEDS ORDERED: dexameTHASONE 20MG/5ML VIAL (J1100 PER 1MG) IV ONE (16:50)
[2022-09-03] MEDS ORDERED: cefTRIAXone SOD 1 GM in D5W MINI-BAG PLUS 50 ML IV ONE (17:05)
[2022-09-03] MEDS ORDERED: PROHANCE 279.3MG/ML 15ML VIAL As Ordered ONE (18:13)
[2022-09-03 18:16] LABS: RSV AMPLIFICATION NEGATIVE (NEGATIVE)
[2022-09-03] MEDS ORDERED: GABA-1171 PO (22:30)
[2022-09-03] MEDS ORDERED: MENT250L TP (22:30)
[2022-09-03] MEDS ORDERED: AMLO1TAB25 PO (22:30)
[2022-09-03] MEDS ORDERED: HOME MED LIST COMPLETE! XX SCH (22:35)
[2022-09-04] MEDS ORDERED: BISACODYL 10 MG SUPP PR PRN (01:45)
[2022-09-04] MEDS ORDERED: MORPHINE 10MG/0.5ML ORAL CONCENTRATE SOLUTION U/D SL PRN (01:45)
[2022-09-04] MEDS ORDERED: SCOPOLAMINE 1MG TRANSDERMAL PATCH TOP PRN (01:45)
[2022-09-04] MEDS ORDERED: FLEET ENEMA PR PRN (01:45)
[2022-09-04] MEDS ORDERED: LORazepam 2 MG/ML VIAL IV PRN (01:45)
[2022-09-04] MEDS ORDERED: levETIRAcetam INJection 750 MG in D5W 100 ML IV ONE (02:00)
[2022-09-04] MEDS ORDERED: LEVOTHYROXINE 75MCG TABLET (0.075MG) PO SCH (06:00)
[2022-09-04] MEDS ORDERED: DIVALPROEX SPRINKLE 125 MG CAP PO SCH (09:00)
[2022-09-04] MEDS ORDERED: GABAPENTIN 100 MG CAP PO SCH (09:00)
[2022-09-04] MEDS ORDERED: BRIMONIDINE 0.1% OPHTH SOLN 5 ML OU SCH (09:00)
[2022-09-04] MEDS ORDERED: SENOKOT S TAB PO SCH (09:00)
[2022-09-04] MEDS ORDERED: levETIRAcetam INJection 750 MG in D5W 100 ML IV SCH (09:00)
[2022-09-04] MEDS ORDERED: ATIV1TAB10 PO ×2 (11:33→11:38)
[2022-09-04] MEDS ORDERED: KEPP1TAB2 PO (11:33)
[2022-09-04] MEDS ORDERED: MORP1SOL5 PO ×2 (11:34→11:38)
[2022-09-04] MEDS ORDERED: HYOS125TA PO (11:34)
[2022-09-04 12:23] LABS: RSV AMPLIFICATION NEGATIVE (NEGATIVE)
[2022-09-04 13:25] VITALS: BP 116/58
== END 2022-09-04 14:00 | DRG 951 ==
LOC: M ED 14:20 → EDBD 14:20 → M ED INP 09-04 01:44
PROVIDERS: ADMIT Internal Medicine; ATTEND Internal Medicine
DX: Z51.5 Encounter for palliative care (principal); C79.31 Secondary malignant neoplasm of brain; C34.90 Malignant neoplasm of unspecified part of unspecified bronchus or lung; R56.9 Unspecified convulsions; Z92.3 Personal history of irradiation; Z66 Do not resuscitate; Z20.822 Contact with and (suspected) exposure to COVID-19; Z79.890 Hormone replacement therapy; Z79.899 Other long term (current) drug therapy; Z88.8 Allergy status to other drugs, medicaments and biological substances